=== PATIENT | female | born 1990 | race Caucasian/White ===

== ENCOUNTER → 2016-10-23 | Outpatient (CLI) | payer BC ==
--- NOTE | 2016-10-24 09:07 | US ---
EXAMINATION TYPE: US OB anatomy transabd DATE OF EXAM: 10/23/2016 3:31 PM COMPARISON: on PACS HISTORY: 26-year-old female large for dates, survey. TECHNIQUE: Transabdominal scanning. FINDINGS: EXAM MEASUREMENTS: GESTATIONAL AGE / DATING Physician Established: (19 weeks/2 days) EDC: 03/17/2017 Dates by LMP: does not correlate Dates by First Scan: (19 weeks/2 days) EDC: 03/17/2017 Dates by Current Scan for: (19 weeks/3 days) EDC: 03/16/2017 SURVEY IUP: Single PLACENTA: Posterior PREVIA: No previa BONILLA: 11.7 cm Normal CERVICAL LENGTH (transabdominal: norm > 3.0cm): 3.6 cm BIOMETRY PRESENTATION: Breech BPD: 4.4 cm 19 weeks / 2 days HC: 16.5 cm 19 weeks / 2 days AC: 13.1 cm 18 weeks / 5 days FL: 3.4 cm 20 weeks / 5 days ESTIMATED WEIGHT IN GRAMS: 299 grams ESTIMATED WEIGHT IN LBS/OZS: 0 lbs. 11 oz. WEIGHT PERCENTAGE BASED ON ESTABLISHED DATE: 61.6 % HC/AC: 1.26 (1.08 - 1.26) FL/AC: 25.8 HEART RATE: 151 bpm RHYTHM: Normal ANATOMY SEEN (within normal limits): Lateral Vent (< 1 cm) Cisterna Magna (< 1.1 cm) Nuchal Fold (< 0.6 cm) Cerebellum (varies with age) Choroid Plexus (bilateral) Midline Falx Cavus Septi Pellucidi Situs Nose / Lips Diaphragm Kidneys (bilateral) Bladder Cord Insert Arms (bilateral) Legs (bilateral) ANATOMY SEEN (does not appear within normal limits): Stomach - appears somewhat distended. Bowel - Sap Pp Consultant comments on an echogenic appearance to the bowel. This is not as well appreciate d on the provided images. ANATOMY NOT SEEN or SUBOPTIMALLY SEEN: Three Vessel Cord Outflow tracts: LVOT/RVOT Longitudinal Spine Transverse Spine Four Chamber Heart MATERNAL WALL MEASUREMENT: 6.3 cm from skin to anterior uterine wall (if exam limited due to body arguello bitus). TECHNOLOGIST NOTES: stomach appears large throughout exam, bowel in pelvis appears echogenic. Patient is scheduled for call back exam to better evaulate outflow tracts and 3 vessel cord not seen due to position. IMPRESSION: 1. Single live intrauterine with established gestational age of 19 weeks 2 days by dating s can. Current ultrasound biometry is concordant (19 weeks 3 days) placing the child at the 62nd percen tile for weight. 2. Given somewhat distended appearance to the stomach and the laborer fryer farm's comment regarding echogen ic appearance to the bowel, consider referring the patient for a more detailed survey at a high risk center in order to assess potential markers of aneuploidy. 3. A number of structures on the survey were not well seen (3 vessel cord, outflow tracts, spin e, four-chamber heart). While the patient has been scheduled for a rescan, it may be more prudent to reassess these structures at the high risk center. 4. BONILLA measured at the lower end of normal and HC/AC at the upper limits of normal.
== END | disposition home or self-care (01) ==
LOC: RADUSWWP 14:27
PROVIDERS: ATTEND Obstetrics & Gynecology
DX: O36.62X0 Maternal care for excessive fetal growth, second trimester, not applicable or unspecified (principal); Z3A.19 19 weeks gestation of pregnancy
CPT/HCPCS: 76811

== ENCOUNTER 2016-11-17 16:26 | Outpatient (CLI) | payer BC ==
[2016-11-17 17:01] LABS: Appearance,Urine Cloudy (Clear); Bilirubin,Urine Negative (Negative); Glucose,Urine (UA) Negative (Negative); Ketones,Urine Trace (Negative); Leukocyte Esterase,Urine Small (Negative); Mucus,Urine Rare /hpf; Nitrite,Urine Negative (Negative); PH, Urine 5.5 (5.0-8.0); Particle Count 14078; Protein,Urine 1+ (Negative); RBC,Urine >182 /hpf (0-5); Specific Gravity,Urine 1.019 (1.001-1.035); Squamous Epithelial Cell,Urine 2 /hpf (0-4); UA Billing (MACRO vs. MICRO) MICRO; Urobilinogen,Urine <2.0 mg/dL (<2.0)
== END 2016-11-17 17:45 | disposition home or self-care (01) ==
LOC: FBPOP 16:26
PROVIDERS: ATTEND Obstetrics & Gynecology
DX: Z53.9 Procedure and treatment not carried out, unspecified reason (principal)
CPT/HCPCS: 81001; 87086; 99213

== ENCOUNTER 2016-11-25 16:59 | Outpatient (CLI) | payer BC ==
[2016-11-25 17:21] VITALS: TEMP 97.6
[2016-11-25 17:28] LABS: Appearance,Urine Clear (Clear); Bacteria,Urine Rare /hpf; Bilirubin,Urine Negative (Negative); Glucose,Urine (UA) Negative (Negative); Ketones,Urine Negative (Negative); Leukocyte Esterase,Urine Negative (Negative); Mucus,Urine Occasional /hpf; Nitrite,Urine Negative (Negative); PH, Urine 5.5 (5.0-8.0); Particle Count 5507; Protein,Urine 1+ (Negative); RBC,Urine >182 /hpf (0-5); Specific Gravity,Urine 1.023 (1.001-1.035); Squamous Epithelial Cell,Urine 1 /hpf (0-4); UA Billing (MACRO vs. MICRO) MICRO; WBC,Urine 2 /hpf (0-5)
[2016-11-25] MEDS ORDERED: ONDANSETRON 4 MG/2 ML VIAL IM STA (17:51)
[2016-11-25] MEDS ORDERED: MORPHINE SULFATE 2 MG/ML SYRINGE IVP ONE (17:51)
[2016-11-25] MEDS ORDERED: LACTATED RINGERS 1,000 ML IV SCH (18:00)
[2016-11-25 20:32] VITALS: BP 131/59; PULSE 86; RESP 16
--- NOTE | 2016-11-28 21:55 | P.MSEPDOC ---
Presenting Problems - Arrival Data Date of Arrival on Unit: 11/25/16 Time of Arrival on Unit: 16:58 Mode of Transport: Wheelchair - Complaint OB-Reason for Admission/Chief Complaint: Pain Comment: left sided pain. Medical History - Information : 2 Para: 0 Term: 0 : 0 Abortions: Spontaneous or Elective: 1 Number of Living Children: 0 - Gestational Age Expected Date of Delivery: 03/17/17 Gestational Age by KIRK (wks/days): 24 Weeks and 3 Days - History Comment: previous history of kidney stones when a teenager Review of Systems - Review of Systems Constitutional: No problems Breast: No problems ENT: No problems Cardiovascular: No problems Respiratory: No problems Gastrointestinal: No problems Genitourinary: No problems Musculoskeletal: No problems Neurological: No problems Skin: No problems Vital Signs - Temperature Temperature: 97.6 F Temperature Source: Oral - Pulse Right Brachial Pulse Rate: 86 Pulse Assessment Method: Automatic Cuff - Respirations Respiratory Rate: 16 - Blood Pressure Right Arm Blood Pressure: 131/59 Blood Pressure Mean: 83 Blood Pressure Source: Automatic Cuff Medical Screen Scoring (Pre) - Total Score Total Score (Pre): 2 - Level of Risk Level of Risk: Low (0-5) Physician Notification (Pre) - Physician Notified Physician Notified Date: 11/25/16 Physician Notified Time: 17:48 Physician/Practitioner Notifed:: Dr Wheeler Spoke With: Dr Liam Jackson Order Received: Yes Medical Screen Scoring (Post) - Total Score Total Score (Post): 0 - Post Treatment Level of Risk Post Treatment Level of Risk: Low (0-5) Physician Notification (Post) - Physician Notified Physician Notified Date: 11/25/16 Physician Notified Time: 20:10 Physician/Practitioner Notified:: Liam Jackson Order Received: Yes (discharge home) Disposition - Disposition OB Disposition: Physician follow up in office, Discharge to home, Written follow up instructions reviewed Discharge Date: 11/25/16 Discharge Time: 20:20 I agree with the RN Medical Screening Exam: Yes Risk & Benefit of care provided described in d/c instruction: Yes
== END 2016-11-25 20:30 | disposition home or self-care (01) ==
LOC: FBPOP 16:59
PROVIDERS: ATTEND Obstetrics & Gynecology
DX: O99.89 Other specified diseases and conditions complicating pregnancy, childbirth and the puerperium (principal); R10.12 Left upper quadrant pain; R10.32 Left lower quadrant pain; Z3A.34 34 weeks gestation of pregnancy; Z87.442 Personal history of urinary calculi
CPT/HCPCS: 99214; 96360; 96361; 96375; 81001; J2270; 96365

== ENCOUNTER → 2016-12-07 | Outpatient (CLI) | payer BC ==
[2016-12-07 13:05] LABS: CH 28.9; CHCM 33.4; HCT 37.9 % (34.0-46.0); HGB 12.5 gm/dL (11.4-16.0); MCH 28.6 pg (25.0-35.0); MCHC 32.9 g/dL (31.0-37.0); MCV 86.9 fL (80.0-100.0); Mean Platelet Volume 7.5; RBC 4.36 m/uL (3.80-5.40); RDW 12.8 % (11.5-15.5); WBC 11.2 k/uL (3.8-10.6)
== END | disposition home or self-care (01) ==
LOC: LABWHC1 11:42
PROVIDERS: ATTEND Obstetrics & Gynecology
DX: Z34.82 Encounter for supervision of other normal pregnancy, second trimester (principal)
CPT/HCPCS: 36415; 82950; 85027; 86850

== ENCOUNTER → 2016-12-11 | Outpatient (CLI) | payer BC ==
[2016-12-11 12:37] LABS: Glucose 3 Hour, Gest 97 mg/dL
== END | disposition home or self-care (01) ==
LOC: LABWHC1 08:25
PROVIDERS: ATTEND Obstetrics & Gynecology
DX: O24.419 Gestational diabetes mellitus in pregnancy, unspecified control (principal); Z3A.00 Weeks of gestation of pregnancy not specified
CPT/HCPCS: 36415; 82951; 82952

== ENCOUNTER → 2017-02-12 | Outpatient (CLI) | payer BC ==
--- NOTE | 2017-02-12 10:23 | US ---
EXAMINATION TYPE: US OB anatomy transabd DATE OF EXAM: 02/12/2017 10:05 AM COMPARISON: Previous study dated 10/23/2016. HISTORY: Large for dates Third Trimester O36.3x0 LGA, pt has no complaints at this time TECHNIQUE: Transabdominal (TA) EXAM MEASUREMENTS: GESTATIONAL AGE / DATING Physician Established: (35 weeks/2 days) EDC: 03/17/2017 Dates by LMP: Unknown Dates by First Scan: (35 weeks/2 days) EDC: 03/17/2017 Dates by Current Scan for: (35 weeks/2 days) EDC: 03/17/2017 SURVEY IUP: Single PLACENTA: Posterior PREVIA: No previa BONILLA: 13.3 cm Normal CERVICAL LENGTH (transabdominal: norm > 3.0cm): 2.5 cm BIOMETRY PRESENTATION: Vertex BPD: 8.9 cm 36 weeks / 1 days HC: 31.7 cm 35 weeks / 5 days AC: 31.4 cm 35 weeks / 2 days FL: 6.8 cm 35 weeks / 0 days ESTIMATED WEIGHT IN GRAMS: 2654 grams ESTIMATED WEIGHT IN LBS/OZS: 5 lbs. 14 oz. WEIGHT PERCENTAGE BASED ON ESTABLISHED DATE: 49.6 % HC/AC: 1.01 Normal FL/AC: 22 Normal HEART RATE: 143 bpm RHYTHM: Normal ANATOMY SEEN (within normal limits): * Lateral Vent (< 1 cm) 0.4 cm Midline Falx Cavus Septi Pellucidi Stomach Situs Diaphragm Kidneys (bilateral) Bladder Cord Insert Three Vessel Cord Longitudinal Spine Transverse Spine ANATOMY NOT SEEN: * Cisterna Magna (< 1.1 cm) cm * Nuchal Fold (< 0.6 cm) cm * Cerebellum (varies with age) cm Choroid Plexus (bilateral) Four Chamber Heart Outflow tracts: LVOT/RVOT Nose / Lips Arms (bilateral) Legs (bilateral) Single, viable IUP/ Growth parameters wnl/ Cervix TA 2.5 cm, results called to Sarah Lundberg off ice and said TV not needed for cervical length IMPRESSION: NAVARRO FETUS PRESENT IN A VERTEX LIE WITH A GESTATIONAL AGE OF 35 WEEKS 2 DAYS +/- 3 WEEKS. ESTIMA SALINA DATE OF CONFINEMENT BASED ON THIS EXAMINATION IS 03/17/2017. PLEASE NOTE THE LIMITATIONS AND THE MORPHOLOGIC EXAMINATION.
== END | disposition home or self-care (01) ==
LOC: RADUSWWP 09:41
PROVIDERS: ATTEND Obstetrics & Gynecology
DX: O36.63X0 Maternal care for excessive fetal growth, third trimester, not applicable or unspecified (principal); Z3A.35 35 weeks gestation of pregnancy
CPT/HCPCS: 76811

== ENCOUNTER 2017-03-09 17:33 | Inpatient (IN) | payer BC ==
[2017-03-09] MEDS ORDERED: TERBUTALINE 1 MG/ML VIAL SQ PRN (18:11)
[2017-03-09] MEDS ORDERED: METHYLERGONOVINE 0.2 MG/ML 1 ML AMP IM PRN (18:11)
[2017-03-09] MEDS ORDERED: CARBOPROST TROMETHAMINE 250 MCG/ML 1 ML AMP IM PRN (18:11)
[2017-03-09] MEDS ORDERED: OXYTOCIN 10 UNIT/ML 1 ML VIAL IM PRN (18:11)
[2017-03-09] MEDS ORDERED: LIDOCAINE 1% (PF) 10 MG/ML (30 ML SDV) SQ PRN (18:11)
[2017-03-09] MEDS ORDERED: OXYTOCIN 20 UNITS/1000 ML NS 1,000 ML IV SCH (18:15)
[2017-03-09 19:02] LABS: Basophils % (A) 0 %; CH 28.9; CHCM 33.5; Eosinophils # (A) 0.1 k/uL (0-0.7); Eosinophils % (A) 1 %; HCT 38.1 % (34.0-46.0); HDW 2.66; HGB 12.6 gm/dL (11.4-16.0); Luc # (Auto) 0.25; Luc % (Auto) 2; Lymphocytes # (A) 2.1 k/uL (1.0-4.8); Lymphocytes % (A) 17 %; MCH 28.7 pg (25.0-35.0); MCV 86.8 fL (80.0-100.0); Mean Platelet Volume 7.5; Monocytes # (A) 0.5 k/uL (0-1.0); Monocytes % (A) 5 %; Neutrophils # (A) 9.1 k/uL (1.3-7.7); Neutrophils % (A) 75 %; RBC 4.39 m/uL (3.80-5.40); RDW 14.1 % (11.5-15.5); WBC 12.2 k/uL (3.8-10.6); WBC (Perox) 13.32
[2017-03-09] MEDS: LACTATED RINGERS 1,000 ML IV SCH (19:10)
[2017-03-09 19:37] VITALS: BMI 42.9
[2017-03-09] MEDS: BUTORPHANOL 1 MG/ML 1 ML VIAL IV PRN (23:39)
[2017-03-10] MEDS: BUTORPHANOL 1 MG/ML 1 ML VIAL IV PRN (02:07)
[2017-03-10] MEDS: LACTATED RINGERS 1,000 ML IV SCH ×5 (02:08→23:20)
[2017-03-10] MEDS ORDERED: SODIUM CHLORIDE 0.9% 100 ML BAG ONE (03:36)
[2017-03-10] MEDS ORDERED: fentaNYL (PF) 50 MCG/ML 5 ML AMP ONE (03:36)
[2017-03-10] MEDS ORDERED: BUPIVACAINE (PF) 0.25% 30 ML VIAL ONE (03:36)
[2017-03-10] MEDS ORDERED: BUPIVACAINE (PF) 0.25% 25 ML, fentaNYL (PF) 200 MCG in SODIUM CHLORIDE 0.9% 71 ML EPIDURAL ONE (04:01)
[2017-03-10] MEDS ORDERED: CLINDAMYCIN 900 MG in DEXTROSE 5% IN WATER 50 ML IVPB SCH ×4 (05:00→08:00)
--- NOTE | 2017-03-10 06:14 | P.HPOB ---
History of Present Illness H&P Date: 03/10/17 Chief Complaint: Spontaneous rupture of membranes on 03/09/2017 at approximately 4:45 PM This is a 26-year-old female 2 para 0 at 38-6/7 weeks with an estimated date of confinement of 03/17/2017, who presented with spontaneous rupture of membranes at approximately 4:45 PM on 03/09/2017. She denied feeling any regular contractions. care has been with Dr. Meredith and has been uncomplicated per patient. labs: Obstetrical ultrasound-normal anatomy Group B streptococcus-negative GC/Chlamydia-negative Random glucose-96 Hepatitis B surface antigen-negative Hemoglobin-13.5 Toxoplasma-negative Syphilis antibody-negative Rubella-nonimmune Blood type-B- Antibody screen-negative One hour Glucola-131, three-hour Glucola within normal limits RhoGAM was given at approximately 28 weeks Obstetrical history: . 1 miscarriage. Review of Systems Constitutional: Denies chills, Denies fever Eyes: denies blurred vision, denies pain Ears, nose, mouth and throat: Denies headache, Denies sore throat Cardiovascular: Denies chest pain, Denies shortness of breath Respiratory: Denies cough Gastrointestinal: Denies abdominal pain, Denies diarrhea, Denies nausea, Denies vomiting Genitourinary: Reports pelvic pain, Reports Musculoskeletal: Denies myalgias Integumentary: Denies pruritus, Denies rash Neurological: Denies numbness, Denies weakness Psychiatric: Denies anxiety, Denies depression Past Medical History Past Medical History: Asthma History of Any Multi-Drug Resistant Organisms: None Reported Past Surgical History: No Surgical Hx Reported Past Anesthesia/Blood Transfusion Reactions: No Reported Reaction Past Psychological History: No Psychological Hx Reported Smoking Status: Never smoker Past Alcohol Use History: None Reported Past Drug Use History: None Reported - Past Family History Mother Family Medical History: Hypertension Additional Family Medical History / Comment(s): Multiple Sclerosis Medications and Allergies Home Medications Medication Instructions Recorded Confirmed Type Pnv,Calcium 72/Iron/Folic Acid 1 tab PO DAILY MDD 1 03/09/17 03/09/17 History [ Plus Tablet] Allergies Allergy/AdvReac Type Severity Reaction Status Date / Time amoxicillin Allergy Unknown Verified 03/09/17 17:52 Exam Osteopathic Statement: *. No significant issues noted on an osteopathic structural exam other than those noted in the History and Physical/Consult. - Vital Signs Vital signs: Vital Signs Temp Pulse Resp BP Pulse Ox 03/09/17 19:34 96.4 F L 91 16 140/68 03/09/17 17:52 96.4 F L 91 16 140/68 98 Intake and Output 03/09/17 03/09/17 03/10/17 14:59 22:59 06:59 Intake Total 1999 Balance 1999 Intake: Intake, IV Titration 2000 Amount Lactated Ringers 1,000 ml 2000 @ 125 mls/hr IV .Q8H [facility] Rx#:[id number] Other: # Voids 3 1 Weight 113.398 kg Patient Weight 03/10/17 06:59 Weight 113.398 kg HEENT: Within normal limits Heart: Regular rate and rhythm Lungs: Clear to auscultation bilaterally Abdomen: Cervix: 1 cm/60%/-3 station, positive amnisure with clear fluid noted heart tones: Reactive Contractions: Irregular Extremities: Negative Homans Results Result Diagrams: 03/09/17 18:40 Abnormal Lab Results - Last 24 Hours (Table) 03/09/17 Range/Units 18:40 WBC 12.2 H (3.8-10.6) k/uL Neutrophils # 9.1 H (1.3-7.7) k/uL Assessment and Plan (1) 38 weeks gestation of Status: Acute (2) Spontaneous rupture of membranes Status: Acute Plan: Admission. Oxytocin augmentation of labor. Epidural anesthesia when making change. Possible antibiotics if concern for prolonged rupture membranes.
[2017-03-10] MEDS ORDERED: CITRIC ACID-SODIUM CITRATE 15 ML CUP PO ONE (08:52)
[2017-03-10] MEDS ORDERED: ceFAZolin 1,000 MG VIAL ONE (09:08)
[2017-03-10] MEDS ORDERED: KETOROLAC 30 MG/ML 1 ML VIAL ONE (09:08)
[2017-03-10] MEDS ORDERED: OXYTOCIN 10 UNIT/ML 1 ML VIAL ONE (09:08)
--- NOTE | 2017-03-10 10:03 | P.OP ---
Date of Procedure: 03/10/17 Preoperative Diagnosis: 1. Intrauterine at 39-0/7 weeks. 2. Nonreassuring heart tones Postoperative Diagnosis: Same Procedure(s) Performed: Primary low transverse section Implants: Anesthesia: epidural Surgeon: Kelsey Wheeler Fiber Design Engineer #1: Marco Antonio Ortiz Estimated Blood Loss (ml): 600 Pathology: other (Placenta) Condition: stable Disposition: floor Indications for Procedure: This is a 26-year-old female 2 para 0 who initially presented at 38-6/7 weeks with spontaneous rupture of membranes with clear fluid. She was only noted to be 1 cm at that time and was started on oxytocin augmentation of labor. She progressed to approximately 4-4-1/2 cm and did receive epidural anesthesia. She began having repetitive late decelerations and therefore oxytocin was turned off. Once the oxytocin was turned back on she began to have repetitive lates again and therefore the decision was made to proceed with section. I have discussed the risks, benefits, and alternative therapies for the above- mentioned procedure and for both sedation/anesthesia as well as necessary blood products administration, if indicated, as they pertain to this patient. The patient has indicated her understanding and acceptance of the risks and procedures discussed. Operative Findings: A viable female infant is noted in the vertex presentation with nuchal cord 1 and scores of 8 at 1 minute and 9 at 5 minutes and infant weight of 7 lbs. 5 oz. There was noted to be some caput formation and the baby was low in the pelvis. Normal uterus tubes and ovaries were noted. Description of Procedure: The patient is taken to the operating room where she is placed in the dorsal supine position with leftward tilt after epidural anesthesia is bolused. She is prepped and draped in the normal sterile fashion. Skin was tested and found to be adequately anesthetized. A Pfannenstiel skin incision was made with a scalpel. A second knife was used to carry the incision down to the underlying layer of fascia. The fascia was nicked in the midline with a scalpel and then extended laterally bilaterally with Weiss scissors. The anterior lip of the fascia was grasped with 2 Krissy clamps and then dissected off the underlying rectus muscle in the midline with Weiss scissors. The inferior aspect of the fascial incision was grasped with 2 Krissy clamps and dissected off the underlying rectus muscle and the midline with Weiss scissors. Next the peritoneum layer was tented up with 2 hemostats and then entered sharply with the scalpel. The incision is extended superiorly and inferiorly with Metzenbaum scissors. Next a DeLee retractor is placed. The vesicouterine peritoneum is entered sharply with Metzenbaum scissors and extended laterally bilaterally with Metzenbaum scissors and then the bladder flap is pushed inferiorly. The lower uterine segment is incised in transverse fashion with the scalpel and then bluntly entered with a hemostat. Clear fluid is noted. The incision was then extended laterally bilaterally with 2 fingers. Next the 's head is delivered through the incision. Nose and mouth are bulb suctioned. The remainder of the is easily delivered and placed on mother 's abdomen. Cord is clamped and cut. is taken to warmer by nursing staff. Cord blood is obtained secondary to Rh- status. Uterine fundus is gently massaged and placenta is delivered manually. Uterus is exteriorized and cleared of all clots and debris. Uterine incision is closed with 0 Vicryl suture in a running locked fashion. A second layer of 0 Vicryl suture is used in a running fashion for hemostasis. Once adequate hemostasis as assured, the vesicouterine peritoneum is reapproximated with 2-0 Vicryl suture in a running fashion. Posterior cul-de-sac is suctioned of all clots and debris. Uterus is returned to the abdomen. Incision is noted to be hemostatic. Peritoneal layer is closed with 0 Vicryl suture in a running fashion. Muscle layer is reapproximated with 0 Vicryl suture in interrupted fashion. Fascia layer is then closed with 0 PDS suture with 2 sutures meeting in the midline and the knots buried in either side and in the midline. The subcutaneous tissue was then closed with 2-0 Vicryl suture. Skin layer was then closed with joni. All sponge and needle counts are correct. The patient is taken to recovery room in stable condition.
[2017-03-10] MEDS ORDERED: LANOLIN CREAM 5 GM TUBE TOPICAL PRN (10:33)
[2017-03-10] MEDS ORDERED: NALOXONE 0.4 MG/ML 1 ML VIAL IV PRN (10:33)
[2017-03-10] MEDS ORDERED: OXYTOCIN 20 UNITS/1000 ML NS 1,000 ML IV SCH (10:33)
[2017-03-10] MEDS ORDERED: diphenhydrAMINE 50 MG CAP PO PRN (10:33)
[2017-03-10] MEDS ORDERED: ZOLPIDEM 5 MG TAB PO PRN (10:33)
[2017-03-10] MEDS ORDERED: IBUPROFEN 600 MG TAB PO PRN (10:33)
[2017-03-10] MEDS ORDERED: ONDANSETRON 4 MG/2 ML VIAL IVP PRN (10:33)
[2017-03-10] MEDS ORDERED: ACETAMINOPHEN TAB 325 MG TAB PO PRN (10:33)
[2017-03-10] MEDS ORDERED: MEASLES-MUMPS-RUBELLA VACC/PF 12,500 UNIT/0.5 ML VIAL SQ ONE (10:33)
[2017-03-10] MEDS ORDERED: METOCLOPRAMIDE 5 MG/ML 2 ML VIAL IVP PRN (10:33)
[2017-03-10] MEDS ORDERED: diphenhydrAMINE 50 MG/ML 1 ML VIAL IVP PRN ×2 (10:33)
[2017-03-10] MEDS ORDERED: diphenhydrAMINE 25 MG CAP PO PRN (10:33)
[2017-03-10] MEDS ORDERED: Acetaminophen-Codeine 300-30mg TAB PO PRN (10:33)
[2017-03-10] MEDS: HYDROmorphone PCA 5 MG/25 ML SYRINGE IV PRN ×3 (11:05→19:13)
[2017-03-10] MEDS: SENNOSIDES-DOCUSATE SODIUM 1 EACH TAB PO SCH (20:16)
[2017-03-10] MEDS: KETOROLAC 30 MG/ML 1 ML VIAL IVP PRN (20:25)
[2017-03-11] MEDS: KETOROLAC 30 MG/ML 1 ML VIAL IVP PRN ×2 (03:39→09:21)
[2017-03-11] MEDS: HYDROmorphone PCA 5 MG/25 ML SYRINGE IV PRN (05:50)
[2017-03-11 07:38] LABS: Basophils % (A) 0 %; CH 28.6; CHCM 33.3; Eosinophils # (A) 0.1 k/uL (0-0.7); Eosinophils % (A) 1 %; HCT 32.8 % (34.0-46.0); HDW 2.62; HGB 10.7 gm/dL (11.4-16.0); Luc # (Auto) 0.17; Luc % (Auto) 2; Lymphocytes # (A) 2.1 k/uL (1.0-4.8); Lymphocytes % (A) 21 %; MCH 28.2 pg (25.0-35.0); MCHC 32.7 g/dL (31.0-37.0); MCV 86.2 fL (80.0-100.0); Monocytes # (A) 0.5 k/uL (0-1.0); Monocytes % (A) 5 %; Neutrophils # (A) 7.3 k/uL (1.3-7.7); Neutrophils % (A) 72 %; RDW 14.2 % (11.5-15.5); WBC 10.3 k/uL (3.8-10.6); WBC (Perox) 11.03
--- NOTE | 2017-03-11 08:13 | P.PNOBGPC ---
Subjective - Subjective Principal diagnosis: Status post section postoperative day #1 Interval history: Patient is doing well. She is passing flatus and no bowel movement yet. Bleeding is slowing. She is breast-feeding without difficulty. Patient reports: Reports appetite normal, Reports voiding normally, Reports pain well controlled, Reports ambulating normally : doing well, nursing well Objective - Vital Signs Latest vital signs: Vital Signs Temp Pulse Resp BP Pulse Ox 03/11/17 03:54 98.2 F 96 18 124/81 95 03/10/17 23:55 98.3 F 85 18 120/57 98 03/10/17 20:00 98.2 F 97 18 127/66 03/10/17 16:00 98.1 F 87 16 113/72 03/10/17 12:08 85 16 134/62 03/10/17 11:38 62 16 131/62 03/10/17 11:08 75 16 121/58 97 03/10/17 10:53 69 16 121/58 03/10/17 10:38 80 16 116/55 03/10/17 10:33 98 03/10/17 10:19 76 16 121/64 98 03/10/17 10:08 97.6 F 96 16 115/64 Intake and Output 03/10/17 03/11/17 03/11/17 22:59 06:59 14:59 Intake Total 1000 1000 Output Total 200 Balance 1000 800 Intake: IV 1000 Lactated Ringers 1,000 ml 1000 @ 125 mls/hr IV .Q8H [facility] Rx#:[id number] Intake, IV Titration 1000 Amount Oxytocin 20 Units/1000 ml 1000 Ns 1,000 ml @ Per Protocol IV .Q0M [facility] Rx#: [id number] Output: Urine 200 Other: Voiding Method Indwelling Catheter - Exam Extremities: Present: normal, edema (Trace). Absent: tenderness Abdomen: Present: normal appearance, soft (Positive bowel sounds 4). Absent: distention, tenderness Incision: Present: normal, dry, intact. Absent: erythematous Uterus: Present: normal, firm. Absent: tenderness - Labs Labs: Abnormal Lab Results - Last 24 Hours (Table) 03/11/17 Range/Units 06:36 Hgb 10.7 L (11.4-16.0) gm/dL Hct 32.8 L (34.0-46.0) % Assessment and Plan (1) 38 weeks gestation of Current Visit: Yes Status: Acute Code(s): Z3A.38 - 38 WEEKS GESTATION OF SNOMED Code(s): 26195123 (2) Spontaneous rupture of membranes Current Visit: Yes Status: Acute Code(s): DEW1308 - SNOMED Code(s): 451805697 (3) delivery delivered Narrative/Plan: Impression is status post delivery postoperative day #1. Plan is to continue with postoperative care. Will discontinue PHYSICAL THERAPY SUPERVISOR pump today and switch to oral pain medications. Encouraged ambulation. Current Visit: Yes Status: Acute Code(s): O82 - ENCOUNTER FOR DELIVERY WITHOUT INDICATION SNOMED Code(s): 194708881
[2017-03-11] MEDS: SENNOSIDES-DOCUSATE SODIUM 1 EACH TAB PO SCH ×2 (10:13→20:36)
[2017-03-11 12:23] VITALS: RESP 16
[2017-03-11] MEDS: Acetaminophen-Codeine 300-30mg TAB PO PRN ×2 (12:28→20:36)
[2017-03-11] MEDS: LACTATED RINGERS 1,000 ML IV SCH (21:12)
[2017-03-11] MEDS ORDERED: Rhogam IMMUNE GLOBULIN 1,500 UNIT/1 ML IM ONE (21:50)
[2017-03-11] MEDS ORDERED: DIPH,PERTUS(ACELL)TETVAC-LF 0.5 ML VIAL IM ONE (21:54)
[2017-03-12] MEDS: Acetaminophen-Codeine 300-30mg TAB PO PRN (08:25)
[2017-03-12] MEDS: SENNOSIDES-DOCUSATE SODIUM 1 EACH TAB PO SCH (08:26)
[2017-03-12 08:40] VITALS: BP 136/71; PULSE 96; TEMP 97.7
--- NOTE | 2017-03-12 09:34 | P.DS ---
Providers Date of admission: 03/09/17 17:58 Expected date of discharge: 03/12/17 Attending physician: Jaz Meredith Primary care physician: Stated None - Discharge Diagnosis(es) (1) delivery delivered Current Visit: Yes Status: Acute Hospital Course: Patient presented with spontaneous rupture membranes and in labor. She underwent a primary low transverse for failure to progress and nonreassuring heart tones. Her postoperative course was uncomplicated. She is denying nausea, vomiting, chest pain, shortness of breath or calf pain. Her incision is clean, dry, intact. She'll be discharged home postoperative day #2 in stable condition to follow-up with me in one week. Plan - Discharge Summary New Discharge Prescriptions: New Acetaminophen-Codeine 300-30mg [Tylenol w/codeine #3] 2 each PO Q4HR PRN #30 tab PRN Reason: Moderate To Severe Pain Ibuprofen [Motrin] 600 mg PO Q6HR PRN #30 tab PRN Reason: Mild Pain Or Fever >= 100.5 No Action Pnv,Calcium 72/Iron/Folic Acid [ Plus Tablet] 1 tab PO DAILY MDD 1 Discharge Medication List Pnv,Calcium 72/Iron/Folic Acid [ Plus Tablet] 1 tab PO DAILY MDD 1 03/09 [History] Acetaminophen-Codeine 300-30mg [Tylenol w/codeine #3] 2 each PO Q4HR PRN #30 tab 03/12/17 [Rx] Ibuprofen [Motrin] 600 mg PO Q6HR PRN #30 tab 03/12/17 [Rx] Follow up Appointment(s)/Referral(s): Jaz Meredith DO [Doctor of Osteopathic Medicine] - 1 Week Discharge Disposition: HOME SELF-CARE
== END 2017-03-12 14:35 | disposition home or self-care (01) | DRG 766 ==
LOC: FBPOP 17:33 → 4FBP 17:58
PROVIDERS: ADMIT Obstetrics & Gynecology; ATTEND Obstetrics & Gynecology
PROC: 00HU33Z Insertion of Infusion Device into Spinal Canal, Percutaneous Approach (ICD-10-PCS; 2017-03-09)
PROC: 3E0R3CZ (ICD-10-PCS; 2017-03-09)
PROC: 3E0134Z Introduction of Serum, Toxoid and Vaccine into Subcutaneous Tissue, Percutaneous Approach (ICD-10-PCS; 2017-03-10)
PROC: 10D00Z1 Extraction of Products of Conception, Low, Open Approach (ICD-10-PCS; principal; 2017-03-10 08:45)
PROC: 3E0234Z Introduction of Serum, Toxoid and Vaccine into Muscle, Percutaneous Approach (ICD-10-PCS; 2017-03-11)
DX: O69.81X0 Labor and delivery complicated by cord around neck, without compression, not applicable or unspecified (principal); J45.909 Unspecified asthma, uncomplicated; Z37.0 Single live birth; O62.2 Other uterine inertia; O76 Abnormality in fetal heart rate and rhythm complicating labor and delivery; O99.52 Diseases of the respiratory system complicating childbirth; Z23 Encounter for immunization; Z3A.38 38 weeks gestation of pregnancy; Z79.899 Other long term (current) drug therapy
CPT/HCPCS: 59025; 84112; 85025; 88307; 90471; 90707; 90715; 99213

== ENCOUNTER → 2018-05-09 | Outpatient (CLI) | payer OTHER ==
[2018-05-09 10:19] LABS: Basophils % (A) 0 %; Eosinophils % (A) 0 %; HCT 40.4 % (34.0-46.0); HGB 13.5 gm/dL (11.4-16.0); Lymphocytes % (A) 10 %; MCH 28.2 pg (25.0-35.0); MCHC 33.4 g/dL (31.0-37.0); MCV 84.5 fL (80.0-100.0); Mean Platelet Volume 6.5; Monocytes # (A) 0.9 k/uL (0-1.0); Monocytes % (A) 9 %; Neutrophils # (A) 7.4 k/uL (1.3-7.7); Neutrophils % (A) 78 %; Platelet Count 226 k/uL (150-450); RBC 4.78 m/uL (3.80-5.40); RDW 12.4 % (11.5-15.5); WBC 9.5 k/uL (3.8-10.6)
[2018-05-09 10:37] LABS: ALT 30 U/L (9-52); AST 22 U/L (14-36); Albumin 4.2 g/dL (3.5-5.0); Alkaline Phosphatase 88 U/L (38-126); Anion Gap 12 mmol/L; Blood Urea Nitrogen 12 mg/dL (7-17); Calcium 8.9 mg/dL (8.4-10.2); Carbon Dioxide 27 mmol/L (22-30); Chloride 100 mmol/L (98-107); Cholesterol 145 mg/dL (<200); Glucose 100 mg/dL (74-99); HDL Cholesterol 40 mg/dL (40-60); LDL Cholesterol,Calculated 90 mg/dL (0-99); Sodium 139 mmol/L (137-145); Total Bilirubin 0.7 mg/dL (0.2-1.3); Total Protein 7.1 g/dL (6.3-8.2); Triglycerides 75 mg/dL (<150)
== END | disposition home or self-care (01) ==
LOC: LABWHC1 09:26
PROVIDERS: ATTEND Family Medicine
DX: Z00.00 Encounter for general adult medical examination without abnormal findings (principal)
CPT/HCPCS: 36415; 80053; 80061; 84443; 85025

== ENCOUNTER → 2018-05-09 | Outpatient (CLI) | payer OTHER ==
--- NOTE | 2018-05-09 14:11 | XR ---
EXAMINATION TYPE: XR KUB DATE OF EXAM: 05/09/2018 10:11 AM CLINICAL HISTORY: Left-sided abdominal pain TECHNIQUE: Single supine KUB image of the abdomen is obtained. COMPARISON: None. FINDINGS: There are bilateral renal calculi. On the right there are likely midpole renal calculi cheng uring 6 mm, 7 mm, and 2 mm and the left there are likely upper pole and midpole renal calculi measur ing 4 mm and 9 mm. Scattered gas is seen in nondilated small bowel loops. Gas and fecal material is s een in nondilated colon. The osseous structures are intact. IMPRESSION: Bilateral nephrolithiasis. Renal ultrasound could assess for obstructive uropathy.
== END | disposition home or self-care (01) ==
LOC: RADXRMAIN 09:47
PROVIDERS: ATTEND Family Medicine
DX: N20.0 Calculus of kidney (principal)
CPT/HCPCS: 74018

== ENCOUNTER → 2018-05-16 | Outpatient (CLI) | payer OTHER ==
[2018-05-17 01:38] LABS: Gliadin AB IgA, Unit 5.2 U/mL
[2018-05-17 01:58] LABS: Clam IgE <0.10 kU/L; Codfish IgE <0.10 kU/L; Egg White IgE <0.10 kU/L; Peanut IgE <0.10 kU/L; Scallop IgE <0.10 kU/L; Shrimp IgE <0.10 kU/L; Soybean IgE <0.10 kU/L; Walnut IgE (Food) <0.10 kU/L
== END | disposition home or self-care (01) ==
LOC: LABWHC1 15:15
PROVIDERS: ATTEND Family Medicine
DX: K59.09 Other constipation (principal); R19.7 Diarrhea, unspecified; Z91.018 Allergy to other foods
CPT/HCPCS: 36415; 82785; 83516; 86003

== ENCOUNTER → 2018-05-30 | Outpatient (CLI) | payer OTHER ==
--- NOTE | 2018-05-31 07:01 | US ---
EXAMINATION TYPE: US kidneys/renal and bladder DATE OF EXAM: 05/30/2018 COMPARISON: KUB May 09, 2018 CLINICAL HISTORY: N20.0 Kidney stones. Large body habitus uterus large bladder also ordered , please give volume for full bladder and post void EXAM MEASUREMENTS: Right Kidney: 10.9 x 3.7 x 6.3 cm Left Kidney: 10.8 x 4.4 x 4.7 cm Post Void Residual Volume: 0.94 mL bladder volume : 60.33 ml Right Kidney: no hydronephrosis, hyperechoic nonshadowing foci Left Kidney: no hydronephrosis, hyperechoic nonshadowing foci Bladder: wnl Bilateral Jets seen: no Normal Post Void Residual: yes There is no evidence for hydronephrosis at this point in time. Nephrolithiasis is redemonstrated. No masses are identified. The urinary bladder is not greatly distended. Bilateral ureteral jets are n ot seen. IMPRESSION: No hydronephrosis is evident bilaterally. Hyperechoic foci correspond to renal calculi seen better on plain films.
== END | disposition home or self-care (01) ==
LOC: RADUSWWP 15:21
PROVIDERS: ATTEND Family Medicine
DX: N20.0 Calculus of kidney (principal)
CPT/HCPCS: 76770

== ENCOUNTER 2018-06-20 08:10 | Day surgery (SDC) | payer OTHER ==
[2018-06-18 10:24] VITALS: BMI 39.4
[~2018-06-20 08:10] MED LIST: LACTATED RINGERS 1,000 ML IV SCH
[2018-06-20 08:35] VITALS: RESP 16; TEMP 98.3
[2018-06-20] MEDS ORDERED: MIDAZOLAM 2 MG/2 ML VIAL ONE (09:15)
[2018-06-20] MEDS ORDERED: LIDOCAINE 1% INJ 10MG/ML (20 ML MDV) ONE (09:15)
[2018-06-20] MEDS ORDERED: fentaNYL (PF) 50 MCG/ML 2 ML AMP ONE (09:15)
[2018-06-20] MEDS ORDERED: PROPOFOL 10 MG/ML 20 ML VIAL IV ONE (09:15)
--- NOTE | 2018-06-20 10:04 | P.PCN ---
Date of Procedure: 06/20/18 Procedure(s) Performed: Procedure: 1. Esophagogastroduodenoscopy and biopsy. 2. Colonoscopy and biopsy. Preoperative diagnosis: Abdominal bloating and change in bowel habits. Postoperative diagnosis: 1. Small sliding hiatal hernia with no obvious esophagitis or complicated reflux disease. 2. Mild gastritis and duodenitis. 3. Normal colon and terminal ileum. 4. Multiple biopsies obtained from the duodenum, antrum, esophagus, terminal ileum and random colon. Preparation: HalfLytely prep. Sedation: Was provided by anesthesia. Brief clinical history: The patient is a 27-year-old female who was evaluated in the office regarding chronic symptoms of abdominal pain, bloating and irregular bowel movements. She reported nausea but no vomiting. No bleeding or unintentional weight loss. This evaluation is to assess for inflammatory bowel disease, celiac disease or other pathology. She has a cousin with Crohn' s. Procedure: With the patient on her left lateral decubitus position and after informed consent and adequate sedation, I passed the Olympus-GIF 160 video upper endoscope through the cricopharyngeus down the esophagus. There was a small sliding hiatal hernia but no obvious esophagitis or complicated reflux disease. The endoscope was then passed into the stomach which was insufflated with air and inspected in detail including the retroflex view in the cardia. There was some mottling and erythema in the antrum but no ulcers or erosions. Pyloric channel did not show any ulcers. Duodenal bulb showed some erythema and a faint erosion or 2 but no ulcers or bleeding. Post bulbar area and descending duodenum within normal limits. I obtained biopsies from the duodenum , antrum and esophagus then the endoscope was withdrawn and I proceeded with the colonoscopy. Perianal area did not show any fissures or fistulas. There were no masses felt on digital rectal examination. The Olympus CFQ 160L video colonoscope was then inserted in the rectum in the usual fashion and advanced to the cecum. I intubated the ileocecal valve and examined the terminal ileum. Terminal ileum and colon appeared healthy with no edema, erythema, friability, ulceration, exudation or spontaneous bleeding. No polyps or tumors were seen or any obvious diverticular disease or other pathology. I obtained the multiple biopsies from the terminal ileum and randomly from the colon then I retroflexed the endoscope in the rectum before the endoscope was withdrawn. The patient tolerated the procedure well. Plan: The patient was reassured. Will await biopsy results. She is scheduled to follow-up in the office next month. We would keep you updated on her progress.
[2018-06-20 10:16] VITALS: BP 98/62; PULSE 76
== END 2018-06-20 11:01 | disposition home or self-care (01) ==
LOC: ORWHC2ENDO 08:10
DX: K29.50 Unspecified chronic gastritis without bleeding (principal); K21.0 Gastro-esophageal reflux disease with esophagitis; K29.80 Duodenitis without bleeding; K44.9 Diaphragmatic hernia without obstruction or gangrene; R19.4 Change in bowel habit; J45.909 Unspecified asthma, uncomplicated; Z87.442 Personal history of urinary calculi; Z79.899 Other long term (current) drug therapy; Z88.0 Allergy status to penicillin
CPT/HCPCS: 43239; 45380; 81025; 88305

== ENCOUNTER 2019-04-18 07:17 | Emergency (ER) | payer OTHER ==
[2019-04-18] MEDS ORDERED: MORPHINE SULFATE 4 MG/ML SYRINGE IV STA (07:36)
[2019-04-18] MEDS ORDERED: SODIUM CHLORIDE 0.9% 1,000 ML IV STA ×2 (07:36)
[2019-04-18] MEDS ORDERED: diphenhydrAMINE 50 MG/ML 1 ML VIAL IVP STA (07:40)
[2019-04-18] MEDS ORDERED: METOCLOPRAMIDE 5 MG/ML 2 ML VIAL IVP STA (07:40)
--- NOTE | 2019-04-18 07:58 | ED ---
Abdominal Pain HPI - General Chief Complaint: Abdominal Pain Stated Complaint: Flank pain Time Seen by Provider: 04/18/19 07:22 Source: patient, RN notes reviewed, old records reviewed Mode of arrival: ambulatory Limitations: no limitations - History of Present Illness Initial Comments: 28-year-old female recently possibly 5 weeks. She presents emergency department today with sudden onset of right-sided abdominal and flank pain. Patient reports symptoms started 2 hours ago. She has a extensive history of kidney stones and like she is passing a kidney stone at this time. Patient relates that she's had no fevers or chills Patient has had some episodes of dry heaving. Patient states this is her third previous [employer] SERVICES ANALYST is Dr. Teddy forde. Patient relates that she has had no vaginal bleeding or discharge. - Related Data Home Medications Medication Instructions Recorded Confirmed Pnv,Calcium 72/Iron/Folic Acid 1 tab PO DAILY 03/09/17 04/18/19 [ Plus Tablet] DULoxetine HCL [Cymbalta] 60 mg PO HS 04/18/19 04/18/19 Previous Rx's Medication Instructions Recorded Acetaminophen with Codeine 1 tab PO Q6H PRN 3 Days #12 tab 04/18/19 [Tylenol w/codeine #3] Metoclopramide HCl [Reglan] 10 mg PO TID #20 tablet 04/18/19 Tamsulosin HCl [Flomax] 0.4 mg PO DAILY #10 capsule 04/18/19 Allergies Allergy/AdvReac Type Severity Reaction Status Date / Time amoxicillin Allergy Unknown Verified 04/18/19 08:15 Childhood gluten AdvReac Diarrhea Verified 04/18/19 08:15 Review of Systems ROS Statement: Those systems with pertinent positive or pertinent negative responses have been documented in the HPI. ROS Other: All systems not noted in ROS Statement are negative. Past Medical History Past Medical History: Asthma Additional Past Medical History / Comment(s): migraines, bronchitis, constipation alternating with diarrhea, hx kidney stones, hx kidney and bladder infections History of Any Multi-Drug Resistant Organisms: None Reported Past Surgical History: Section Past Anesthesia/Blood Transfusion Reactions: Motion Sickness Past Psychological History: Anxiety, Depression Smoking Status: Never smoker Past Alcohol Use History: None Reported Past Drug Use History: None Reported - Past Family History Mother Family Medical History: No Reported History Additional Family Medical History / Comment(s): Multiple Sclerosis General Exam - General Exam Comments Initial Comments: Patient is a 28-year-old female para Patient appears in moderate discomfort. Limitations: no limitations General appearance: alert, in no apparent distress Head exam: Present: atraumatic, normocephalic, normal inspection Eye exam: Present: normal appearance, PERRL, EOMI. Absent: scleral icterus, conjunctival injection, periorbital swelling ENT exam: Present: normal exam, mucous membranes moist Neck exam: Present: normal inspection. Absent: tenderness, meningismus, lymphadenopathy Respiratory exam: Present: normal lung sounds bilaterally. Absent: respiratory distress, wheezes, rales, rhonchi, stridor Cardiovascular Exam: Present: regular rate, normal rhythm, normal heart sounds. Absent: systolic murmur, diastolic murmur, rubs, gallop, clicks GI/Abdominal exam: Present: soft, normal bowel sounds. Absent: distended, tende rness, guarding, rebound, rigid Extremities exam: Present: normal inspection, full ROM, normal capillary refill. Absent: tenderness, pedal edema, joint swelling, calf tenderness Back exam: Present: normal inspection Neurological exam: Present: alert, oriented X3, CN II-XII intact Psychiatric exam: Present: normal affect, normal mood Skin exam: Present: warm, dry, intact, normal color. Absent: rash Course Vital Signs 04/18/19 07:19 Temperature 97.9 F Pulse Rate 85 Respiratory 18 Rate Blood Pressure 135/90 O2 Sat by Pulse 98 Oximetry - Reevaluation(s) Reevaluation #1: 04/18/19 07:58 I discussed with symmetrical Patient receiving IV morphine with a recently pre gnant. Patient appears in significant discomfort. Patient agrees to receive 1 dose of morphine. Medical Decision Making - Medical Decision Making Patient is a 28-year-old female with a history of kidney stones. She presents with sudden onset of right flank pain. She is currently early . The same Patient has no vaginal bleeding or discharge. Clinical presentation of kidney stone with an onset of pain. Urinalysis positive for blood. No significant infection. Lab work was unremarkable. Ultrasound shows with suspected to be intrauterine but too early to detect heart tones. Patient's blood type is B-. She denies any vaginal bleeding or discharge. Declined pelvic exam at this time. Patient will not receive RhoGAM. Ultrasound kidney does show evidence of right-sided hydronephrosis with a 1.9 cm stone in the renal pelvis. Patient may have further stone causing hydronephrosis. At this time Patient is pain is manageable a dose of morphine. I discussed the Patient needs follow-up with urology and [employer] SERVICES ANALYST. Discussed short course of Tylenol codeine for pain as well as Flomax and Reglan. Patient was informed of risk of these medications in . - Lab Data Result diagrams: 04/18/19 07:42 04/18/19 07:42 Lab Results 04/18/19 04/18/19 04/18/19 Range/Units 07:42 07:42 07:42 WBC 9.5 (3.8-10.6) k/uL RBC 4.80 (3.80-5.40) m/uL Hgb 13.2 (11.4-16.0) gm/dL Hct 40.5 (34.0-46.0) % MCV 84.3 (80.0-100.0) fL MCH 27.5 (25.0-35.0) pg MCHC 32.6 (31.0-37.0) g/dL RDW 12.8 (11.5-15.5) % Plt Count 267 (150-450) k/uL Neutrophils % 65 % Lymphocytes % 26 % Monocytes % 4 % Eosinophils % 3 % Basophils % 0 % Neutrophils # 6.2 (1.3-7.7) k/uL Lymphocytes # 2.5 (1.0-4.8) k/uL Monocytes # 0.4 (0-1.0) k/uL Eosinophils # 0.3 (0-0.7) k/uL Basophils # 0.0 (0-0.2) k/uL Sodium 138 (137-145) mmol/L Potassium 4.3 (3.5-5.1) mmol/L Chloride 108 H (98-107) mmol/L Carbon Dioxide 19 L (22-30) mmol/L Anion Gap 11 mmol/L BUN 11 (7-17) mg/dL Creatinine 0.53 (0.52-1.04) mg/dL Est GFR (CKD-EPI)AfAm >90 (>60 ml/min/1.73 sqM) Est GFR (CKD-EPI)NonAf >90 (>60 ml/min/1.73 sqM) Glucose 116 H (74-99) mg/dL Calcium 8.8 (8.4-10.2) mg/dL Total Bilirubin 0.5 (0.2-1.3) mg/dL AST 22 (14-36) U/L ALT 24 (9-52) U/L Alkaline Phosphatase 53 (38-126) U/L Total Protein 6.9 (6.3-8.2) g/dL Albumin 4.1 (3.5-5.0) g/dL Amylase 53 (30-110) U/L Lipase 57 (23-300) U/L HCG, Quant 1691.0 mIU/mL Urine Color Yellow Urine Appearance Cloudy H (Clear) Urine pH 6.0 (5.0-8.0) Ur Specific [place] 1.029 (1.001-1.035) Urine Protein 1+ H (Negative) Urine Glucose (UA) Negative (Negative) Urine Ketones Negative (Negative) Urine Blood Moderate H (Negative) Urine Nitrite Negative (Negative) Urine Bilirubin Negative (Negative) Urine Urobilinogen <2.0 (<2.0) mg/dL Ur Leukocyte Esterase Trace H (Negative) Urine RBC >182 H (0-5) /hpf Urine WBC 11 H (0-5) /hpf Ur Squamous Epith Cells 6 H (0-4) /hpf Urine Bacteria Rare H (None) /hpf Urine Mucus Rare H (None) /hpf Blood Type Blood Type Recheck 04/18/19 Range/Units 07:42 WBC (3.8-10.6) k/uL RBC (3.80-5.40) m/uL Hgb (11.4-16.0) gm/dL Hct (34.0-46.0) % MCV (80.0-100.0) fL MCH (25.0-35.0) pg MCHC (31.0-37.0) g/dL RDW (11.5-15.5) % Plt Count (150-450) k/uL Neutrophils % % Lymphocytes % % Monocytes % % Eosinophils % % Basophils % % Neutrophils # (1.3-7.7) k/uL Lymphocytes # (1.0-4.8) k/uL Monocytes # (0-1.0) k/uL Eosinophils # (0-0.7) k/uL Basophils # (0-0.2) k/uL Sodium (137-145) mmol/L Potassium (3.5-5.1) mmol/L Chloride (98-107) mmol/L Carbon Dioxide (22-30) mmol/L Anion Gap mmol/L BUN (7-17) mg/dL Creatinine (0.52-1.04) mg/dL Est GFR (CKD-EPI)AfAm (>60 ml/min/1.73 sqM) Est GFR (CKD-EPI)NonAf (>60 ml/min/1.73 sqM) Glucose (74-99) mg/dL Calcium (8.4-10.2) mg/dL Total Bilirubin (0.2-1.3) mg/dL AST (14-36) U/L ALT (9-52) U/L Alkaline Phosphatase (38-126) U/L Total Protein (6.3-8.2) g/dL Albumin (3.5-5.0) g/dL Amylase (30-110) U/L Lipase (23-300) U/L HCG, Quant mIU/mL Urine Color Urine Appearance (Clear) Urine pH (5.0-8.0) Ur Specific [place] (1.001-1.035) Urine Protein (Negative) Urine Glucose (UA) (Negative) Urine Ketones (Negative) Urine Blood (Negative) Urine Nitrite (Negative) Urine Bilirubin (Negative) Urine Urobilinogen (<2.0) mg/dL Ur Leukocyte Esterase (Negative) Urine RBC (0-5) /hpf Urine WBC (0-5) /hpf Ur Squamous Epith Cells (0-4) /hpf Urine Bacteria (None) /hpf Urine Mucus (None) /hpf Blood Type B Negative Blood Type Recheck No - Radiology Data Radiology results: report reviewed 4.8 cm intrauterine fluid collection likely her presenting early intrauterine with residual reaction with however no yolk sac pole seen. There for ectopic and sweatiness torsion cannot be ruled out. Short- term follow-up assuming she G level pelvic ultrasound 5-7 days is recommended. Moderate right hydronephrosis with multiple renal colliculi largest and pelvis measuring 1.9 cm. Additional nonobstructing bilateral renal colliculi To 1.2 cm on the left. Disposition Clinical Impression: Early stage of , Right kidney stone Disposition: HOME SELF-CARE Condition: Good Instructions (If sedation given, give patient instructions): Ureteral Stones (ED) Additional Instructions: Patient has a follow-up with your [employer] SERVICES ANALYST. Repeat her hCG levels in 2 days. Rest, remain hydrated. Use the medications as prescribed. Prescriptions: Tamsulosin HCl [Flomax] 0.4 mg PO DAILY #10 capsule Metoclopramide HCl [Reglan] 10 mg PO TID #20 tablet Acetaminophen with Codeine [Tylenol w/codeine #3] 1 tab PO Q6H PRN 3 Days #12 tab PRN Reason: Pain Is patient prescribed a controlled substance at d/c from ED?: No Referrals: Blaze Escobar MD [Primary Care Provider] - 1-2 days Time of Disposition: 10:39
[2019-04-18 07:59] LABS: Basophils % (A) 0 %; Eosinophils # (A) 0.3 k/uL (0-0.7); Eosinophils % (A) 3 %; HCT 40.5 % (34.0-46.0); HGB 13.2 gm/dL (11.4-16.0); Lymphocytes # (A) 2.5 k/uL (1.0-4.8); Lymphocytes % (A) 26 %; MCH 27.5 pg (25.0-35.0); MCHC 32.6 g/dL (31.0-37.0); MCV 84.3 fL (80.0-100.0); Mean Platelet Volume 6.3; Monocytes # (A) 0.4 k/uL (0-1.0); Monocytes % (A) 4 %; Neutrophils # (A) 6.2 k/uL (1.3-7.7); Neutrophils % (A) 65 %; Platelet Count 267 k/uL (150-450); RDW 12.8 % (11.5-15.5); WBC 9.5 k/uL (3.8-10.6)
[2019-04-18 08:03] LABS: Appearance,Urine Cloudy (Clear); Bacteria,Urine Rare /hpf; Bilirubin,Urine Negative (Negative); Blood,Urine Moderate (Negative); Color,Urine Yellow; Glucose,Urine (UA) Negative (Negative); Ketones,Urine Negative (Negative); Leukocyte Esterase,Urine Trace (Negative); Mucus,Urine Rare /hpf; Nitrite,Urine Negative (Negative); Protein,Urine 1+ (Negative); RBC,Urine >182 /hpf (0-5); Specific Gravity,Urine 1.029 (1.001-1.035); Squamous Epithelial Cell,Urine 6 /hpf (0-4); Urobilinogen,Urine <2.0 mg/dL (<2.0); WBC,Urine 11 /hpf (0-5)
[2019-04-18 08:13] LABS: ALT 24 U/L (9-52); AST 22 U/L (14-36); African American GFR (CKD) >90 (>60 ml/min/1.73 sqM); Albumin 4.1 g/dL (3.5-5.0); Alkaline Phosphatase 53 U/L (38-126); Amylase 53 U/L (30-110); Anion Gap 11 mmol/L; Blood Urea Nitrogen 11 mg/dL (7-17); Calcium 8.8 mg/dL (8.4-10.2); Carbon Dioxide 19 mmol/L (22-30); Chloride 108 mmol/L (98-107); Glucose 116 mg/dL (74-99); Sodium 138 mmol/L (137-145); Total Bilirubin 0.5 mg/dL (0.2-1.3); Total Protein 6.9 g/dL (6.3-8.2)
[2019-04-18 08:20] LABS: Potassium 4.3 mmol/L (3.5-5.1)
--- NOTE | 2019-04-18 09:41 | US ---
EXAMINATION TYPE: Transabdominal DATE OF EXAM: 04/18/2019 9:24 AM COMPARISON: NONE CLINICAL HISTORY: Pain. RLQ pain, no bleeding, EXAM PERFORMED: OBTA/OBTA EXAM MEASUREMENTS: GESTATIONAL AGE / DATING Physician Established: not established Dates by LMP: (5 weeks/0 days) EDC: 12/19/2019 Dates by First Scan: No previous this is first scan Dates by Current Scan for: too early to date MATERNAL ANATOMY Uterus: 7.2 x 5.5 x 4.8cm Right Ovary: 4.0 x 2.9 x 3.0cm Left Ovary: 2.0 x 1.7 x 1.7cm Post CDS / Adnexa: mild ff on the left Presence of free fluid: mild on the left Presence of corpus luteal cyst: yes, right ovary = 2.7cm Presence of subchorionic bleed: no GESTATION / SURVEY MSD: 0.48cm - measuring out of range, less then 5 weeks Date of LMP: 03/14/2019 Beta HcG (if available): pending IMPRESSION: 0.48 cm intrauterine fluid collection, likely representing early intrauterine with decidual reaction however no yolk sac, pole, or cardiac activity are yet seen given the small size of t he probable gestational sac and therefore ectopic and spontaneous cannot be ruled out. Short-term follow-up serial serum beta hCG and pelvic ultrasound in 5-7 days are recommended.
--- NOTE | 2019-04-18 09:43 | US ---
EXAMINATION TYPE: US renals and bladder DATE OF EXAM: 04/18/2019 COMPARISON: NONE CLINICAL HISTORY: Pain. rt flank pain, h.o renal stones EXAM MEASUREMENTS: Right Kidney: 12.1 x 6.1 x 6.4 cm Left Kidney: 11.2 x 4.2 x 5.9 cm Right Kidney: Moderate hydronephrosis seen with multiple stones, largest mid pole = 1.9cm. Multiple s maller nonobstructing renal calculi are seen. Left Kidney: multiple stones seen, largest midpole = 1.2cm Bladder: wnl Bilateral Jets seen: yes No suspicious masses are identified. The urinary bladder is anechoic. Bilateral ureteral jets are s een. IMPRESSION: 1. Moderate right hydronephrosis and multiple renal calculi with the largest in the renal pelvis cheng uring 1.9 cm. 2. Additional nonobstructing bilateral renal calculi measuring up to 1.2 cm on the left.
[2019-04-18 10:53] VITALS: BP 131/69; PULSE 71; RESP 19; TEMP 97.8
== END 2019-04-18 10:53 | disposition home or self-care (01) ==
LOC: EC 07:17
DX: O99.89 Other specified diseases and conditions complicating pregnancy, childbirth and the puerperium (principal); N13.2 Hydronephrosis with renal and ureteral calculous obstruction; O99.341 Other mental disorders complicating pregnancy, first trimester; F32.9 Major depressive disorder, single episode, unspecified; Z3A.01 Less than 8 weeks gestation of pregnancy; Z79.899 Other long term (current) drug therapy; Z88.0 Allergy status to penicillin; Z91.018 Allergy to other foods
CPT/HCPCS: 36415; 86900; 86901; 80053; 82150; 83690; 85025; 81001; 84702; 87086; 76801; 76817; 76770; 99284; 96374; 96375 ×2; 96361 ×3; J2270; J1200; J2765

== ENCOUNTER → 2019-04-20 | Outpatient (CLI) | payer OTHER | END | disposition home or self-care (01) | LOC: LABMAIN 09:05 | PROVIDERS: ATTEND Physician Assistant Medical | DX: O20.0 Threatened abortion (principal); Z3A.00 Weeks of gestation of pregnancy not specified | CPT/HCPCS: 36415; 84702 ==

== ENCOUNTER 2019-05-20 05:43 | Observation (INO) | payer OTHER ==
[2019-05-20] MEDS ORDERED: diphenhydrAMINE 50 MG/ML 1 ML VIAL IVP STA (06:04)
[2019-05-20] MEDS ORDERED: METOCLOPRAMIDE 5 MG/ML 2 ML VIAL IVP STA (06:04)
[2019-05-20] MEDS ORDERED: MORPHINE SULFATE 4 MG/ML SYRINGE IV STA (06:04)
[2019-05-20] MEDS ORDERED: SODIUM CHLORIDE 0.9% 2,000 ML IV STA (06:04)
--- NOTE | 2019-05-20 06:13 | ED ---
Abdominal Pain HPI - General Chief Complaint: Abdominal Pain Stated Complaint: Abd Pain Time Seen by Provider: 05/20/19 06:00 Source: patient, family, RN notes reviewed Mode of arrival: wheelchair Limitations: no limitations - History of Present Illness Initial Comments: 28-year-old female presents emergency Department chief complaint right flank pain. Patient states that she developed this discomfort around 5 PM last night. She does admit to some dry heaving and pain and radiates from her right flank to right lower abdomen. Patient states she has a history kidney stones and feels exactly the same. Patient's had prior section other abdominal surgeries. Patient is currently A1 and seen Dr. Meredith. Patient denies any vaginal bleeding or vaginal discharge she does notice some urinary frequency with no dysuria no fever or chills denies any chest pain or shortness of breath. She states nothing really makes pain feel Better or worse. - Related Data Home Medications Medication Instructions Recorded Confirmed Pnv,Calcium 72/Iron/Folic Acid 1 tab PO HS 03/09/17 05/20/19 [ Plus Tablet] DULoxetine HCL [Cymbalta] 60 mg PO HS 04/18/19 05/20/19 Allergies Allergy/AdvReac Type Severity Reaction Status Date / Time amoxicillin Allergy Unknown Verified 05/20/19 06:51 Childhood gluten AdvReac Diarrhea Verified 05/20/19 06:51 Review of Systems ROS Statement: Those systems with pertinent positive or pertinent negative responses have been documented in the HPI. ROS Other: All systems not noted in ROS Statement are negative. Past Medical History Past Medical History: Asthma Additional Past Medical History / Comment(s): migraines, bronchitis, constipation alternating with diarrhea, hx kidney stones, hx kidney and bladder infections History of Any Multi-Drug Resistant Organisms: None Reported Past Surgical History: Section Past Anesthesia/Blood Transfusion Reactions: Motion Sickness Past Psychological History: Anxiety, Depression Smoking Status: Never smoker Past Alcohol Use History: None Reported Past Drug Use History: None Reported - Past Family History Mother Family Medical History: No Reported History Additional Family Medical History / Comment(s): Multiple Sclerosis General Exam Limitations: no limitations General appearance: alert, in no apparent distress Head exam: Present: atraumatic, normocephalic, normal inspection Eye exam: Present: normal appearance, PERRL, EOMI. Absent: scleral icterus, conjunctival injection, periorbital swelling ENT exam: Present: normal exam, mucous membranes moist Neck exam: Present: normal inspection, full ROM. Absent: tenderness, meningismus, lymphadenopathy Respiratory exam: Present: normal lung sounds bilaterally. Absent: respiratory distress, wheezes, rales, rhonchi, stridor Cardiovascular Exam: Present: regular rate, normal rhythm, normal heart sounds. Absent: systolic murmur, diastolic murmur, rubs, gallop, clicks GI/Abdominal exam: Present: soft, tenderness (Mild right-sided right flank), normal bowel sounds. Absent: distended, guarding, rebound, rigid Back exam: Present: CVA tenderness (R). Absent: CVA tenderness (L) Neurological exam: Present: alert Skin exam: Present: warm, dry, intact, normal color. Absent: rash Course Vital Signs 05/20/19 05:45 Temperature 97.6 F Pulse Rate 97 Respiratory 24 Rate Blood Pressure 125/62 O2 Sat by Pulse 99 Oximetry - Reevaluation(s) Reevaluation #1: 05/20/19 07:14 Patient requested pain meds more than oral Tylenol she states that she understands the risk of taking anything minutes regarding . Patient states that she will accept this risk. Medical Decision Making - Medical Decision Making 28-year-old female presented for flank pain. Patient's pain is intractable patient was given pain medication. We did discuss the case with urology who advises to admit the patient keep patient nothing by mouth and they'll discuss options for treatment. Patient is requesting second dose of IV pain. - Lab Data Result diagrams: 05/20/19 06:30 05/20/19 06:30 Lab Results 05/20/19 05/20/19 05/20/19 Range/Units 06:30 06:30 07:05 WBC 10.3 (3.8-10.6) k/uL RBC 4.47 (3.80-5.40) m/uL Hgb 12.9 (11.4-16.0) gm/dL Hct 37.6 (34.0-46.0) % MCV 84.0 (80.0-100.0) fL MCH 28.8 (25.0-35.0) pg MCHC 34.3 (31.0-37.0) g/dL RDW 13.6 (11.5-15.5) % Plt Count 243 (150-450) k/uL Neutrophils % 74 % Lymphocytes % 18 % Monocytes % 5 % Eosinophils % 2 % Basophils % 0 % Neutrophils # 7.7 (1.3-7.7) k/uL Lymphocytes # 1.8 (1.0-4.8) k/uL Monocytes # 0.5 (0-1.0) k/uL Eosinophils # 0.2 (0-0.7) k/uL Basophils # 0.0 (0-0.2) k/uL Sodium 137 (137-145) mmol/L Potassium 4.2 (3.5-5.1) mmol/L Chloride 105 (98-107) mmol/L Carbon Dioxide 21 L (22-30) mmol/L Anion Gap 11 mmol/L BUN 12 (7-17) mg/dL Creatinine 0.68 (0.52-1.04) mg/dL Est GFR (CKD-EPI)AfAm >90 (>60 ml/min/1.73 sqM) Est GFR (CKD-EPI)NonAf >90 (>60 ml/min/1.73 sqM) Glucose 97 (74-99) mg/dL Calcium 8.9 (8.4-10.2) mg/dL Total Bilirubin 0.4 (0.2-1.3) mg/dL AST 16 (14-36) U/L ALT 23 (9-52) U/L Alkaline Phosphatase 50 (38-126) U/L Total Protein 6.5 (6.3-8.2) g/dL Albumin 3.8 (3.5-5.0) g/dL Lipase 44 (23-300) U/L Urine Color Yellow Urine Appearance Clear (Clear) Urine pH 7.0 (5.0-8.0) Ur Specific [place] 1.021 (1.001-1.035) Urine Protein Trace H (Negative) Urine Glucose (UA) Negative (Negative) Urine Ketones Negative (Negative) Urine Blood Moderate H (Negative) Urine Nitrite Negative (Negative) Urine Bilirubin Negative (Negative) Urine Urobilinogen <2.0 (<2.0) mg/dL Ur Leukocyte Esterase Small H (Negative) Urine RBC 151 H (0-5) /hpf Urine WBC 9 H (0-5) /hpf Ur Squamous Epith Cells 4 (0-4) /hpf Urine Bacteria Rare H (None) /hpf Urine Mucus Few H (None) /hpf Disposition Clinical Impression: Intractable abdominal pain, Kidney stone Disposition: ADMITTED IP TO THIS HOSP Condition: Stable Is patient prescribed a controlled substance at d/c from ED?: No Referrals: Blaze Escobar MD [Primary Care Provider] - 1-2 days Time of Disposition: 09:31
[2019-05-20 06:42] LABS: Basophils % (A) 0 %; Eosinophils # (A) 0.2 k/uL (0-0.7); Eosinophils % (A) 2 %; HCT 37.6 % (34.0-46.0); HGB 12.9 gm/dL (11.4-16.0); Lymphocytes # (A) 1.8 k/uL (1.0-4.8); Lymphocytes % (A) 18 %; MCH 28.8 pg (25.0-35.0); MCHC 34.3 g/dL (31.0-37.0); Mean Platelet Volume 6.8; Monocytes # (A) 0.5 k/uL (0-1.0); Monocytes % (A) 5 %; Neutrophils # (A) 7.7 k/uL (1.3-7.7); Neutrophils % (A) 74 %; Platelet Count 243 k/uL (150-450); RBC 4.47 m/uL (3.80-5.40); RDW 13.6 % (11.5-15.5); WBC 10.3 k/uL (3.8-10.6)
[2019-05-20 06:52] LABS: ALT 23 U/L (9-52); AST 16 U/L (14-36); African American GFR (CKD) >90 (>60 ml/min/1.73 sqM); Albumin 3.8 g/dL (3.5-5.0); Alkaline Phosphatase 50 U/L (38-126); Anion Gap 11 mmol/L; Blood Urea Nitrogen 12 mg/dL (7-17); Calcium 8.9 mg/dL (8.4-10.2); Carbon Dioxide 21 mmol/L (22-30); Chloride 105 mmol/L (98-107); Glucose 97 mg/dL (74-99); Potassium 4.2 mmol/L (3.5-5.1); Sodium 137 mmol/L (137-145); Total Bilirubin 0.4 mg/dL (0.2-1.3); Total Protein 6.5 g/dL (6.3-8.2)
[2019-05-20 07:27] LABS: Appearance,Urine Clear (Clear); Bacteria,Urine Rare /hpf; Bilirubin,Urine Negative (Negative); Blood,Urine Moderate (Negative); Color,Urine Yellow; Glucose,Urine (UA) Negative (Negative); Ketones,Urine Negative (Negative); Leukocyte Esterase,Urine Small (Negative); Mucus,Urine Few /hpf; Nitrite,Urine Negative (Negative); Protein,Urine Trace (Negative); RBC,Urine 151 /hpf (0-5); Specific Gravity,Urine 1.021 (1.001-1.035); Squamous Epithelial Cell,Urine 4 /hpf (0-4); Urobilinogen,Urine <2.0 mg/dL (<2.0)
--- NOTE | 2019-05-20 08:12 | US ---
EXAMINATION TYPE: US renals and bladder DATE OF EXAM: 05/20/2019 COMPARISON: 04/18/2019 CLINICAL HISTORY: Pain. early with right flank pain and gross hematuria, h/o renal stone EXAM MEASUREMENTS: Right Kidney: 12.9 x 7.5 x 6.6cm Left Kidney: 10.7 x 5.1 x 5.6cm Right Kidney: Increased now severe hydronephrosis seen. Previously seen nonobstructing calculi are le ss well visualized on today's exam. Left Kidney: multiple stones seen, largest 2 are 1.3cm and 1.4cm Bladder: voided prior to exam There is no evidence for left-sided hydronephrosis at this point in time. No No masses are identifie d. The urinary bladder is nondistended. IMPRESSION: Increasing now severe right hydronephrosis and redemonstration of multiple nonobstructing left renal calculi. Additional nonobstructing right renal calculi are suspected but not clearly measured.
[2019-05-20] MEDS ORDERED: NALOXONE 0.4 MG/ML 1 ML VIAL IV PRN (09:32)
[2019-05-20] MEDS ORDERED: MORPHINE SULFATE 4 MG/ML SYRINGE IVP STA (09:33)
[2019-05-20] MEDS ORDERED: ACETAMINOPHEN TAB 325 MG TAB PO PRN (12:01)
[2019-05-20 12:10] VITALS: BMI 35.2
[2019-05-20] MEDS: MORPHINE SULFATE 2 MG/ML SYRINGE IV PRN ×6 (12:19→23:50)
[2019-05-20] MEDS: SODIUM CHLORIDE 0.9% 1,000 ML IV SCH ×2 (12:40→18:42)
--- NOTE | 2019-05-20 12:42 | P.GSHP ---
History of Present Illness H&P Date: 05/20/19 Chief Complaint: right renal calculi Ms. Kingston is 28 yo female that is admitted to the hospital with right sided flank pain. She is 9 weeks , she presented to the ED 4 weeks ago with right flank pain. Today she underwent a RBUS which showed sever right sided hydronephrosis. She denies any hematuria, dysuria, fever/chills. has been complaining of nausea w/o vomiting. She has hx of recurrent stones, that she has passed spontaneously. Denies any previous urological surgeries or any hx of recurrent UTI. At this time she still complains of pain which has improved since admission. - Constitutional Constitutional: Reports poor appetite, Denies chills, Denies fever - EENT Ears, nose, mouth and throat: Denies dysphagia, Denies headache - Cardiovascular Cardiovascular: Denies chest pain, Denies shortness of breath - Genitourinary (Female) Genitourinary: Reports flank pain, Reports kidney stones, Denies hematuria - Neurological Neurological: Denies confusion, Denies weakness Past Medical History Past Medical History: Asthma Additional Past Medical History / Comment(s): migraines, bronchitis, cons tipation alternating with diarrhea, hx kidney stones, hx kidney and bladder infections History of Any Multi-Drug Resistant Organisms: None Reported Past Surgical History: Section Past Anesthesia/Blood Transfusion Reactions: Motion Sickness Past Psychological History: Anxiety, Depression Smoking Status: Never smoker Past Alcohol Use History: None Reported Past Drug Use History: None Reported - Past Family History Mother Family Medical History: No Reported History Additional Family Medical History / Comment(s): Multiple Sclerosis Medications and Allergies Home Medications Medication Instructions Recorded Confirmed Type Pnv,Calcium 72/Iron/Folic Acid 1 tab PO HS 03/09/17 05/20/19 History [ Plus Tablet] DULoxetine HCL [Cymbalta] 60 mg PO HS 04/18/19 05/20/19 History Allergies Allergy/AdvReac Type Severity Reaction Status Date / Time amoxicillin Allergy Unknown Verified 05/20/19 06:51 Childhood gluten AdvReac Diarrhea Verified 05/20/19 06:51 Surgical - Exam Vital Signs Temp Pulse Resp BP Pulse Ox 97.6 F 97 24 125/62 99 05/20/19 05:45 05/20/19 05:45 05/20/19 05:45 05/20/19 05:45 05/20/19 05:45 - General well developed, well nourished, moderate pain - Eyes normal ocular movement absent: erythema - ENT normal nares, no hearing loss - Respiratory normal expansion, normal respiratory effort - Abdomen Abdomen: soft, tender (right flank ) - Neurologic normal coordination, normal sensation - Musculoskeletal normal gait, normal posture - Psychiatric oriented to time, oriented to person, oriented to place, speech is normal Results - Labs 05/20/19 06:30 05/20/19 06:30 Abnormal Lab Results - Last 24 Hours (Table) 05/20/19 05/20/19 Range/Units 06:30 07:05 Carbon Dioxide 21 L (22-30) mmol/L Urine Protein Trace H (Negative) Urine Blood Moderate H (Negative) Ur Leukocyte Esterase Small H (Negative) Urine RBC 151 H (0-5) /hpf Urine WBC 9 H (0-5) /hpf Urine Bacteria Rare H (None) /hpf Urine Mucus Few H (None) /hpf Diabetes panel 05/20/19 Range/Units 06:30 Sodium 137 (137-145) mmol/L Potassium 4.2 (3.5-5.1) mmol/L Chloride 105 (98-107) mmol/L Carbon Dioxide 21 L (22-30) mmol/L BUN 12 (7-17) mg/dL Creatinine 0.68 (0.52-1.04) mg/dL Glucose 97 (74-99) mg/dL Calcium 8.9 (8.4-10.2) mg/dL AST 16 (14-36) U/L ALT 23 (9-52) U/L Alkaline Phosphatase 50 (38-126) U/L Total Protein 6.5 (6.3-8.2) g/dL Albumin 3.8 (3.5-5.0) g/dL Calcium panel 05/20/19 Range/Units 06:30 Calcium 8.9 (8.4-10.2) mg/dL Albumin 3.8 (3.5-5.0) g/dL Pituitary panel 05/20/19 Range/Units 06:30 Sodium 137 (137-145) mmol/L Potassium 4.2 (3.5-5.1) mmol/L Chloride 105 (98-107) mmol/L Carbon Dioxide 21 L (22-30) mmol/L BUN 12 (7-17) mg/dL Creatinine 0.68 (0.52-1.04) mg/dL Glucose 97 (74-99) mg/dL Calcium 8.9 (8.4-10.2) mg/dL Adrenal panel 05/20/19 Range/Units 06:30 Sodium 137 (137-145) mmol/L Potassium 4.2 (3.5-5.1) mmol/L Chloride 105 (98-107) mmol/L Carbon Dioxide 21 L (22-30) mmol/L BUN 12 (7-17) mg/dL Creatinine 0.68 (0.52-1.04) mg/dL Glucose 97 (74-99) mg/dL Calcium 8.9 (8.4-10.2) mg/dL Total Bilirubin 0.4 (0.2-1.3) mg/dL AST 16 (14-36) U/L ALT 23 (9-52) U/L Alkaline Phosphatase 50 (38-126) U/L Total Protein 6.5 (6.3-8.2) g/dL Albumin 3.8 (3.5-5.0) g/dL - Imaging US - kidney/bladder: report reviewed (severe hydro on the right), image reviewed Assessment and Plan Assessment: 28 yo female with right sided flank pain, RBUS demonstrated right sided hydronephrosis. Hx of recurrent renal calculi. We discussed the finding of RBUS with her. This is her second presentation with right flank pain. We discussed with her given her intractable pain and recurrent ED presentation we need to c onsider surgical intervention. We discussed with her given her she is at increased risk to her and her fetus. We discussed potential miscarriage and deformities. We also discussed the risk of anesthesia. We discussed with her the risk is decreased if we perform any type of intervention in the second trimester rather than first trimester. At this time she would like to hold off on any surgical intervention and would like to continue medical expulsive therapy. Plan: -Will keep overnight -Urine culture -Pain control -NPO past MN -Will reassess in am
[2019-05-20] MEDS ORDERED: DULoxetine HCL 60 MG CAPSULE.DR PO SCH (21:00)
[2019-05-20] MEDS ORDERED: PRENATAL VIT-IRON-FOLIC ACID 1 EACH CAP PO SCH (21:00)
[2019-05-21] MEDS: SODIUM CHLORIDE 0.9% 1,000 ML IV SCH ×2 (00:59→07:00)
[2019-05-21] MEDS ORDERED: MORPHINE SULFATE 2 MG/ML SYRINGE ONE (04:03)
[2019-05-21] MEDS: MORPHINE SULFATE 2 MG/ML SYRINGE IV PRN (07:19)
[2019-05-21] MEDS: HYDROcodone/APAP 5-325MG 1 EACH TAB PO PRN ×2 (08:12→12:53)
[2019-05-21 09:56] VITALS: RESP 20
--- NOTE | 2019-05-21 10:09 | P.PN ---
Subjective Progress Note Date: 05/21/19 Principal diagnosis: right sided hydronephrosis No acute overnight event, pain is better controlled this am. Denies any N/V, tolerating diet. Has not seen the stone pass. Denies any hematuria or dysuria Objective - Vital Signs Vital signs: Vital Signs Temp 98.0 F 05/21/19 08:16 Pulse 71 05/21/19 08:16 Resp 20 05/21/19 08:16 BP 113/71 05/21/19 08:16 Pulse Ox 97 05/21/19 08:16 Intake & Output 05/20/19 05/21/19 05/21/19 18:59 06:59 18:59 Output Total 350 950 400 Balance -350 -950 -400 Weight 93.1 kg Output: Urine 350 950 400 Other: Voiding Method Toilet Toilet Toilet # Voids 1 1 1 - Constitutional General appearance: Present: cooperative, no acute distress - EENT Eyes: Present: normal appearance. Absent: ptosis - Neck Neck: Present: normal ROM. Absent: rigidity - Gastrointestinal General gastrointestinal: Absent: distended, rigid - Musculoskeletal Musculoskeletal: Present: gait normal. Absent: generalized weakness - Labs CBC & Chem 7: 05/20/19 06:30 05/20/19 06:30 Labs: Microbiology - Last 24 Hours (Table) 05/20/19 07:05 Urine Culture - Preliminary Urine,Voided Assessment and Plan Assessment: 28 yo female with right sided flank pain, RBUS demonstrated right sided hydronephrosis. Hx of recurrent renal calculi. We discussed the finding of RBUS with her. This is her second presentation with right flank pain. We discussed with her given her intractable pain and recurrent ED presentation we need to consider surgical intervention. We discussed with her given her she is at increased risk to her and her fetus. We discussed potential miscarriage and deformities. We also discussed the risk of anesthesia. We discussed with her the risk is decreased if we perform any type of intervention in the second trimester rather than first trimester. At this time she would like to hold off on any surgical intervention and would like to continue medical expulsive therapy. Pain better controlled this am (1) Hydronephrosis Current Visit: Yes Status: Acute Code(s): N13.30 - UNSPECIFIED HYDRONEPHROSIS SNOMED Code(s): 13708055 Plan: --Will switch to po pain meds -Regular diet -Discharge home today -F/U in clinic in 2 weeks
--- NOTE | 2019-05-21 10:17 | P.DS ---
Providers Date of admission: 05/20/19 09:52 Expected date of discharge: 05/21/19 Attending physician: Herminio Grimes MD Consults: Herminio Grimes MD Primary care physician: Blaze Escobar - Discharge Diagnosis(es) (1) Hydronephrosis Current Visit: Yes Status: Acute Hospital Course: 28 yo female 9 week admitted for right sided hydronephrosis. Patient was requiring IV pain medication on admission. Pain was better controlled on 05/21, patient was discharged home she will f/u in 2 weeks to discuss definitive stone managments Patient Condition at Discharge: Stable Plan - Discharge Summary Discharge Rx Participant: Yes New Discharge Prescriptions: New Hydrocodone/Acetaminophen [[place] 5-325] 1 each PO Q4HR PRN #20 tab PRN Reason: Pain No Action Pnv,Calcium 72/Iron/Folic Acid [ Plus Tablet] 1 tab PO HS DULoxetine HCL [Cymbalta] 60 mg PO HS Discharge Medication List Pnv,Calcium 72/Iron/Folic Acid [ Plus Tablet] 1 tab PO HS 03/09/17 [History] DULoxetine HCL [Cymbalta] 60 mg PO HS 04/18/19 [History] Hydrocodone/Acetaminophen [[place] 5-325] 1 each PO Q4HR PRN #20 tab 05/21/19 [Rx] Follow up Appointment(s)/Referral(s): Blaze Escobar MD [Primary Care Provider] - 05/22/19 9:00 am Herminio Grimes MD [STAFF PHYSICIAN] - 2 Weeks Discharge Disposition: HOME SELF-CARE
[2019-05-21 13:00] VITALS: BP 117/76; PULSE 84; TEMP 97.8
== END 2019-05-21 14:33 | disposition home or self-care (01) ==
LOC: EC 05:43 → UNDOADMIN 09:52 → 6PED 09:52 → INTOOBSV 09:52 → 6PED 10:54 → UNDODISIN 05-21 14:33
PROVIDERS: ADMIT Urology; ATTEND Urology
DX: O26.831 Pregnancy related renal disease, first trimester (principal); N13.2 Hydronephrosis with renal and ureteral calculous obstruction; O99.511 Diseases of the respiratory system complicating pregnancy, first trimester; J45.909 Unspecified asthma, uncomplicated; O99.341 Other mental disorders complicating pregnancy, first trimester; F32.9 Major depressive disorder, single episode, unspecified; F41.9 Anxiety disorder, unspecified; O26.891 Other specified pregnancy related conditions, first trimester; G43.909 Migraine, unspecified, not intractable, without status migrainosus; Z3A.09 9 weeks gestation of pregnancy; Z79.899 Other long term (current) drug therapy; Z88.0 Allergy status to penicillin; Z91.02 Food additives allergy status; Z87.19 Personal history of other diseases of the digestive system; Z87.09 Personal history of other diseases of the respiratory system; Z87.440 Personal history of urinary (tract) infections; Z87.442 Personal history of urinary calculi; Z82.0 Family history of epilepsy and other diseases of the nervous system
CPT/HCPCS: 96376 ×3; 96361; 96374; 96375; 99285; 36415; 80053; 83690; 85025; 81001; 87086; 76770; G0378 ×2; J2270 ×3; J1200; J2765; S0197

== ENCOUNTER 2019-06-19 03:31 | Emergency (ER) | payer OTHER ==
[2019-06-19 03:39] VITALS: TEMP 97.7
--- NOTE | 2019-06-19 03:46 | ED ---
Lower Extremity Injury HPI - General Chief Complaint: Extremity Injury, Lower Stated Complaint: Rt Foot injury Time Seen by Provider: 06/19/19 03:39 Source: patient, family Mode of arrival: wheelchair Limitations: no limitations - History of Present Illness Initial Comments: 28-year-old female patient presented to the emergency department today for evalu ation of right ankle and foot pain. Patient states around 9 PM she tripped over a cat twisting the ankle. Patient states the area has become swollen. States it is very painful. States she did take a Tylenol with Codeine which did help minimally with the pain. States icing to make it worse. She denies any numbness or tingling to the foot. She does report shooting pains down the foot and up the leg however reports no knee pain. Denies hitting her head or losing consciousness. Denies any other injuries. Patient is , denies any abdominal pain, vaginal bleeding, or vaginal discharge. Patient denies any headache, neck pain, back pain, chest pain, shortness of breath, dizziness, weakness, abdominal pain, nausea, vomiting, or difficulties with bowel movements or urination. - Related Data Home Medications Medication Instructions Recorded Confirmed Pnv,Calcium 72/Iron/Folic Acid 1 tab PO HS 03/09/17 05/20/19 [ Plus Tablet] DULoxetine HCL [Cymbalta] 60 mg PO HS 04/18/19 05/20/19 Previous Rx's Medication Instructions Recorded Hydrocodone/Acetaminophen [[place] 1 each PO Q4HR PRN #20 tab 05/21/19 5-325] Allergies Allergy/AdvReac Type Severity Reaction Status Date / Time amoxicillin Allergy Unknown Verified 06/19/19 03:39 Childhood gluten AdvReac Diarrhea Verified 06/19/19 03:39 Review of Systems ROS Statement: Those systems with pertinent positive or pertinent negative responses have been documented in the HPI. ROS Other: All systems not noted in ROS Statement are negative. Past Medical History Past Medical History: Asthma Additional Past Medical History / Comment(s): migraines, bronchitis, constipation alternating with diarrhea, hx kidney stones, hx kidney and bladder infections History of Any Multi-Drug Resistant Organisms: None Reported Past Surgical History: Section Past Anesthesia/Blood Transfusion Reactions: Motion Sickness Past Psychological History: Anxiety, Depression Smoking Status: Never smoker Past Alcohol Use History: None Reported Past Drug Use History: None Reported - Past Family History Mother Family Medical History: No Reported History Additional Family Medical History / Comment(s): Multiple Sclerosis General Exam Limitations: no limitations General appearance: alert, in no apparent distress, other (This is a well- developed, well-nourished adult female patient in no acute distress. Vital signs upon presentation are temperature 97.7F, pulse 96, respirations 20, blood pressure 133/79, pulse ox 100% on room air.) Eye exam: Present: normal appearance, PERRL, EOMI. Absent: scleral icterus, conjunctival injection, periorbital swelling ENT exam: Present: normal exam, normal oropharynx, mucous membranes moist Respiratory exam: Present: normal lung sounds bilaterally. Absent: respiratory distress, wheezes, rales, rhonchi, stridor Cardiovascular Exam: Present: regular rate, normal rhythm, normal heart sounds. Absent: systolic murmur, diastolic murmur, rubs, gallop, clicks Extremities exam: Present: full ROM, normal capillary refill, other (There is soft tissue swelling surrounding the right lateral malleolus. Tenderness over the dorsal aspect of the foot. Skin is pink, warm, dry. Cap refills less than 3 seconds. Pedal pulses 2+ and equal bilaterally. There is no proximal tib-fib tenderness.). Absent: normal inspection, tenderness, pedal edema, joint swelling, calf tenderness Neurological exam: Present: alert, oriented X3, CN II-XII intact Psychiatric exam: Present: normal affect, normal mood Skin exam: Present: warm, dry, intact, normal color. Absent: rash Course Vital Signs 06/19/19 03:35 Temperature 97.7 F Pulse Rate 96 Respiratory 20 Rate Blood Pressure 133/79 O2 Sat by Pulse 100 Oximetry Medical Decision Making - Medical Decision Making 28-year-old female patient presented to the emergency department today for evaluation of right foot and ankle pain. Patient tripped over a cat and twisted the ankle. Patient is reporting pain over the right foot and right lateral ankle. Physical examination did reveal soft tissue swelling surrounding the right lateral malleolus. Neurovascular status intact. Pulses intact. X-rays reviewed and did reveal widening of the ankle joint consistent with possible ligamentous tear. There is a nondisplaced right fifth metatarsal fracture. Patient is placed in a posterior OCL splint. Neurovascular status intact after splint application. She is instructed to remain nonweightbearing to the leg. Patient will be discharged home to follow-up with fire prevention specialist for further evaluation as soon as possible. Return parameters were discussed in detail. They verbalize understanding and agree with this plan. - Radiology Data Radiology results: report reviewed, image reviewed 3 views of the right ankle are obtained. Report reviewed in its entirety. Impression by Dr. Dick shows lateral soft tissue swelling. Fifth metatarsal nondisplaced fracture. Slight widening of the lateral ankle joint space could relate to ligamentous tear. 3 views of the right foot are obtained. Report was reviewed in its entirety. Impression by Dr. Dick shows acute fifth metatarsal fracture. Disposition Clinical Impression: Right ankle sprain, Nondisplaced fracture of fifth right metatarsal bone Disposition: HOME SELF-CARE Condition: Good Instructions (If sedation given, give patient instructions): Ankle Sprain (ED), Foot Fracture in Adults (ED) Additional Instructions: Remain non-weightbearing to the right foot. Keep splint in place until follow up with orthopedics. Follow up with fire prevention specialist for recheck as soon as possible. Rest, ice, and elevate the foot and ankle as much as possible. Return to the emergency department for any new, worsening, or concerning symptoms. Is patient prescribed a controlled substance at d/c from ED?: No Referrals: Blaze Escobar MD [Primary Care Provider] - 1-2 days Deo Arellano MD [Medical Doctor] - 1-2 days Wander Oakley MD [STAFF PHYSICIAN] - 1-2 days Time of Disposition: 04:10
--- NOTE | 2019-06-19 04:03 | XR ---
Right ankle 3 views. History pain. Comparison none. FINDINGS: There is nondisplaced transverse fracture across the base of the fifth metatarsal. There is slight wi dening of the lateral joint space of the ankle.. There is lateral soft tissue swelling. IMPRESSION: Lateral soft tissue swelling. Fifth metatarsal nondisplaced fracture. Slight widening of the lateral ankle joint space could relate to ligamentous tear.
--- NOTE | 2019-06-19 04:04 | XR ---
EXAMINATION TYPE: XR foot complete RT DATE OF EXAM: 06/19/2019 COMPARISON: NONE HISTORY: Foot pain TECHNIQUE: 3 views FINDINGS: There is acute nondisplaced transverse fracture across the base of the fifth metatarsal. Th e joint spaces are normal. IMPRESSION: Acute fifth metatarsal fracture.
[2019-06-19 04:44] VITALS: BP 129/72; PULSE 72; RESP 18
== END 2019-06-19 04:35 | disposition home or self-care (01) ==
LOC: EC 03:31
DX: O9A.212 Injury, poisoning and certain other consequences of external causes complicating pregnancy, second trimester (principal); S92.354A Nondisplaced fracture of fifth metatarsal bone, right foot, initial encounter for closed fracture; S93.401A Sprain of unspecified ligament of right ankle, initial encounter; O99.342 Other mental disorders complicating pregnancy, second trimester; F32.9 Major depressive disorder, single episode, unspecified; F41.9 Anxiety disorder, unspecified; Z88.0 Allergy status to penicillin; Z91.018 Allergy to other foods; Z79.899 Other long term (current) drug therapy; Z3A.14 14 weeks gestation of pregnancy; Z98.890 Other specified postprocedural states; W18.49XA Other slipping, tripping and stumbling without falling, initial encounter; Y92.009 Unspecified place in unspecified non-institutional (private) residence as the place of occurrence of the external cause
CPT/HCPCS: 29515; 99283

== ENCOUNTER 2019-08-01 17:23 | Inpatient (IN) | payer OTHER ==
[2019-08-01] MEDS ORDERED: MORPHINE SULFATE 2 MG/ML SYRINGE IVP ONE ×2 (18:05→19:46)
[2019-08-01] MEDS ORDERED: SODIUM CHLORIDE 0.9% 1,000 ML IV STA (18:05)
[2019-08-01] MEDS ORDERED: METOCLOPRAMIDE 5 MG/ML 2 ML VIAL IVP STA (18:05)
--- NOTE | 2019-08-01 18:32 | ED ---
Abdominal Pain HPI - General Chief Complaint: Abdominal Pain Stated Complaint: ABDOMINAL PAIN, POSS KIDNEY STONE, 20 WEEKS PREG Time Seen by Provider: 08/01/19 17:49 Source: patient Mode of arrival: ambulatory Limitations: no limitations - History of Present Illness Initial Comments: Patient is a 28-year-old female presenting to the emergency department with with complaints of an acute onset of right flank pain that started early this morning. Patient states she has a history of kidney stones and this feels similar nature. Patient is currently 20 weeks . Patient is . 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 Meredith. has been uncomplicated thus far. Patient denies any lower abdominal pain or vaginal bleeding. Patient states she is also been nauseous and vomiting since the onset of the pain. She describes the pain as sharp in nature and consistent with radiation into the right side of abdomen. Patient denies fever, chills, burning with urination. Patient has no other complaints at this time. Upon arrival to the ER, vital signs are stable, afebrile. - Related Data Home Medications Medication Instructions Recorded Confirmed Pnv,Calcium 72/Iron/Folic Acid 1 tab PO HS 03/09/17 08/01/19 [ Plus Tablet] DULoxetine HCL [Cymbalta] 60 mg PO HS 04/18/19 08/01/19 Acetaminophen-Codeine 300-30mg 1 tab PO Q4-6H PRN 08/01/19 08/01/19 [Tylenol w/codeine #3] Loratadine [Claritin] 10 mg PO HS 08/01/19 08/01/19 Allergies Allergy/AdvReac Type Severity Reaction Status Date / Time amoxicillin Allergy Unknown Verified 08/01/19 20:28 Childhood gluten AdvReac Diarrhea Verified 08/01/19 20:28 Review of Systems ROS Statement: Those systems with pertinent positive or pertinent negative responses have been documented in the HPI. ROS Other: All systems not noted in ROS Statement are negative. Past Medical History Past Medical History: Asthma Additional Past Medical History / Comment(s): migraines, bronchitis, constipation alternating with diarrhea, hx kidney stones, hx kidney and bladder infections History of Any Multi-Drug Resistant Organisms: None Reported Past Surgical History: Section Past Anesthesia/Blood Transfusion Reactions: Motion Sickness Past Psychological History: Anxiety, Depression Smoking Status: Never smoker Past Alcohol Use History: None Reported Past Drug Use History: None Reported - Past Family History Mother Family Medical History: No Reported History Additional Family Medical History / Comment(s): Multiple Sclerosis General Exam - General Exam Comments Initial Comments: GENERAL: Patient is pacing around the room holding right side, in mild distress secondary to pain.. HEAD: Atraumatic, normocephalic. EYES: Pupils equal round and reactive to light, extraocular movements intact, sclera anicteric, conjunctiva are normal. ENT: Moist mucous membranes. NECK: Normal range of motion, supple without lymphadenopathy or JVD. LUNGS: Breath sounds clear to auscultation bilaterally and equal. No wheezes rales or rhonchi. HEART: Regular rate and rhythm without murmurs, rubs or gallops. ABDOMEN: Tender to palpation of the right flank as well as right side abdomen. No lower abdominal tenderness. Soft, normoactive bowel sounds. No guarding, no rebound. No masses appreciated. : Deferred EXTREMITIES: Normal range of motion, no pitting or edema. No clubbing or cyanosis. NEUROLOGICAL: Cranial nerves II through XII grossly intact. Normal speech, normal gait. PSYCH: Normal mood, normal affect. SKIN: Warm, Dry, normal turgor, no rashes or lesions noted. Limitations: no limitations Course Vital Signs 08/01/19 08/01/19 17:38 20:25 Temperature 97.4 F L Pulse Rate 87 77 Respiratory 22 18 Rate Blood Pressure 129/82 144/77 O2 Sat by Pulse 99 97 Oximetry Medical Decision Making - Medical Decision Making Patient is a 28-year-old female presenting with acute onset right flank pain started this morning. Patient has history of kidney stones. Patient is currently 20 weeks . [employer] PROGRAMMER ANALYST is Dr. Meredith, has been uncomplicated thus far. Patient's vital signs are stable. Patient denies lower abdominal pain or vaginal bleeding. Labs reveal slightly leukocytosis at 12.3, likely reactive. CMP is normal. UA shows 1+ ketones. Renal ultrasound shows moderate to severe right hydronephrosis, multiple nonobstructing left renal calculi, 0.7 cm calculus in the right lower pole of the kidney. Right ureteral jet is not visualized. Obstructive uropathy on the right is possible. Patient was given antinausea and pain medication as well as fluids with only minimal improvement in pain. Case discussed with Dr. Turner. Patient will be admitted under Dr. Wheeler and will consult urology, Dr. Edge. Patient is agreement with this plan of care. - Lab Data Result diagrams: 08/01/19 18:30 08/01/19 18:30 Lab Results 08/01/19 08/01/19 08/01/19 Range/Units 18:30 18:30 18:30 WBC 12.3 H (3.8-10.6) k/uL RBC 4.62 (3.80-5.40) m/uL Hgb 13.2 (11.4-16.0) gm/dL Hct 39.5 (34.0-46.0) % MCV 85.5 (80.0-100.0) fL MCH 28.6 (25.0-35.0) pg MCHC 33.4 (31.0-37.0) g/dL RDW 12.7 (11.5-15.5) % Plt Count 268 (150-450) k/uL Neutrophils % 83 % Lymphocytes % 11 % Monocytes % 4 % Eosinophils % 1 % Basophils % 0 % Neutrophils # 10.2 H (1.3-7.7) k/uL Lymphocytes # 1.4 (1.0-4.8) k/uL Monocytes # 0.5 (0-1.0) k/uL Eosinophils # 0.1 (0-0.7) k/uL Basophils # 0.0 (0-0.2) k/uL Sodium 137 (137-145) mmol/L Potassium 4.1 (3.5-5.1) mmol/L Chloride 106 (98-107) mmol/L Carbon Dioxide 20 L (22-30) mmol/L Anion Gap 11 mmol/L BUN 8 (7-17) mg/dL Creatinine 0.63 (0.52-1.04) mg/dL Est GFR (CKD-EPI)AfAm >90 (>60 ml/min/1.73 sqM) Est GFR (CKD-EPI)NonAf >90 (>60 ml/min/1.73 sqM) Glucose 94 (74-99) mg/dL Calcium 9.3 (8.4-10.2) mg/dL Total Bilirubin 0.4 (0.2-1.3) mg/dL AST 25 (14-36) U/L ALT 26 (9-52) U/L Alkaline Phosphatase 61 (38-126) U/L Total Protein 7.0 (6.3-8.2) g/dL Albumin 4.0 (3.5-5.0) g/dL Urine Color Yellow Urine Appearance Clear (Clear) Urine pH 8.5 H (5.0-8.0) Ur Specific [place] 1.019 (1.001-1.035) Urine Protein Trace H (Negative) Urine Glucose (UA) Negative (Negative) Urine Ketones 1+ H (Negative) Urine Blood Negative (Negative) Urine Nitrite Negative (Negative) Urine Bilirubin Negative (Negative) Urine Urobilinogen <2.0 (<2.0) mg/dL Ur Leukocyte Esterase Negative (Negative) Disposition Clinical Impression: Hydronephrosis, Intractable abdominal pain, 20 weeks gestation of Disposition: ADMITTED IP TO THIS [facility] Condition: Stable Is patient prescribed a controlled substance at d/c from ED?: No Referrals: Blaze Escobar MD [Primary Care Provider] - 1-2 days Decision Date: 08/01/19 Decision Time: 20:32
[2019-08-01 18:42] LABS: Basophils % (A) 0 %; Eosinophils # (A) 0.1 k/uL (0-0.7); Eosinophils % (A) 1 %; HCT 39.5 % (34.0-46.0); HGB 13.2 gm/dL (11.4-16.0); Lymphocytes # (A) 1.4 k/uL (1.0-4.8); Lymphocytes % (A) 11 %; MCH 28.6 pg (25.0-35.0); MCHC 33.4 g/dL (31.0-37.0); MCV 85.5 fL (80.0-100.0); Mean Platelet Volume 6.3; Monocytes # (A) 0.5 k/uL (0-1.0); Monocytes % (A) 4 %; Neutrophils # (A) 10.2 k/uL (1.3-7.7); Neutrophils % (A) 83 %; Platelet Count 268 k/uL (150-450); RBC 4.62 m/uL (3.80-5.40); RDW 12.7 % (11.5-15.5); WBC 12.3 k/uL (3.8-10.6)
[2019-08-01 18:43] LABS: Appearance,Urine Clear (Clear); Bilirubin,Urine Negative (Negative); Blood,Urine Negative (Negative); Color,Urine Yellow; Glucose,Urine (UA) Negative (Negative); Ketones,Urine 1+ (Negative); Leukocyte Esterase,Urine Negative (Negative); Nitrite,Urine Negative (Negative); PH, Urine 8.5 (5.0-8.0); Protein,Urine Trace (Negative); Specific Gravity,Urine 1.019 (1.001-1.035); Urobilinogen,Urine <2.0 mg/dL (<2.0)
[2019-08-01 18:48] LABS: ALT 26 U/L (9-52); AST 25 U/L (14-36); African American GFR (CKD) >90 (>60 ml/min/1.73 sqM); Alkaline Phosphatase 61 U/L (38-126); Anion Gap 11 mmol/L; Blood Urea Nitrogen 8 mg/dL (7-17); Calcium 9.3 mg/dL (8.4-10.2); Carbon Dioxide 20 mmol/L (22-30); Chloride 106 mmol/L (98-107); Glucose 94 mg/dL (74-99); Potassium 4.1 mmol/L (3.5-5.1); Sodium 137 mmol/L (137-145); Total Bilirubin 0.4 mg/dL (0.2-1.3)
--- NOTE | 2019-08-01 19:41 | US ---
EXAMINATION TYPE: US renals and bladder DATE OF EXAM: 08/01/2019 COMPARISON: US 04/18/2019 CLINICAL HISTORY: right flank pain, hx of stones, . 20 weeks EXAM MEASUREMENTS: Patient was surveyed in prone position due to severe right flank pain. Right Kidney: 11.1 x 7.5 x 6.8 cm Left Kidney: 12.5 x 6.6 x 5.3 cm Post Void Residual Volume: not assessed as UA was recently provided to EC staff. Right Kidney: moderate to severe hydronephrosis; possible shadowing stone in lower pole = 0.7 x 0.7 x 0.3cm Left Kidney: couple of shadowing stones seen with upper pole calcification = 0.7 x 0.8 x 0.4cm and mi d lower shadowing calcification = 0.7 x 0.6 x 0.2cm. Bladder: minimally distended Bilateral Jets seen: only left ureteral jet was seen IMPRESSION: Similar exam in comparison to the prior of 04/18/2019. Moderate to severe right hydronephrosis similar in appearance to the prior of 12/18/2018. There are multiple nonobstructing left renal calculi seen a nd possible 0.7 cm calculus in the right lower pole of the kidney. Left ureteral jet is noted. Right is nonvisualized. Obstructive uropathy on the right is possible.
[2019-08-01] MEDS ORDERED: NALOXONE 0.4 MG/ML 1 ML VIAL IV PRN (20:23)
[2019-08-01] MEDS ORDERED: ACETAMINOPHEN TAB 325 MG TAB PO PRN (20:23)
[2019-08-01 20:25] VITALS: RESP 18
[2019-08-01] MEDS ORDERED: SODIUM CHLORIDE 0.9% 1,000 ML IV SCH (20:30)
[2019-08-01] MEDS: METOCLOPRAMIDE 5 MG/ML 2 ML VIAL IVP SCH (21:09)
[2019-08-01] MEDS: MORPHINE SULFATE 4 MG/ML SYRINGE IV PRN (22:03)
[2019-08-01] MEDS ORDERED: ONDANSETRON 4 MG/2 ML VIAL IVP PRN (22:19)
[2019-08-01] MEDS: traMADol 50 MG TAB PO PRN (22:40)
[2019-08-01] MEDS: LACTATED RINGERS 1,000 ML IV SCH (22:42)
[2019-08-01 23:29] VITALS: BP 133/75; PULSE 82; TEMP 97.6; BMI 32.2
[2019-08-02] MEDS: MORPHINE SULFATE 4 MG/ML SYRINGE IV PRN ×3 (02:09→16:42)
[2019-08-02] MEDS: METOCLOPRAMIDE 5 MG/ML 2 ML VIAL IVP SCH (02:35)
--- NOTE | 2019-08-02 03:37 | P.HPOB ---
History of Present Illness H&P Date: 08/02/19 Chief Complaint: Right flank pain This is a 28-year-old female 3 para 1 with an estimated date of confinement of 12/19/2019, estimated gestational age of 20-3/7 weeks, who presented to the emergency room last night complaining of severe right flank pain along with nausea and vomiting due to pain. She does have a history of kidney stones during this and this is her third admission for kidney stones. She states she did not pass a stone the last time. She was taking Tylenol with codeine at home for pain control but this did not help and that's why she came to the emergency room. Her has otherwise been uncomplicated. Her care is with Dr. Meredith. Obstetrical history: . History of 1 delivery due to failed induction. She also has a history of 1 miscarriage. Review of Systems Constitutional: Denies chills, Denies fever Eyes: denies blurred vision, denies pain Ears, nose, mouth and throat: Denies headache, Denies sore throat Cardiovascular: Denies chest pain, Denies shortness of breath Respiratory: Denies cough Gastrointestinal: Reports abdominal pain (Right lower quadrant), Reports nausea, Reports vomiting Genitourinary: Reports pelvic pain (Right lower quadrant), Reports Musculoskeletal: Reports low back pain (Right flank) Integumentary: Denies pruritus, Denies rash Neurological: Denies numbness, Denies weakness Psychiatric: Reports depression Past Medical History Past Medical History: Asthma Additional Past Medical History / Comment(s): migraines, bronchitis, constipation alternating with diarrhea, hx kidney stones, hx kidney and bladder infections History of Any Multi-Drug Resistant Organisms: None Reported Past Surgical History: Section Past Anesthesia/Blood Transfusion Reactions: Motion Sickness Past Psychological History: Anxiety, Depression Smoking Status: Never smoker Past Alcohol Use History: None Reported Past Drug Use History: None Reported - Past Family History Mother Family Medical History: No Reported History, Hypertension Additional Family Medical History / Comment(s): Multiple Sclerosis Medications and Allergies Home Medications Medication Instructions Recorded Confirmed Type Pnv,Calcium 72/Iron/Folic Acid 1 tab PO HS 03/09/17 08/01/19 History [ Plus Tablet] DULoxetine HCL [Cymbalta] 60 mg PO HS 04/18/19 08/01/19 History Acetaminophen-Codeine 300-30mg 1 tab PO Q4-6H PRN 08/01/19 08/01/19 History [Tylenol w/codeine #3] Loratadine [Claritin] 10 mg PO HS 08/01/19 08/01/19 History Allergies Allergy/AdvReac Type Severity Reaction Status Date / Time amoxicillin Allergy Unknown Verified 08/01/19 20:28 Childhood gluten AdvReac Diarrhea Verified 08/01/19 20:28 Exam Osteopathic Statement: *. No significant issues noted on an osteopathic structural exam other than those noted in the History and Physical/Consult. Vital Signs Temp Pulse Pulse Resp BP BP Pulse Ox 08/01/19 21:50 97.6 F 82 18 133/75 98 08/01/19 20:25 77 18 144/77 97 08/01/19 17:38 97.4 F L 87 22 129/82 99 Intake and Output 08/01/19 08/01/19 08/02/19 14:59 22:59 06:59 Other: # Voids 2 Weight 85.275 kg Gen.: Well-developed well-nourished female in mild acute distress HEENT: Within normal limits Heart: Regular rate and rhythm Lungs: Clear to auscultation bilaterally Abdomen: , nontender positive heart tones by Doppler Back: Right flank tenderness extending into the right hip area Extremities: Negative Homans Results Result Diagrams: 08/01/19 18:30 08/01/19 18:30 Abnormal Lab Results - Last 24 Hours (Table) 08/01/19 08/01/19 08/01/19 Range/Units 18:30 18:30 18:30 WBC 12.3 H (3.8-10.6) k/uL Neutrophils # 10.2 H (1.3-7.7) k/uL Carbon Dioxide 20 L (22-30) mmol/L Urine pH 8.5 H (5.0-8.0) Urine Protein Trace H (Negative) Urine Ketones 1+ H (Negative) Assessment and Plan (1) 20 weeks gestation of Current Visit: Yes Status: Acute Code(s): Z3A.20 - 20 WEEKS GESTATION OF SNOMED Code(s): 33895932 (2) Hydronephrosis Current Visit: Yes Status: Acute Code(s): N13.30 - UNSPECIFIED HYDRONEPHROSIS SNOMED Code(s): 07330668 (3) Kidney stone Current Visit: No Status: Acute Code(s): N20.0 - CALCULUS OF KIDNEY SNOMED Code(s): 98402747 Plan: Admission for pain control. Consultation with urology. We'll strain all urine.
[2019-08-02] MEDS: traMADol 50 MG TAB PO PRN ×3 (05:13→19:45)
[2019-08-02] MEDS: LACTATED RINGERS 1,000 ML IV SCH ×3 (06:05→19:45)
--- NOTE | 2019-08-02 09:59 | P.GSCN ---
History of Present Illness Consult date: 08/02/19 Reason for Consult: Right hydronephrosis History of present illness: The patient is a 28-year-old female admitted through the emergency room last night due to severe right flank pain, nausea and vomiting. Her pain began earlier in the day and was located in the right low back with radiation to the right lower quadrant. She has a history of kidney stones and has had intermittent right flank pain since March of this year. Her pain was similar to previous episodes of colic and because of that a renal ultrasound was obtained in the emergency room. This showed evidence of moderate to severe right hydronephrosis. There appeared to be calculi present in both kidneys. An ultrasound on 05/20 also showed severe right hydronephrosis. The patient was evaluated by at that time. He discussed further observation versus surgical treatment. The patient is and in view of the potential risks further observation was recommended. She has not been seen back by him since then. She said that she remained comfortable until yesterday. She says that she has noted some blood off and on for the last few days. She is also noted increased urinary urgency for the last month but this could be related to the fact that she drinks 3 or 4 24 ounce bottles of water daily. She has had urinary tract infections in the past but not in the last 2 years. She denies any dysuria, fever or chills. Review of Systems - Constitutional Denies chills, Denies fever - Cardiovascular Denies shortness of breath - Gastrointestinal Reports as per HPI - Genitourinary Genitourinary: Reports as per HPI Past Medical History Past Medical History: Asthma Additional Past Medical History / Comment(s): migraines, bronchitis, constipation alternating with diarrhea, hx kidney stones, hx kidney and bladder infections History of Any Multi-Drug Resistant Organisms: None Reported Past Surgical History: Section Past Anesthesia/Blood Transfusion Reactions: Motion Sickness Past Psychological History: Anxiety, Depression Smoking Status: Never smoker Past Alcohol Use History: None Reported Past Drug Use History: None Reported - Past Family History Mother Family Medical History: No Reported History, Hypertension Additional Family Medical History / Comment(s): Multiple Sclerosis Medications and Allergies Home Medications Medication Instructions Recorded Confirmed Type Pnv,Calcium 72/Iron/Folic Acid 1 tab PO HS 03/09/17 08/01/19 History [ Plus Tablet] DULoxetine HCL [Cymbalta] 60 mg PO HS 04/18/19 08/01/19 History Acetaminophen-Codeine 300-30mg 1 tab PO Q4-6H PRN 08/01/19 08/01/19 History [Tylenol w/codeine #3] Loratadine [Claritin] 10 mg PO HS 08/01/19 08/01/19 History Allergies Allergy/AdvReac Type Severity Reaction Status Date / Time amoxicillin Allergy Unknown Verified 08/01/19 20:28 Childhood gluten AdvReac Diarrhea Verified 08/01/19 20:28 Surgical - Exam Vital Signs Temp Pulse Resp BP Pulse Ox 97.4 F L 87 22 129/82 99 08/01/19 17:38 08/01/19 17:38 08/01/19 17:38 08/01/19 17:38 08/01/19 17:38 - General well developed, well nourished, no distress, obese - ENT no hearing loss - Neck no masses, no lymphadectomy - Respiratory normal respiratory effort - Abdomen Abdomen: soft, non tender, no organomegaly Results - Labs 08/01/19 18:30 08/01/19 18:30 Abnormal Lab Results - Last 24 Hours (Table) 08/01/19 08/01/19 08/01/19 Range/Units 18:30 18:30 18:30 WBC 12.3 H (3.8-10.6) k/uL Neutrophils # 10.2 H (1.3-7.7) k/uL Carbon Dioxide 20 L (22-30) mmol/L Urine pH 8.5 H (5.0-8.0) Urine Protein Trace H (Negative) Urine Ketones 1+ H (Negative) Diabetes panel 08/01/19 Range/Units 18:30 Sodium 137 (137-145) mmol/L Potassium 4.1 (3.5-5.1) mmol/L Chloride 106 (98-107) mmol/L Carbon Dioxide 20 L (22-30) mmol/L BUN 8 (7-17) mg/dL Creatinine 0.63 (0.52-1.04) mg/dL Glucose 94 (74-99) mg/dL Calcium 9.3 (8.4-10.2) mg/dL AST 25 (14-36) U/L ALT 26 (9-52) U/L Alkaline Phosphatase 61 (38-126) U/L Total Protein 7.0 (6.3-8.2) g/dL Albumin 4.0 (3.5-5.0) g/dL Calcium panel 08/01/19 Range/Units 18:30 Calcium 9.3 (8.4-10.2) mg/dL Albumin 4.0 (3.5-5.0) g/dL Pituitary panel 08/01/19 Range/Units 18:30 Sodium 137 (137-145) mmol/L Potassium 4.1 (3.5-5.1) mmol/L Chloride 106 (98-107) mmol/L Carbon Dioxide 20 L (22-30) mmol/L BUN 8 (7-17) mg/dL Creatinine 0.63 (0.52-1.04) mg/dL Glucose 94 (74-99) mg/dL Calcium 9.3 (8.4-10.2) mg/dL Adrenal panel 08/01/19 Range/Units 18:30 Sodium 137 (137-145) mmol/L Potassium 4.1 (3.5-5.1) mmol/L Chloride 106 (98-107) mmol/L Carbon Dioxide 20 L (22-30) mmol/L BUN 8 (7-17) mg/dL Creatinine 0.63 (0.52-1.04) mg/dL Glucose 94 (74-99) mg/dL Calcium 9.3 (8.4-10.2) mg/dL Total Bilirubin 0.4 (0.2-1.3) mg/dL AST 25 (14-36) U/L ALT 26 (9-52) U/L Alkaline Phosphatase 61 (38-126) U/L Total Protein 7.0 (6.3-8.2) g/dL Albumin 4.0 (3.5-5.0) g/dL Assessment and Plan (1) Hydronephrosis Narrative/Plan: The patient's right hydronephrosis is most likely related to an obstructive ureteral calculus. A renal ultrasound in 05/2018 showed no evidence of hydronephrosis. The location of the presumed ureteral calculus could not be determined on the basis of the ultrasound but hopefully the fact that the patient has increased urinary urgency remains that this stone is migrating closer to the bladder. Unfortunately the patient's large fluid intake and her gravid uterus could also increase urinary urgency. I discussed further observation versus possible surgical treatment and both the patient and I feel that conservative treatment would be best at least for the next day or 2. I will reevaluate the patient tomorrow. Current Visit: Yes Status: Acute Code(s): N13.30 - UNSPECIFIED HYDRONEPHROSIS SNOMED Code(s): 17565298
[2019-08-03] MEDS: MORPHINE SULFATE 4 MG/ML SYRINGE IV PRN (02:13)
[2019-08-03] MEDS: LACTATED RINGERS 1,000 ML IV SCH (02:15)
--- NOTE | 2019-08-03 07:29 | P.DS ---
Providers Date of admission: 08/01/19 20:17 Expected date of discharge: 08/03/19 Attending physician: Kelsey Wheeler Consults: 08/01/19 20:23 Consult Physician Stat Consulting Provider: Jg Edge Consult Reason/Comments: Intractable right flank pain secondary to right renal stone Do you want consulting provider notified?: Yes Primary care physician: Blaze Escobar - Discharge Diagnosis(es) (1) 20 weeks gestation of Current Visit: Yes Status: Acute (2) Hydronephrosis Current Visit: Yes Status: Acute (3) Kidney stone Current Visit: No Status: Acute Hospital Course: This is a 28-year-old female at approximately 20-1/2 weeks who presented with flank pain and intractable nausea and vomiting due to pain. She was given IV fluids and pain control with morphine and tramadol. Her pain has significantly improved in the last time she used in a morphine was set to a.m. this morning. She is starting to urinate more and her pain has shifted from her right lower back to the right groin area. She would like to potentially go home later today if things continue to go well. She has an appointment scheduled with Dr. Meredith on Sunday. Will await recommendations from Dr. Edge prior to discharge. Patient advised we'll give 18 tablets of Tylenol No. 3 which did help her pain in the past. She will sign start taking opioid form. She is aware of risks and benefits of taking narcotics. Patient Condition at Discharge: Stable Plan - Discharge Summary New Discharge Prescriptions: Continue Pnv,Calcium 72/Iron/Folic Acid [ Plus Tablet] 1 tab PO HS DULoxetine HCL [Cymbalta] 60 mg PO HS Loratadine [Claritin] 10 mg PO HS Acetaminophen-Codeine 300-30mg [Tylenol w/codeine #3] 1 tab PO Q4-6H PRN #18 tab PRN Reason: Pain Discharge Medication List Pnv,Calcium 72/Iron/Folic Acid [ Plus Tablet] 1 tab PO HS 03/09/17 [History] DULoxetine HCL [Cymbalta] 60 mg PO HS 04/18/19 [History] Loratadine [Claritin] 10 mg PO HS 08/01/19 [History] Acetaminophen-Codeine 300-30mg [Tylenol w/codeine #3] 1 tab PO Q4-6H PRN #18 tab 11/10/19 [Rx] Follow up Appointment(s)/Referral(s): Blaze Escobar MD [Primary Care Provider] - 1-2 days Jaz Meredith DO [Doctor of Osteopathic Medicine] - 1 Week Activity/Diet/Wound Care/Special Instructions: Activity as tolerated. Diet as tolerated. Return to the hospital if pain becomes severe or unable to hold anything down. Discharge Disposition: HOME SELF-CARE
--- NOTE | 2019-08-03 09:03 | P.PN ---
Progress Note - Text Progress Note Date: 08/03/19 The patient is afebrile and says that she feels much better than she did the previous day. She has had some mild right flank pain but this is has been tolerable with oral analgesics. The patient is tolerating a diet. She can be discharged today but should follow-up with Dr Grimes. Due to her history of stones she will eventually need a metabolic evaluation. I told her to continue to strain her urine.
== END 2019-08-03 09:52 | disposition home or self-care (01) | DRG 832 ==
LOC: EC 17:23 → 4FBP 20:17
PROVIDERS: ADMIT Obstetrics & Gynecology; ATTEND Obstetrics & Gynecology
DX: O26.832 Pregnancy related renal disease, second trimester (principal); N13.2 Hydronephrosis with renal and ureteral calculous obstruction; O99.342 Other mental disorders complicating pregnancy, second trimester; F32.9 Major depressive disorder, single episode, unspecified; F41.9 Anxiety disorder, unspecified; O99.512 Diseases of the respiratory system complicating pregnancy, second trimester; J45.909 Unspecified asthma, uncomplicated; G43.909 Migraine, unspecified, not intractable, without status migrainosus; Z3A.20 20 weeks gestation of pregnancy; Z79.899 Other long term (current) drug therapy; Z87.442 Personal history of urinary calculi; Z87.440 Personal history of urinary (tract) infections; Z98.891 History of uterine scar from previous surgery; Z87.19 Personal history of other diseases of the digestive system; Z88.0 Allergy status to penicillin; Z91.018 Allergy to other foods; Z82.0 Family history of epilepsy and other diseases of the nervous system
CPT/HCPCS: 36415; 76770; 80053; 81003; 85025; 96361; 96374; 96375; 96376; 99285

== ENCOUNTER 2019-10-10 19:55 | Observation (INO) | payer OTHER ==
[2019-10-10] MEDS: HYDROcodone/APAP 7.5-325MG 1 EACH TAB PO PRN ×2 (19:55→23:58)
[2019-10-10] MEDS ORDERED: ONDANSETRON 4 MG/2 ML VIAL IVP PRN (20:23)
[2019-10-10] MEDS: LACTATED RINGERS 1,000 ML IV SCH ×3 (21:04→23:16)
[2019-10-10] MEDS: BUTORPHANOL 1 MG/ML 1 ML VIAL IV PRN ×2 (21:07→23:13)
--- NOTE | 2019-10-10 21:23 | P.HPOB ---
History of Present Illness H&P Date: 10/10/19 Chief Complaint: Intrauterine Precis 30 weeks: Suspect kidney stone Patient is a 29-year-old at 30 weeks gestation who ryes complaining of right flank and back pain radiating around to the front. She relates that earlier this she was noted to have suspected kidney stone and had hydronephrosis. Following IV hydration and pain management pain subsided she was discharged home but did not ever discover 80s stone but passed. This morning she began having similar pain and after 12 hours is sitting trying to just tolerate the pain she came to labor and delivery. On presentation she is rocking back and forth insignificant flank pain. Urine will be sent. Labs are drawn and ultrasound of the kidneys has been ordered. heart tones reveal a category 1 tracing is reactive with a baseline in the 130s to 140s. She has no contractions. Symptoms are consistent with kidney stone and will plan to admit her for pain management and observation. Should there be significant hydronephrosis may need to consult urology although is unclear at this time ot her than hydration what they would opt to do. On physical exam vital signs are stable and afebrile. Heart regular, lungs clear, extremities without pain. She does have flank tenderness. No other gr oss findings. Assessment intrauterine at 30 weeks. Plan IV hydration with IV pain management. We'll do a CMP and an ultrasound of the kidneys. Past Medical History Past Medical History: Asthma Additional Past Medical History / Comment(s): migraines, bronchitis, constipation alternating with diarrhea, hx kidney stones, hx kidney and bladder infections History of Any Multi-Drug Resistant Organisms: None Reported Past Surgical History: Section Past Anesthesia/Blood Transfusion Reactions: Motion Sickness Smoking Status: Never smoker - Past Family History Mother Family Medical History: No Reported History, Hypertension Additional Family Medical History / Comment(s): Multiple Sclerosis Medications and Allergies Home Medications Medication Instructions Recorded Confirmed Type Pnv,Calcium 72/Iron/Folic Acid 1 tab PO HS 03/09/17 10/10/19 History [ Plus Tablet] Loratadine [Claritin] 10 mg PO HS 08/01/19 10/10/19 History Allergies Allergy/AdvReac Type Severity Reaction Status Date / Time amoxicillin Allergy Unknown Verified 10/10/19 20:22 Childhood gluten AdvReac Diarrhea Verified 10/10/19 20:22 Exam Osteopathic Statement: *. No significant issues noted on an osteopathic st ructural exam other than those noted in the History and Physical/Consult. Intake and Output 10/10/19 10/10/19 10/10/19 06:59 14:59 22:59 Other: Weight 97.522 kg - OBG Physical Exam Breast: both: normal (no masses) Abdomen: bowel sounds normal, no diffuse tenderness, no bruit present, no gu arding noted, no hepatomegaly, no splenomegaly, no mass Vulva: both: normal Vagina: normal moisture, no discharge Cervix: no lesion, no discharge Uterus: normal size, normal contour Adnexa: both: normal Anus/Rectum: normal perianal skin, no rectal mass, no hemorrhoids, heme negative
--- NOTE | 2019-10-10 22:15 | US ---
EXAMINATION TYPE: US kidneys/renal and bladder DATE OF EXAM: 10/10/2019 COMPARISON: US 2019 08/01/2019 CLINICAL HISTORY: kidney stones. Right flank pain, history of kidney stones, patient is 30 weeks preg nant. EXAM MEASUREMENTS: Right Kidney: 13.7 x 6.6 x 5.9 cm Left Kidney: 13.5 x 6.8 x 6.2 cm Right Kidney: enlarged, hydronephrosis, 0.6cm echogenic focus lateral mid pole Left Kidney: 1.2cm echogenic shadowing focus mid pole and 1.1cm echogenic shadowing focus inferior po le Bladder: not fully distended Bilateral Jets seen: no There is no evidence for hydronephrosis at this point in time. No nephrolithiasis is seen. No evelio s are identified. The urinary bladder is anechoic. Bilateral ureteral jets are seen. IMPRESSION: Nonobstructing left renal calculi. Moderate right-sided hydronephrosis. Hydronephrosis unchanged compared to old exam. No renal atrophy.
[2019-10-10 22:17] LABS: ALT 12 U/L (4-34); AST 16 U/L (14-36); African American GFR (CKD) >90 (>60 ml/min/1.73 sqM); Albumin 3.1 g/dL (3.5-5.0); Alkaline Phosphatase 61 U/L (38-126); Anion Gap 5 mmol/L; Blood Urea Nitrogen 15 mg/dL (7-17); Calcium 8.7 mg/dL (8.4-10.2); Carbon Dioxide 23 mmol/L (22-30); Chloride 107 mmol/L (98-107); Glucose 82 mg/dL (74-99); Non-African American GFR(CKD) >90 (>60 ml/min/1.73 sqM); Potassium 4.1 mmol/L (3.5-5.1); Sodium 135 mmol/L (137-145); Total Bilirubin 0.3 mg/dL (0.2-1.3); Total Protein 5.6 g/dL (6.3-8.2)
[2019-10-10 23:04] LABS: Appearance,Urine Clear (Clear); Bilirubin,Urine Negative (Negative); Blood,Urine Negative (Negative); Color,Urine Yellow; Glucose,Urine (UA) Negative (Negative); Ketones,Urine Negative (Negative); Leukocyte Esterase,Urine Negative (Negative); Nitrite,Urine Negative (Negative); Protein,Urine Negative (Negative); Specific Gravity,Urine 1.022 (1.001-1.035); Urobilinogen,Urine <2.0 mg/dL (<2.0)
[2019-10-10] MEDS ORDERED: BUTORPHANOL 1 MG/ML 1 ML VIAL IV PRN (23:50)
[2019-10-11] MEDS: LACTATED RINGERS 1,000 ML IV SCH (04:38)
[2019-10-11] MEDS: HYDROcodone/APAP 7.5-325MG 1 EACH TAB PO PRN ×2 (06:52→12:35)
--- NOTE | 2019-10-11 14:51 | P.DS ---
Providers Date of admission: 10/10/19 21:24 Expected date of discharge: 10/11/19 Attending physician: Jaz Meredith Consults: 10/10/19 23:47 Consult Physician Routine Consulting Provider: Glen Sims Consult Reason/Comments: bilateral kidney stones Do you want consulting provider notified?: Yes Placement Type Exists?: Yes Primary care physician: Stated None Hospital Course: Patient is seen and evaluated. She is feeling better and urology has done there evaluation. We will prescribe 20 [place] for her to go home with suture she has something to take next few days for severe pain. Her pain is better and she feels like the stone may have gone down some. She is still able to void and she is tolerating a diet now. We'll plan discharged home and she will follow up w mnoa Meredith on Sunday. She is aware to return with any significant difficulties with voiding any severe pain or other signs or symptoms of problems or urinary retention. All the questions were answered for her prior to discharge. Vital signs stable afebrile. Heart regular, lungs clear, extremities without pain. Abdomen soft and gravid uterus is noted. A category 1 tracing has been noted. Assessment intrauterine at 31 weeks. Plan discharged home follow up outpatient Patient Condition at Discharge: Stable Plan - Discharge Summary New Discharge Prescriptions: No Action Pnv,Calcium 72/Iron/Folic Acid [ Plus Tablet] 1 tab PO HS Loratadine [Claritin] 10 mg PO HS Discharge Medication List Pnv,Calcium 72/Iron/Folic Acid [ Plus Tablet] 1 tab PO HS 03/09/17 [History] Loratadine [Claritin] 10 mg PO HS 08/01/19 [History] Discharge Disposition: HOME SELF-CARE
[2019-10-11 16:19] VITALS: BP 118/65; PULSE 77; RESP 16; TEMP 98.1
== END 2019-10-11 17:59 | disposition home or self-care (01) ==
LOC: FBPOP 19:55 → 4FBP 21:24
PROVIDERS: ADMIT Obstetrics & Gynecology; ATTEND Obstetrics & Gynecology
DX: O26.833 Pregnancy related renal disease, third trimester (principal); N20.0 Calculus of kidney; J45.909 Unspecified asthma, uncomplicated; O26.893 Other specified pregnancy related conditions, third trimester; Z3A.30 30 weeks gestation of pregnancy; O99.513 Diseases of the respiratory system complicating pregnancy, third trimester; Z87.442 Personal history of urinary calculi; K59.00 Constipation, unspecified; J40 Bronchitis, not specified as acute or chronic; G43.909 Migraine, unspecified, not intractable, without status migrainosus; Z82.0 Family history of epilepsy and other diseases of the nervous system; Z82.49 Family history of ischemic heart disease and other diseases of the circulatory system; Z79.899 Other long term (current) drug therapy
CPT/HCPCS: 59025; 96376 ×2; 99213; 96374; 96375; 80053; 81003; 76770; G0378 ×2; J0595 ×2; J2405; 96367

== ENCOUNTER 2019-11-03 13:04 | Outpatient (CLI) | payer OTHER ==
[2019-11-03 13:49] LABS: Appearance,Urine Cloudy (Clear); Bacteria,Urine Rare /hpf; Bilirubin,Urine Negative (Negative); Blood,Urine Small (Negative); Color,Urine Yellow; Glucose,Urine (UA) Negative (Negative); Ketones,Urine Negative (Negative); Leukocyte Esterase,Urine Moderate (Negative); Mucus,Urine Rare /hpf; Nitrite,Urine Negative (Negative); Protein,Urine Trace (Negative); RBC,Urine 26 /hpf (0-5); Specific Gravity,Urine 1.023 (1.001-1.035); Squamous Epithelial Cell,Urine 9 /hpf (0-4); Urobilinogen,Urine <2.0 mg/dL (<2.0); WBC,Urine 9 /hpf (0-5)
[2019-11-03 14:07] VITALS: BP 124/70; PULSE 100; RESP 18; TEMP 97.5
--- NOTE | 2019-12-05 21:57 | P.MSEPDOC ---
Presenting Problems - Arrival Data Date of Arrival on Unit: 11/03/19 Time of Arrival on Unit: 13:05 Mode of Transport: Ambulatory - Complaint OB-Reason for Admission/Chief Complaint: Pain Comment: back pain, pelvic pain, decreased movement Medical History - Information : 3 Para: 1 Term: 1 : 0 Abortions: Spontaneous or Elective: 1 Number of Living Children: 1 - Gestational Age Gestational Age by KIRK (wks/days): 33 Weeks and 3 Days - History Complications: Prior Review of Systems - Review of Systems Constitutional: No problems Breast: No problems ENT: No problems Cardiovascular: No problems Respiratory: No problems Gastrointestinal: No problems Genitourinary: No problems Musculoskeletal: No problems Neurological: No problems Skin: No problems Vital Signs - Temperature Temperature: 97.5 F Temperature Source: Oral - Pulse Right Sitting Brachial Pulse Rate: 100 Pulse Assessment Method: Automatic Cuff - Respirations Respiratory Rate: 18 Oxygen Delivery Method: Room Air O2 Sat by Pulse Oximetry: 100 - Blood Pressure Right Arm Sitting Blood Pressure: 124/70 Blood Pressure Mean: 88 Blood Pressure Source: Automatic Cuff Medical Screen Scoring (Pre) - Cervical Exam Dilation: 0 cm = 0 - Uterine Contractions Frequency: > 5 minutes apart = 1 Duration: > 40 seconds = 2 Intensity: N/A - Maternal Vital Signs Maternal Temperature: N/A Maternal Blood Pressure: N/A Signs of Preeclampsia: N/A Maternal Respirations: N/A - Maternal Trauma Maternal Trauma: N/A - Assessment - Baby A Baseline FHR: 125 Heart Rate - NICHD Category: Category I (Normal) = 0 NST: Reactive Position: N/A Station: N/A - Total Score - Baby A Total Score - Baby A: 3 - Total Score - Baby B Total Score - Baby B: 3 - Total Score - Baby C Total Score - Baby C: 3 - Level of Risk - Baby A Level of Risk - Baby A: Low (0-5) - Level of Risk - Baby B Level of Risk - Baby B: Low (0-5) - Level of Risk - Baby C Level of Risk - Baby C: Low (0-5) - Pain Assessment Pain Location and Character: Back, Abdomen Pain Scale Used: Numeric (1 - 10) Pain Intensity: 6 Pain Management Goal: 3 Pain Description: Aching Pain Radiation Location: none Pain Frequency: Intermittent Pain Duration: 15 Pain Duration Units: Minutes Pain Behavior: Vocalization Effects of Pain: none Pain Aggravating Factors: Activity, ADL's Physician Notification (Pre) - Physician Notified Physician Notified Date: 11/03/19 Physician Notified Time: 14:00 New Order Received: Yes - Notification Comment Comment: cx closed. NST reactive. Occasional contraction. dc home. send Urine for culture. Follow up in the office 11/14 as scheduled. Disposition - Disposition OB Disposition: Discharge to home Discharge Date: 11/03/19 Discharge Time: 14:02 I agree with the RN Medical Screening Exam: Yes Risk & Benefit of care provided described in d/c instruction: Yes Diagnosis: DECREASED MOVEMENTS, THIRD TRIMESTER, FETUS 1
== END 2019-11-03 14:00 | disposition home or self-care (01) ==
LOC: FBPOP 13:04
PROVIDERS: ATTEND Obstetrics & Gynecology
DX: O36.8131 Decreased fetal movements, third trimester, fetus 1 (principal); Z3A.33 33 weeks gestation of pregnancy
CPT/HCPCS: 59025; 81001; 87086; 99213

== ENCOUNTER 2019-12-12 10:00 | Inpatient (IN) | payer OTHER ==
[2019-12-11 10:18] VITALS: BMI 41.1
[2019-12-12] MEDS ORDERED: CITRIC ACID-SODIUM CITRATE 15 ML CUP PO ONE (10:14)
[2019-12-12 10:50] LABS: Basophils % (A) 0 %; Eosinophils # (A) 0.1 k/uL (0-0.7); Eosinophils % (A) 1 %; HCT 37.9 % (34.0-46.0); HGB 12.5 gm/dL (11.4-16.0); Lymphocytes # (A) 2.5 k/uL (1.0-4.8); Lymphocytes % (A) 22 %; MCH 28.7 pg (25.0-35.0); MCHC 32.9 g/dL (31.0-37.0); MCV 87.4 fL (80.0-100.0); Monocytes # (A) 0.5 k/uL (0-1.0); Monocytes % (A) 5 %; Neutrophils # (A) 7.9 k/uL (1.3-7.7); Neutrophils % (A) 70 %; Platelet Count 217 k/uL (150-450); RBC 4.34 m/uL (3.80-5.40); RDW 13.9 % (11.5-15.5); WBC 11.4 k/uL (3.8-10.6)
[2019-12-12] MEDS ORDERED: LACTATED RINGERS 1,000 ML IV SCH (11:15)
--- NOTE | 2019-12-12 12:11 | P.HPOB ---
History of Present Illness H&P Date: 12/12/19 Chief Complaint: repeat 29-year-old presents at 39 weeks for repeat low transverse . Review of Systems All systems: negative Constitutional: Denies chills, Denies fever Eyes: denies blurred vision, denies pain Ears, nose, mouth and throat: Denies headache, Denies sore throat Cardiovascular: Denies chest pain, Denies shortness of breath Respiratory: Denies cough Gastrointestinal: Denies abdominal pain, Denies diarrhea, Denies nausea, Denies vomiting Genitourinary: Denies dysuria, Denies hematuria Musculoskeletal: Denies myalgias Integumentary: Denies pruritus, Denies rash Neurological: Denies numbness, Denies weakness Psychiatric: Denies anxiety, Denies depression Endocrine: Denies fatigue, Denies weight change Past Medical History Past Medical History: Asthma Additional Past Medical History / Comment(s): Hx bronchitis, IBS, kidney stones - passed 3 in past few months, hx kidney and bladder infections. Fx bone Rt foot 4 months ago, in walking cast. Edema ankles, feet, fingers. History of Any Multi-Drug Resistant Organisms: None Reported Past Surgical History: Section Past Anesthesia/Blood Transfusion Reactions: Motion Sickness Past Psychological History: Anxiety, Depression Smoking Status: Never smoker Past Alcohol Use History: None Reported Additional Past Alcohol Use History / Comment(s): no alcohol during Past Drug Use History: None Reported - Past Family History Mother Family Medical History: Hypertension Additional Family Medical History / Comment(s): Multiple Sclerosis Medications and Allergies Home Medications Medication Instructions Recorded Confirmed Type Pnv,Calcium 72/Iron/Folic Acid 1 tab PO HS 03/09/17 12/12/19 History [ Plus Tablet] Loratadine [Claritin] 10 mg PO HS 08/01/19 12/12/19 History Albuterol Inhaler [Ventolin Hfa 1 - 2 puff INHALATION RT-Q6H PRN 12/11/19 12/11/19 History Inhaler] Allergies Allergy/AdvReac Type Severity Reaction Status Date / Time amoxicillin Allergy Unknown Verified 12/12/19 10:13 Childhood gluten AdvReac Diarrhea Verified 12/12/19 10:13 Exam Osteopathic Statement: *. No significant issues noted on an osteopathic structural exam other than those noted in the History and Physical/Consult. Vital Signs Temp Pulse Resp BP 03/20/20 10:58 96.0 F L 84 16 138/63 Intake and Output 12/11/19 12/12/19 12/12/19 22:59 06:59 14:59 Other: Weight 108.862 kg Heart: Regular rate and rhythm Lungs: Clear to auscultation bilaterally Abdomen: Soft, nontender Extremities: Negative Homans sign Results Result Diagrams: 12/12/19 10:30 Abnormal Lab Results - Last 24 Hours (Table) 12/12/19 Range/Units 10:30 WBC 11.4 H (3.8-10.6) k/uL Neutrophils # 7.9 H (1.3-7.7) k/uL Assessment and Plan (1) Previous section Current Visit: Yes Status: Acute Code(s): Z98.891 - HISTORY OF UTERINE SCAR FROM PREVIOUS SURGERY SNOMED Code(s): 774077073 Plan: 1. Prep for repeat low transverse
[2019-12-12] MEDS ORDERED: KETOROLAC 30 MG/ML 1 ML VIAL ONE (12:15)
[2019-12-12] MEDS ORDERED: diphenhydrAMINE 50 MG/ML 1 ML VIAL ONE (12:15)
[2019-12-12] MEDS ORDERED: ONDANSETRON 4 MG/2 ML VIAL ONE (12:15)
[2019-12-12] MEDS ORDERED: ePHEDrine SULFATE/0.9% NACL/PF 50 MG/5 ML SYRINGE IV ONE (12:15)
[2019-12-12] MEDS ORDERED: NALBUPHINE 10 MG/ML (1 ML AMP) ONE (12:15)
[2019-12-12] MEDS ORDERED: MORPHINE SULFATE (PF) 0.3 MG/0.3 ML SYR ONE (12:15)
[2019-12-12] MEDS ORDERED: NALOXONE 0.4 MG/ML 1 ML VIAL IV PRN (12:52)
[2019-12-12] MEDS ORDERED: LANOLIN CREAM 5 GM TUBE TOPICAL PRN (12:52)
[2019-12-12] MEDS ORDERED: diphenhydrAMINE 50 MG/ML 1 ML VIAL IVP PRN ×2 (12:52)
[2019-12-12] MEDS ORDERED: diphenhydrAMINE 50 MG CAP PO PRN (12:52)
[2019-12-12] MEDS ORDERED: diphenhydrAMINE 25 MG CAP PO PRN (12:52)
[2019-12-12] MEDS ORDERED: Rhogam IMMUNE GLOBULIN 1,500 UNIT/1 ML IM ONE (12:52)
[2019-12-12] MEDS ORDERED: ONDANSETRON 4 MG/2 ML VIAL IVP PRN (12:52)
[2019-12-12] MEDS ORDERED: METOCLOPRAMIDE 5 MG/ML 2 ML VIAL IVP PRN (12:52)
[2019-12-12] MEDS ORDERED: ZOLPIDEM 5 MG TAB PO PRN (12:52)
[2019-12-12] MEDS ORDERED: ACETAMINOPHEN TAB 325 MG TAB PO PRN (12:52)
[2019-12-12] MEDS ORDERED: SIMETHICONE 80 MG CHEWABLE PO PRN (12:52)
--- NOTE | 2019-12-12 12:52 | P.OP ---
Date of Procedure: 12/12/19 Preoperative Diagnosis: 1. at 39 weeks 2. previous Postoperative Diagnosis: 1. at 39 weeks 2. previous Procedure(s) Performed: Repeat low transverse Anesthesia: spinal Surgeon: Jaz Meredith Refueler #1: Brandon Mathew Estimated Blood Loss (ml): 508 IV fluids (ml): 700 Urine output (ml): 500 Pathology: none sent Condition: stable Disposition: floor Operative Findings: Viable female infant, Apgars 8, 9, weight 7 lbs. 14 oz. Description of Procedure: Patient was taken to the operating room where spinal anesthesia was found be adequate. She was prepped and draped in normal sterile fashion in dorsal supine position with a leftward tilt. Pfannenstiel skin incision was made the scalpel and carried through to the underlying layer of fascia with the scalpel. Fascia was incised in midline and carried bilaterally with the Weiss scissors. The superior aspect of the fascial incision was grasped with [place] clamps elevated and the underlying rectus muscles dissected off with the Weiss's. Attention was then turned to inferior aspect of same incision which in a similar fashion was grasped tented up and the underlying rectus muscles dissected off with the Weiss's. The rectus muscles were the midline and the peritoneum was identified tented up and entered sharply with the scalpel. The incision was extended superiorly and inferiorly with good visualization of the bladder. The bladder blade was inserted and the vesicouterine peritoneum was incised the [place]zen[place]ums then carried bilaterally and bladder flap created digitally. A low transverse incision was then made on the uterus with the scalpel. This was carried bilaterally and digital manner. Infant's head delivered atraumatically, nose and mouth bulb suctioned, cord clamped and cut, handed off to waiting nurses. Apgars 8,9, weight 7 lbs. 14 oz. Placenta delivered manually, intact with three-vessel cord. The uterus is exteriorized and cleared of all clots and debris. The uterine incision was closed with 0 Vicryl in a running locked fashion. Second layer of the same sutures used in imbricating fashion to obtain excellent hemostasis. Both ovaries and tubes appeared normal. The uterus was placed back into the abdomen. The peritoneum was reapproximated using 2-0 Vicryl in a running fashion. The muscles were reapproximated using 2- 0 Vicryl in interrupted fashion. The fascia was reapproximated using 0 Vicryl in a running fashion. The subcutaneous tissues closed with 3-0 Vicryl running fashion. The skin was closed joni. Patient tolerated the procedure well, sponge and instrument counts were correct times 2 and she was taken to the recovery room in stable condition.
[2019-12-12] MEDS ORDERED: OXYTOCIN 20 UNITS/1000 ML NS 1,000 ML IV SCH (13:00)
[2019-12-12] MEDS: LACTATED RINGERS 1,000 ML IV SCH ×2 (17:33→20:29)
[2019-12-12] MEDS: KETOROLAC 30 MG/ML 1 ML VIAL IVP PRN (20:38)
[2019-12-12] MEDS: SENNOSIDES-DOCUSATE SODIUM 1 EACH TAB PO SCH (20:38)
[2019-12-13] MEDS: KETOROLAC 30 MG/ML 1 ML VIAL IVP PRN (03:16)
[2019-12-13 03:25] VITALS: RESP 18
--- NOTE | 2019-12-13 07:16 | P.PN ---
Progress Note - Text Progress Note Date: 12/13/19 Patient doing well. Pain treated. Ambulating without weakness or paresthesia. Denies headache or pruritis. POD#1 s/p with spinal duramorph - doing well
[2019-12-13 07:22] LABS: Basophils % (A) 0 %; Eosinophils # (A) 0.2 k/uL (0-0.7); Eosinophils % (A) 2 %; HCT 32.9 % (34.0-46.0); HGB 10.6 gm/dL (11.4-16.0); Lymphocytes # (A) 2.6 k/uL (1.0-4.8); Lymphocytes % (A) 23 %; MCH 28.4 pg (25.0-35.0); MCHC 32.2 g/dL (31.0-37.0); MCV 88.2 fL (80.0-100.0); Monocytes # (A) 0.6 k/uL (0-1.0); Monocytes % (A) 5 %; Neutrophils # (A) 7.7 k/uL (1.3-7.7); Neutrophils % (A) 68 %; Platelet Count 197 k/uL (150-450); RBC 3.73 m/uL (3.80-5.40); RDW 14.1 % (11.5-15.5); WBC 11.3 k/uL (3.8-10.6)
[2019-12-13] MEDS: LACTATED RINGERS 1,000 ML IV SCH (07:27)
[2019-12-13] MEDS: SENNOSIDES-DOCUSATE SODIUM 1 EACH TAB PO SCH ×2 (08:03→19:33)
--- NOTE | 2019-12-13 08:52 | P.PNOBGPC ---
Subjective - Subjective Principal diagnosis: Postop day 1 Interval history: Patient is doing very well postop day 1. She is involuting, voiding tolerating a diet. She voices no complaints. All questions are answered for her at this time. Patient reports: Reports appetite normal, Reports voiding normally, Reports pain well controlled, Reports ambulating normally : doing well Objective - Vital Signs Latest vital signs: Vital Signs Temp Pulse Resp BP Pulse Ox 12/13/19 03:23 98.1 F 90 18 122/74 98 12/13/19 00:00 97.8 F 64 16 118/60 99 12/12/19 20:00 97.6 F 60 16 119/61 99 12/12/19 14:55 97.3 F L 78 16 130/66 100 12/12/19 14:25 60 14 125/68 100 12/12/19 13:55 65 16 121/62 100 12/12/19 13:40 57 L 16 113/56 98 12/12/19 13:25 58 L 14 115/57 98 12/12/19 13:10 64 16 120/58 97 12/12/19 12:55 97.2 F L 76 16 137/62 97 12/12/19 10:58 96.0 F L 84 16 138/63 Intake and Output 12/12/19 12/13/19 12/13/19 22:59 06:59 14:59 Intake Total 600 Output Total 550 300 Balance -550 300 Intake: IV 600 Output: Urine 550 300 Uretheral (Allen) 250 Other: # Voids 1 - Exam Lungs: bilateral: normal Chest: Normal S1, Normal S2 Extremities: Present: normal Abdomen: Present: normal appearance, soft. Absent: distention, tenderness Incision: Present: normal, dry, intact Uterus: Present: normal, firm - Labs Labs: Abnormal Lab Results - Last 24 Hours (Table) 12/12/19 12/13/19 Range/Units 10:30 06:53 WBC 11.4 H 11.3 H (3.8-10.6) k/uL RBC 3.73 L (3.80-5.40) m/uL Hgb 10.6 L (11.4-16.0) gm/dL Hct 32.9 L (34.0-46.0) % Neutrophils # 7.9 H (1.3-7.7) k/uL
[2019-12-13] MEDS: HYDROcodone/APAP 7.5-325MG 1 EACH TAB PO PRN ×2 (12:40→19:38)
[2019-12-13] MEDS: IBUPROFEN 600 MG TAB PO PRN ×2 (16:42→23:40)
[2019-12-14] MEDS: HYDROcodone/APAP 7.5-325MG 1 EACH TAB PO PRN (07:28)
[2019-12-14 07:33] VITALS: BP 113/72; PULSE 78; TEMP 98.1
--- NOTE | 2019-12-14 08:38 | P.DS ---
Providers Date of admission: 12/12/19 10:00 Expected date of discharge: 12/14/19 Attending physician: Jaz Meredith Primary care physician: Stated None Hospital Course: Patient is doing very well postop day 2. She is involuting, voiding and tolerating her diet. She voices no complaints. Vital signs are stable and afebrile. Her regular, lungs clear, extremities without pain. Abdomen is soft uterus is firm and lochia is reported light. Her incision is otherwise clean dry and intact. We'll plan to remove joni today predominantly because of the coronavirus outbreak and need for her to not be out about as much as possible. We'll plan Steri-Strips with Mastisol to maintain incisional integrity. Prescriptions for Motrin and [place] were forward to her pharmacy and a prescription for a breast pump was also provided. Discharge instructions are through a reviewed and all questions were answered for her. She is stable for discharge this time. Patient Condition at Discharge: Good Plan - Discharge Summary Discharge Rx Participant: No New Discharge Prescriptions: New Ibuprofen [Motrin] 600 mg PO Q6HR PRN #30 tab PRN Reason: Pain HYDROcodone/APAP 5-325MG [[place] 5-325] 1 tab PO Q4HR PRN #30 tab PRN Reason: Pain No Action Pnv,Calcium 72/Iron/Folic Acid [ Plus Tablet] 1 tab PO HS Loratadine [Claritin] 10 mg PO HS Albuterol Inhaler [Ventolin Hfa Inhaler] 1 - 2 puff INHALATION RT-Q6H PRN PRN Reason: ASTHMA Sx Discharge Medication List Pnv,Calcium 72/Iron/Folic Acid [ Plus Tablet] 1 tab PO HS 03/09/17 [History] Loratadine [Claritin] 10 mg PO HS 08/01/19 [History] Albuterol Inhaler [Ventolin Hfa Inhaler] 1 - 2 puff INHALATION RT-Q6H PRN 12/11/19 [History] HYDROcodone/APAP 5-325MG [[place] 5-325] 1 tab PO Q4HR PRN #30 tab 12/14/19 [Rx] Ibuprofen [Motrin] 600 mg PO Q6HR PRN #30 tab 12/14/19 [Rx] Follow up Appointment(s)/Referral(s): Masoud,Jaz, DO [Doctor of Osteopathic Medicine] - 1 Week Activity/Diet/Wound Care/Special Instructions: No heavy lifting, limit stairs and driving, and pelvic rest. If any high temperatures, heavy bleeding, or severe pain call my office Discharge Disposition: HOME SELF-CARE
[2019-12-14] MEDS: SENNOSIDES-DOCUSATE SODIUM 1 EACH TAB PO SCH (09:40)
[2019-12-14] MEDS: IBUPROFEN 600 MG TAB PO PRN (10:50)
== END 2019-12-14 12:15 | disposition home or self-care (01) | DRG 788 ==
LOC: 4FBP 10:00
PROVIDERS: ADMIT Obstetrics & Gynecology; ATTEND Obstetrics & Gynecology
PROC: 10D00Z1 Extraction of Products of Conception, Low, Open Approach (ICD-10-PCS; principal; 2019-12-12 12:00)
DX: O34.211 Maternal care for low transverse scar from previous cesarean delivery (principal); O99.52 Diseases of the respiratory system complicating childbirth; J45.909 Unspecified asthma, uncomplicated; O99.62 Diseases of the digestive system complicating childbirth; K58.9 Irritable bowel syndrome, unspecified; Z87.442 Personal history of urinary calculi; Z37.0 Single live birth; Z3A.39 39 weeks gestation of pregnancy; Z87.440 Personal history of urinary (tract) infections; Z82.0 Family history of epilepsy and other diseases of the nervous system; Z82.49 Family history of ischemic heart disease and other diseases of the circulatory system; Z86.59 Personal history of other mental and behavioral disorders; Z88.0 Allergy status to penicillin; Z91.018 Allergy to other foods
CPT/HCPCS: 85025; 86850; 86870; 86880; 86900; 86901

== ENCOUNTER 2021-12-10 01:02 | Observation (INO) | payer BC, OTHER ==
[2021-12-10] MEDS ORDERED: ONDANSETRON 4 MG/2 ML VIAL IVP PRN (01:18)
--- NOTE | 2021-12-10 01:28 | P.HPOB ---
History of Present Illness H&P Date: 12/10/21 Chief Complaint: Right flank pain, history kidney stones This patient is a pleasant 31-year-old 4 para 2 female estimated date of confinement 03/25/2022 estimated gestational age 25-0/7 weeks who presents to labor and delivery with complaints of right flank pain. 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 She has a history of kidney stones and has had to be admitted for this before and she states this is her typical pain. Patient was trying to tolerate the pain however became much worse this evening she now presents for further evaluation and treatment. She does indicate that she never had to have any lithotripsy or other surgery for her kidney stones. She is also had them with other pregnancies. She denies any vaginal bleeding or contractions. No nausea vomiting at this time. Review of Systems Constitutional: Reports as per HPI Genitourinary: Reports Menstruation: Reports amenorrhea Past Medical History Past Medical History: Asthma Additional Past Medical History / Comment(s): Hx bronchitis, IBS, kidney stones - passed 3 in past few months, hx kidney and bladder infections. Fx bone Rt foot 4 months ago, in walking cast. Edema ankles, feet, fingers. History of Any Multi-Drug Resistant Organisms: None Reported Past Surgical History: Section Past Anesthesia/Blood Transfusion Reactions: Motion Sickness Past Psychological History: Anxiety, Depression Past Alcohol Use History: None Reported Additional Past Alcohol Use History / Comment(s): no alcohol during Past Drug Use History: None Reported - Past Family History Mother Family Medical History: Hypertension Additional Family Medical History / Comment(s): Multiple Sclerosis Medications and Allergies Home Medications Medication Instructions Recorded Confirmed Type Pnv,Calcium 72/Iron/Folic Acid 1 tab PO HS 03/09/17 12/12/19 History [ Plus Tablet] Loratadine [Claritin] 10 mg PO HS 08/01/19 12/12/19 History Allergies Allergy/AdvReac Type Severity Reaction Status Date / Time amoxicillin Allergy Unknown Verified 12/12/19 10:13 Childhood gluten AdvReac Diarrhea Verified 12/12/19 10:13 Exam Intake and Output 12/09/21 12/09/21 12/10/21 14:59 22:59 06:59 Other: Weight 94.801 kg Results blood work shows she is B negative, rubella nonimmune, RPR is nonreactive, hepatitis B is negative. Assessment and Plan Assessment: This is a pleasant 31-year-old 4 para 2 female at 25 weeks' gestation with history of kidney stones now with recurrence of her pain. Plan is admission for IV hydration, pain control, and we'll also get a renal and bladder ultrasound. (1) 25 weeks gestation of Current Visit: Yes Status: Acute Code(s): Z3A.25 - 25 WEEKS GESTATION OF SNOMED Code(s): 29833499 (2) Kidney stone Current Visit: No Status: Acute Code(s): N20.0 - CALCULUS OF KIDNEY SNOMED Code(s): 88108268
[2021-12-10 01:56] LABS: Appearance,Urine Clear (Clear); Bacteria,Urine Rare /hpf; Bilirubin,Urine Negative (Negative); Blood,Urine Moderate (Negative); Color,Urine Light Yellow; Glucose,Urine (UA) Negative (Negative); Ketones,Urine Negative (Negative); Leukocyte Esterase,Urine Negative (Negative); Mucus,Urine Rare /hpf; Nitrite,Urine Negative (Negative); Protein,Urine Negative (Negative); RBC,Urine <1 /hpf (0-5); Specific Gravity,Urine 1.006 (1.001-1.035); Squamous Epithelial Cell,Urine 1 /hpf (0-4); Urobilinogen,Urine <2.0 mg/dL (<2.0); WBC,Urine 3 /hpf (0-5)
[2021-12-10 01:58] LABS: Basophils # (A) 0.1 k/uL (0-0.2); Basophils % (A) 1 %; Eosinophils # (A) 0.2 k/uL (0-0.7); Eosinophils % (A) 2 %; HCT 37.7 % (34.0-46.0); HGB 12.4 gm/dL (11.4-16.0); Lymphocytes # (A) 3.4 k/uL (1.0-4.8); Lymphocytes % (A) 31 %; MCH 30.2 pg (25.0-35.0); MCHC 32.9 g/dL (31.0-37.0); MCV 91.6 fL (80.0-100.0); Mean Platelet Volume 7.1; Monocytes # (A) 0.6 k/uL (0-1.0); Monocytes % (A) 5 %; Neutrophils # (A) 6.7 k/uL (1.3-7.7); Neutrophils % (A) 60 %; Platelet Count 251 k/uL (150-450); RBC 4.11 m/uL (3.80-5.40); WBC 11.2 k/uL (3.8-10.6)
[2021-12-10 02:15] LABS: ALT 12 U/L (4-34); AST 24 U/L (14-36); African American GFR (CKD) >90 (>60 ml/min/1.73 sqM); Albumin 3.4 g/dL (3.5-5.0); Alkaline Phosphatase 46 U/L (38-126); Anion Gap 4 mmol/L; Blood Urea Nitrogen 12 mg/dL (7-17); Calcium 9.2 mg/dL (8.4-10.2); Carbon Dioxide 23 mmol/L (22-30); Chloride 104 mmol/L (98-107); Glucose 90 mg/dL (74-99); Non-African American GFR(CKD) >90 (>60 ml/min/1.73 sqM); Potassium 4.3 mmol/L (3.5-5.1); Sodium 131 mmol/L (137-145); Total Bilirubin 0.3 mg/dL (0.2-1.3); Total Protein 5.9 g/dL (6.3-8.2)
[2021-12-10] MEDS: LACTATED RINGERS 1,000 ML IV SCH ×4 (02:40→18:52)
[2021-12-10] MEDS: BUTORPHANOL 1 MG/ML 1 ML VIAL IV PRN ×4 (02:41→11:27)
[2021-12-10] MEDS: ACETAMINOPHEN TAB 325 MG TAB PO PRN ×3 (06:21→20:35)
--- NOTE | 2021-12-10 07:22 | P.PN ---
Progress Note - Text Progress Note Date: 12/10/21 Patient is still having right flank pain and groin discomfort. Laboratory evaluation was normal however she does have moderate blood in her urine which is consistent with a kidney stone. Ultrasound of the kidneys and bladder as this morning. Plan is to continue IV hydration, check the ultrasound results, continue straining her urine and will need to continue inpatient until her pain is tolerable level for discharge.
--- NOTE | 2021-12-10 10:32 | US ---
EXAMINATION TYPE: US renals and bladder DATE OF EXAM: 12/10/2021 COMPARISON: Prior renal ultrasound August 01, 2019 CLINICAL HISTORY: Right flank pain, kidney stones. Hx of kidney stones. EXAM MEASUREMENTS: Right Kidney: 13.9 x 6.9 x 7.4 cm Left Kidney: 13.6 x 5.9 x 6.0 cm Right Kidney: Severe hydronephrosis seen. Left Kidney: Severe hydronephrosis seen. Bladder: Not fully distended. Bilateral Jets seen: No Bilateral severe hydronephrosis current study. The urinary bladder is not greatly distended. Bilate ral ureteral jets are not seen. IMPRESSION: Severe bilateral hydronephrosis currently. Follow-up imaging advised.
[2021-12-11] MEDS: ACETAMINOPHEN TAB 325 MG TAB PO PRN (02:34)
[2021-12-11] MEDS: LACTATED RINGERS 1,000 ML IV SCH (04:13)
--- NOTE | 2021-12-11 07:02 | P.PN ---
Progress Note - Text Progress Note Date: 12/11/21 Hospital day #2. Patient is feeling much better overnight and has not required any IV pain medications. I did review her renal ultrasound that she has bilateral severe hydronephrosis and apparently this is been present on previous imaging studies and last couple years. She states that she has seen urology when an inpatient but has not seen him as an outpatient because the pain resolves. She liked go home this morning I feel she is stable for discharge home and will need to be scheduled to see urology as an outpatient to establish care in the event she needs stents placed. Patient is agreeable to this plan. She'll follow-up with Dr. Meredith is scheduled and get the urology appointment scheduled at that time.
--- NOTE | 2021-12-11 07:15 | P.DS ---
Providers Date of admission: 12/10/21 01:24 Expected date of discharge: 12/11/21 Attending physician: Jaz Meredith Primary care physician: Stated None - Discharge Diagnosis(es) (1) 25 weeks gestation of Current Visit: Yes Status: Acute (2) Kidney stone Current Visit: No Status: Acute Hospital Course: Please see dictated H&P for details of this patient's admission. Brief summary is a pleasant 31-year-old multiparous patient 25 weeks gestation admitted with right flank pain and known history of kidney stones. Patient is admitted and given IV hydration and IV pain medications. Bilateral renal ultrasound shows bilateral severe hydronephrosis. This is a chronic condition. Patient pain defervesced and her pain significantly goes away spell to be stable for discharge home follow up with Dr. Meredith and urology as an outpatient. Patient Condition at Discharge: Stable Plan - Discharge Summary New Discharge Prescriptions: New Acetaminophen-Codeine 300-30mg [Tylenol w/codeine #3] 1 tab PO Q4H PRN 3 Days #18 tablet PRN Reason: Pain No Action Pnv,Calcium 72/Iron/Folic Acid [ Plus Tablet] 1 tab PO HS Loratadine [Claritin] 10 mg PO HS Discharge Medication List Pnv,Calcium 72/Iron/Folic Acid [ Plus Tablet] 1 tab PO HS 03/09/17 [History] Loratadine [Claritin] 10 mg PO HS 08/01/19 [History] Acetaminophen-Codeine 300-30mg [Tylenol w/codeine #3] 1 tab PO Q4H PRN 3 Days #18 tablet 12/11/21 [Rx] Follow up Appointment(s)/Referral(s): Jaz Meredith DO [Doctor of Osteopathic Medicine] - 1 Week Patient Instructions/Handouts: Kidney Stones (DC) Discharge Disposition: HOME SELF-CARE
[2021-12-11 07:33] VITALS: BP 125/73; PULSE 69; RESP 17; TEMP 97.5
== END 2021-12-11 08:00 | disposition home or self-care (01) ==
LOC: FBPOP 01:02 → INTOOBSV 01:24 → 4FBP 01:24 → UNDODISIN 12-11 08:00
PROVIDERS: ADMIT Obstetrics & Gynecology; ATTEND Obstetrics & Gynecology
DX: O26.832 Pregnancy related renal disease, second trimester (principal); N13.2 Hydronephrosis with renal and ureteral calculous obstruction; Z87.442 Personal history of urinary calculi; O99.512 Diseases of the respiratory system complicating pregnancy, second trimester; J45.909 Unspecified asthma, uncomplicated; K58.9 Irritable bowel syndrome, unspecified; Z87.09 Personal history of other diseases of the respiratory system; O99.342 Other mental disorders complicating pregnancy, second trimester; F32.A Depression, unspecified; F41.9 Anxiety disorder, unspecified; Z88.0 Allergy status to penicillin; Z91.018 Allergy to other foods; Z3A.25 25 weeks gestation of pregnancy; Z71.9 Counseling, unspecified; Z82.0 Family history of epilepsy and other diseases of the nervous system; Z82.49 Family history of ischemic heart disease and other diseases of the circulatory system
CPT/HCPCS: 96376; 99213; 96361 ×2; 96374; 80053; 85025; 81001; 87086; 76770; G0378 ×2; J0595

== ENCOUNTER 2022-03-21 05:58 | Inpatient (IN) | payer BC ==
[2022-03-21] MEDS ORDERED: CITRIC ACID-SODIUM CITRATE 15 ML CUP PO ONE (06:24)
[2022-03-21] MEDS: LACTATED RINGERS 1,000 ML IV SCH ×5 (06:35→17:14)
[2022-03-21] MEDS ORDERED: GENTAMICIN 380 MG in SODIUM CHLORIDE 0.9% 100 ML IVPB ONE (06:45)
[2022-03-21] MEDS ORDERED: CLINDAMYCIN 900 MG in DEXTROSE 5% IN WATER 50 ML IVPB ONE ×2 (06:45)
[2022-03-21 06:52] LABS: Basophils # (A) 0.1 k/uL (0-0.2); Basophils % (A) 1 %; Eosinophils # (A) 0.2 k/uL (0-0.7); Eosinophils % (A) 2 %; HCT 38.1 % (34.0-46.0); HGB 12.6 gm/dL (11.4-16.0); Lymphocytes % (A) 29 %; MCH 29.3 pg (25.0-35.0); MCHC 33.1 g/dL (31.0-37.0); MCV 88.5 fL (80.0-100.0); Mean Platelet Volume 7.9; Monocytes # (A) 0.6 k/uL (0-1.0); Monocytes % (A) 5 %; Neutrophils # (A) 6.5 k/uL (1.3-7.7); Neutrophils % (A) 61 %; Platelet Count 225 k/uL (150-450); RBC 4.31 m/uL (3.80-5.40); RDW 13.5 % (11.5-15.5); WBC 10.6 k/uL (3.8-10.6)
[2022-03-21] MEDS ORDERED: HYDROmorphone (PF) 1 MG/ML ONE (07:51)
[2022-03-21] MEDS ORDERED: OXYTOCIN 30 UNITS/500 ML NS BAG IV ONE (07:51)
[2022-03-21] MEDS ORDERED: KETOROLAC 15 MG/ML 1 ML VIAL ONE (07:51)
[2022-03-21] MEDS ORDERED: MORPHINE SULFATE (PF) 0.3 MG/0.3 ML SYR ONE (07:51)
[2022-03-21] MEDS ORDERED: ONDANSETRON 4 MG/2 ML VIAL ONE (07:51)
[2022-03-21] MEDS ORDERED: fentaNYL (PF) 50 MCG/ML 2 ML AMP ONE (07:51)
--- NOTE | 2022-03-21 08:34 | P.HPOB ---
History of Present Illness H&P Date: 03/21/22 Chief Complaint: repeat low transverse 31-year-old presents at 39 weeks and 3 days for repeat low transverse C- section. Review of Systems All systems: negative Constitutional: Denies chills, Denies fever Eyes: denies blurred vision, denies pain Ears, nose, mouth and throat: Denies headache, Denies sore throat Cardiovascular: Denies chest pain, Denies shortness of breath Respiratory: Denies cough Gastrointestinal: Denies abdominal pain, Denies diarrhea, Denies nausea, Denies vomiting Genitourinary: Denies dysuria, Denies hematuria Musculoskeletal: Denies myalgias Integumentary: Denies pruritus, Denies rash Neurological: Denies numbness, Denies weakness Psychiatric: Denies anxiety, Denies depression Endocrine: Denies fatigue, Denies weight change Past Medical History Past Medical History: Asthma Additional Past Medical History / Comment(s): Hx bronchitis, IBS, kidney stones - passed 7, hx kidney and bladder infections. Fx bone Rt foot, History of Any Multi-Drug Resistant Organisms: None Reported Past Surgical History: Section Additional Past Surgical History / Comment(s): 2 c-sections Past Anesthesia/Blood Transfusion Reactions: Motion Sickness Past Psychological History: Anxiety, Depression Smoking Status: Never smoker Past Alcohol Use History: None Reported Additional Past Alcohol Use History / Comment(s): no alcohol during Past Drug Use History: None Reported - Past Family History Mother Family Medical History: Hypertension Additional Family Medical History / Comment(s): Multiple Sclerosis Medications and Allergies Home Medications Medication Instructions Recorded Confirmed Type Pnv,Calcium 72/Iron/Folic Acid 1 tab PO HS 03/09/17 12/10/21 History [ Plus Tablet] Loratadine [Claritin] 10 mg PO HS 08/01/19 12/10/21 History Allergies Allergy/AdvReac Type Severity Reaction Status Date / Time amoxicillin Allergy Unknown Verified 03/21/22 06:23 Childhood gluten AdvReac Diarrhea Verified 03/21/22 06:23 Exam Osteopathic Statement: *. No significant issues noted on an osteopathic structural exam other than those noted in the History and Physical/Consult. Vital Signs Temp Pulse Resp BP 03/21/22 06:23 97.2 F L 97 16 134/69 Intake and Output 03/20/22 03/21/22 03/21/22 22:59 06:59 14:59 Other: Weight 106.141 kg Heart: Regular rate and rhythm Lungs: Clear to auscultation bilaterally Abdomen: Soft, nontender Extremities: Negative Homans sign Results Result Diagrams: 03/21/22 06:16 Assessment and Plan (1) 39 weeks gestation of Current Visit: Yes Status: Acute Code(s): Z3A.39 - 39 WEEKS GESTATION OF SNOMED Code(s): 32083005 (2) Previous section Current Visit: No Status: Acute Code(s): Z98.891 - HISTORY OF UTERINE SCAR FROM PREVIOUS SURGERY SNOMED Code(s): 437011099 Plan: 1. Repeat low transverse
[2022-03-21] MEDS ORDERED: ONDANSETRON 4 MG/2 ML VIAL IVP PRN (08:36)
[2022-03-21] MEDS ORDERED: diphenhydrAMINE 50 MG CAP PO PRN (08:36)
[2022-03-21] MEDS ORDERED: diphenhydrAMINE 25 MG CAP PO PRN (08:36)
[2022-03-21] MEDS ORDERED: NALOXONE 0.4 MG/ML 1 ML VIAL IV PRN (08:36)
[2022-03-21] MEDS ORDERED: METOCLOPRAMIDE 5 MG/ML 2 ML VIAL IVP PRN (08:36)
[2022-03-21] MEDS ORDERED: ZOLPIDEM 5 MG TAB PO PRN (08:36)
[2022-03-21] MEDS ORDERED: diphenhydrAMINE 50 MG/ML 1 ML VIAL IVP PRN ×2 (08:36)
[2022-03-21] MEDS ORDERED: LANOLIN CREAM 5 GM TUBE TOPICAL PRN (08:36)
[2022-03-21] MEDS ORDERED: SIMETHICONE 80 MG CHEWABLE PO PRN (08:36)
--- NOTE | 2022-03-21 08:36 | P.OP ---
Date of Procedure: 03/21/22 Preoperative Diagnosis: 1. at 39 weeks and 3 days 2. Previous section Postoperative Diagnosis: 1. at 39 weeks and 3 days 2. Previous section Procedure(s) Performed: Repeat low transverse Anesthesia: spinal Surgeon: Jaz Meredith Camera Supervisor #1: Jose Eduardo Hernandez Estimated Blood Loss (ml): 650 IV fluids (ml): 1,000 Urine output (ml): 50 Pathology: none sent Condition: stable Disposition: floor Operative Findings: Viable , Apgars 8, 9, weight 8 lbs. 9 oz. Description of Procedure: Patient was taken to the operating room where spinal anesthesia was found be adequate. She was prepped and draped in normal sterile fashion in dorsal supine position with a leftward tilt. Pfannenstiel skin incision was made the scalpel and carried through to the underlying layer of fascia with the scalpel. Fascia was incised in midline and carried bilaterally with the Weiss scissors. The superior aspect of the fascial incision was grasped with [place] clamps elevated and the underlying rectus muscles dissected off with the Weiss's. Attention was then turned to inferior aspect of same incision which in a similar fashion was grasped tented up and the underlying rectus muscles dissected off with the Weiss's. The rectus muscles were the midline and the peritoneum was identified tented up and entered sharply with the scalpel. The incision was extended superiorly and inferiorly with good visualization of the bladder. The bladder blade was inserted and the vesicouterine peritoneum was incised the [place] then carried bilaterally and bladder flap created digitally. A low transverse incision was then made on the uterus with the scalpel. This was carried bilaterally and digital manner. 's head delivered atraumatically, nose and mouth bulb suctioned, cord clamped and cut, handed off to waiting nurses. Apgars 8,9, weight 8 lbs. 9 oz. Placenta delivered manually, intact with three-vessel cord. The uterus is exteriorized and cleared of all clots and debris. The uterine incision was closed with 0 Vicryl in a running locked fashion. Second layer of the same sutures used in imbricating fashion to obtain excellent hemostasis. Both ovaries and tubes appeared normal. The uterus was placed back into the abdomen. The peritoneum was reapproximated using 2-0 Vicryl in a running fashion. The muscles were reapproximated using 2- 0 Vicryl in interrupted fashion. The fascia was reapproximated using 0 Vicryl in a running fashion. The subcutaneous tissues closed with 3-0 Vicryl running fashion. The skin was closed joni. Patient tolerated the procedure well, sponge and instrument counts were correct times 2 and she was taken to the recovery room in stable condition.
[2022-03-21] MEDS ORDERED: OXYTOCIN 30 UNITS/500 ML NS 30 UNIT in SALINE 1 500ML.BAG IV SCH (08:45)
[2022-03-21] MEDS ORDERED: MEPERIDINE 50 MG/ML SYRINGE IVP STA (09:08)
[2022-03-21] MEDS: ACETAMINOPHEN TAB 500 MG TAB PO SCH ×2 (11:47→17:37)
[2022-03-21] MEDS: KETOROLAC 15 MG/ML 1 ML VIAL IVP SCH ×3 (14:52→21:48)
[2022-03-21] MEDS: IBUPROFEN 600 MG TAB PO SCH ×2 (17:15→21:50)
[2022-03-21] MEDS ORDERED: Rhogam IMMUNE GLOBULIN 1,500 UNIT/1 ML IM ONE (17:39)
[2022-03-21] MEDS: SENNOSIDES-DOCUSATE SODIUM 1 EACH TAB PO SCH (20:13)
[2022-03-22] MEDS: LACTATED RINGERS 1,000 ML IV SCH (01:24)
[2022-03-22] MEDS: ACETAMINOPHEN TAB 500 MG TAB PO SCH ×4 (03:06→21:05)
[2022-03-22] MEDS: IBUPROFEN 600 MG TAB PO SCH ×3 (04:53→17:57)
[2022-03-22] MEDS: KETOROLAC 15 MG/ML 1 ML VIAL IVP SCH (04:53)
--- NOTE | 2022-03-22 06:36 | P.PN ---
Progress Note - Text Progress Note Date: 03/22/22 POD 1 c section from spinal with duramorph. doing well, no lower ext weakness, no pruritus, no n/v. pain is 3/10 Vitals are stable.
[2022-03-22 07:22] LABS: Basophils % (A) 0 %; Eosinophils # (A) 0.3 k/uL (0-0.7); Eosinophils % (A) 3 %; HCT 36.1 % (34.0-46.0); HGB 11.5 gm/dL (11.4-16.0); Lymphocytes # (A) 1.9 k/uL (1.0-4.8); Lymphocytes % (A) 16 %; MCH 29.2 pg (25.0-35.0); MCV 91.1 fL (80.0-100.0); Monocytes # (A) 0.6 k/uL (0-1.0); Monocytes % (A) 5 %; Neutrophils # (A) 9.1 k/uL (1.3-7.7); Neutrophils % (A) 76 %; Platelet Count 175 k/uL (150-450); RBC 3.96 m/uL (3.80-5.40); RDW 13.6 % (11.5-15.5); WBC 12.1 k/uL (3.8-10.6)
[2022-03-22] MEDS: SENNOSIDES-DOCUSATE SODIUM 1 EACH TAB PO SCH ×2 (07:37→19:30)
--- NOTE | 2022-03-22 07:53 | P.PNOBGPC ---
Subjective - Subjective Principal diagnosis: S/P RLTCS POD #1 Interval history: Patient seen and examined. Denies nausea, vomiting, chest pain, shortness of breath or any calf pain. Patient reports: Reports appetite normal, Reports voiding normally, Reports pain well controlled, Reports ambulating normally : doing well Objective - Vital Signs Latest vital signs: Vital Signs Temp Pulse Resp BP Pulse Ox 03/22/22 04:00 98.4 F 84 16 109/69 03/22/22 00:00 98.0 F 88 16 111/64 96 03/21/22 20:00 97.8 F 79 16 119/77 97 03/21/22 16:00 97.8 F 67 16 114/70 03/21/22 11:48 97.9 F 67 16 112/68 97 03/21/22 10:39 96.2 F L 68 16 111/67 03/21/22 10:09 68 16 112/59 03/21/22 09:39 64 16 104/59 03/21/22 09:24 62 16 110/68 99 03/21/22 09:09 75 16 111/67 100 03/21/22 08:54 72 16 114/56 98 03/21/22 08:39 97.2 F L 85 16 127/63 95 Intake and Output 03/21/22 03/22/22 03/22/22 22:59 06:59 14:59 Output Total 200 500 Balance -200 -500 Output: Urine 200 500 Other: # Voids 2 - Exam Lungs: bilateral: normal Chest: Normal S1, Normal S2 Extremities: Present: normal Abdomen: Present: normal appearance, soft. Absent: distention, tenderness Incision: Present: normal, dry, intact Uterus: Present: normal, firm - Labs Labs: Abnormal Lab Results - Last 24 Hours (Table) 03/22/22 Range/Units 06:50 WBC 12.1 H (3.8-10.6) k/uL Neutrophils # 9.1 H (1.3-7.7) k/uL Assessment and Plan (1) 39 weeks gestation of Current Visit: Yes Status: Resolved Code(s): Z3A.39 - 39 WEEKS GESTATION OF SNOMED Code(s): 21551396 (2) Previous section Current Visit: No Status: Chronic Code(s): Z98.891 - HISTORY OF UTERINE SCAR FROM PREVIOUS SURGERY SNOMED Code(s): 422936645 (3) Status post repeat low transverse section Current Visit: Yes Status: Acute Code(s): Z98.891 - HISTORY OF UTERINE SCAR FROM PREVIOUS SURGERY SNOMED Code(s): 599163422 Plan: 1. Increase ambulation 2. By mouth pain medication 3. Regular diet
[2022-03-23 00:50] VITALS: RESP 16
[2022-03-23] MEDS: IBUPROFEN 600 MG TAB PO SCH ×2 (00:53→06:55)
[2022-03-23] MEDS: ACETAMINOPHEN TAB 500 MG TAB PO SCH (04:03)
--- NOTE | 2022-03-23 07:39 | P.DS ---
Providers Date of admission: 03/21/22 05:58 Expected date of discharge: 03/23/22 Attending physician: Jaz Meredith Primary care physician: Stated None - Discharge Diagnosis(es) (1) 39 weeks gestation of Current Visit: Yes Status: Resolved (2) Previous section Current Visit: No Status: Resolved (3) Status post repeat low transverse section Current Visit: Yes Status: Acute Hospital Course: Patient presented for repeat low transverse . She underwent this procedure without, location. Patient denies nausea, vomiting, chest pain, shortness of breath or any calf pain. She will be discharged home day #2 in stable condition to follow-up with me in one week. Plan - Discharge Summary Discharge Rx Participant: Yes New Discharge Prescriptions: New Ibuprofen [Motrin] 600 mg PO Q6H #30 tab oxyCODONE HCL [OxyIR] 5 mg PO Q4HR PRN #18 tab PRN Reason: Pain Scale 4 - 6 No Action Pnv,Calcium 72/Iron/Folic Acid [ Plus Tablet] 1 tab PO HS Loratadine [Claritin] 10 mg PO HS Discharge Medication List Pnv,Calcium 72/Iron/Folic Acid [ Plus Tablet] 1 tab PO HS 03/09/17 [History] Loratadine [Claritin] 10 mg PO HS 08/01/19 [History] Ibuprofen [Motrin] 600 mg PO Q6H #30 tab 03/23/22 [Rx] oxyCODONE HCL [OxyIR] 5 mg PO Q4HR PRN #18 tab 03/23/22 [Rx] Follow up Appointment(s)/Referral(s): Jaz Meredith DO [Doctor of Osteopathic Medicine] - 05/03/22 3:45 pm (Post Op 04-05-2022 at 01:30 p.m.) Discharge Disposition: HOME SELF-CARE
[2022-03-23] MEDS: SENNOSIDES-DOCUSATE SODIUM 1 EACH TAB PO SCH (08:14)
[2022-03-23 08:42] VITALS: BP 123/76; PULSE 73; TEMP 97.7
== END 2022-03-23 11:05 | disposition home or self-care (01) | DRG 787 ==
LOC: 4FBP 05:58
PROVIDERS: ADMIT Obstetrics & Gynecology; ATTEND Obstetrics & Gynecology
PROC: 10D00Z1 Extraction of Products of Conception, Low, Open Approach (ICD-10-PCS; principal; 2022-03-21 08:00)
DX: O34.211 Maternal care for low transverse scar from previous cesarean delivery (principal); K90.41 Non-celiac gluten sensitivity; F32.A Depression, unspecified; F41.9 Anxiety disorder, unspecified; O99.892 Other specified diseases and conditions complicating childbirth; J45.909 Unspecified asthma, uncomplicated; J40 Bronchitis, not specified as acute or chronic; K58.9 Irritable bowel syndrome, unspecified; O99.62 Diseases of the digestive system complicating childbirth; O99.344 Other mental disorders complicating childbirth; O99.52 Diseases of the respiratory system complicating childbirth; Z37.0 Single live birth; Z3A.39 39 weeks gestation of pregnancy; Z87.442 Personal history of urinary calculi; Z88.1 Allergy status to other antibiotic agents
CPT/HCPCS: 85025; 85461; 86850; 86900; 86901

== ENCOUNTER 2023-06-09 12:19 | Emergency (ER) | payer BC ==
[2023-06-09 12:42] VITALS: RESP 20; TEMP 97.9
[2023-06-09] MEDS ORDERED: SODIUM CHLORIDE 0.9% 500 ML 500 ML IV STA (15:24)
--- NOTE | 2023-06-09 15:29 | ED ---
General Adult HPI - General Chief complaint: Arrhythmia/Palpitations Stated complaint: sob Time Seen by Provider: 06/09/23 15:15 Source: patient, RN notes reviewed, old records reviewed Mode of arrival: ambulatory Limitations: no limitations - History of Present Illness Initial comments: Nontoxic anxious appearing 32-year-old female presents to the emergency room with complaints of palpitations with some dizziness today. Patient states that she has been dealing with palpitations for over a year and has not seen her primary care doctor because she does not have the money. States that she has never had a cardiac workup. Symptoms come and go sometimes lasting up to an hour, will improve when she bends her legs towards her chest or when she sits down. No syncope. 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 She denies any chest pain or diaphoresis. She does have a history of asthma and irritable bowel syndrome. No medications on a daily basis -: year(s) Location: chest Associated Symptoms: shortness of breath, other (dizziness) - Related Data Home Medications Medication Instructions Recorded Confirmed Pnv,Calcium 72/Iron/Folic Acid 1 tab PO HS 03/09/17 12/10/21 [ Plus Tablet] Loratadine [Claritin] 10 mg PO HS 08/01/19 12/10/21 Previous Rx's Medication Instructions Recorded Ibuprofen [Motrin] 600 mg PO Q6H #30 tab 03/23/22 oxyCODONE HCL [OxyIR] 5 mg PO Q4HR PRN #18 tab 03/23/22 Allergies Allergy/AdvReac Type Severity Reaction Status Date / Time amoxicillin Allergy Unknown Verified 06/09/23 12:40 Childhood gluten AdvReac Diarrhea Verified 06/09/23 12:40 Review of Systems ROS Statement: Those systems with pertinent positive or pertinent negative responses have been documented in the HPI. ROS Other: All systems not noted in ROS Statement are negative. Past Medical History Past Medical History: Asthma Additional Past Medical History / Comment(s): Hx bronchitis, IBS, kidney stones - passed 7, hx kidney and bladder infections. Fx bone Rt foot, History of Any Multi-Drug Resistant Organisms: None Reported Past Surgical History: Section Additional Past Surgical History / Comment(s): 2 c-sections Past Anesthesia/Blood Transfusion Reactions: Motion Sickness Past Psychological History: Anxiety, Depression Smoking Status: Never smoker Past Alcohol Use History: Occasional Past Drug Use History: None Reported - Past Family History Mother Family Medical History: Hypertension Additional Family Medical History / Comment(s): Multiple Sclerosis General Exam Limitations: no limitations General appearance: alert, in no apparent distress, anxious Head exam: Present: atraumatic Eye exam: Present: normal appearance. Absent: scleral icterus, conjunctival injection, periorbital swelling Neck exam: Present: full ROM. Absent: meningismus Respiratory exam: Present: normal lung sounds bilaterally. Absent: respiratory distress, accessory muscle use Cardiovascular Exam: Present: regular rate, normal rhythm. Absent: irregular rhythm GI/Abdominal exam: Present: soft Extremities exam: Present: full ROM, normal capillary refill. Absent: tenderness, pedal edema Neurological exam: Present: alert, oriented X3, normal gait Psychiatric exam: Present: anxious Skin exam: Present: warm, dry, normal color. Absent: cyanosis, diaphoretic, petechiae, pallor Course Vital Signs 06/09/23 06/09/23 06/09/23 12:36 16:07 16:19 Temperature 97.9 F Pulse Rate 98 Pulse Rate [ 79 98 Wire Charger ] Respiratory 20 Rate Blood Pressure 138/89 Blood Pressure 152/81 [Sitting] Blood Pressure [Standing] Blood Pressure 134/82 [Supine] O2 Sat by Pulse 100 99 99 Oximetry 06/09/23 16:31 Temperature Pulse Rate Pulse Rate [ 102 H Wire Charger ] Respiratory Rate Blood Pressure Blood Pressure [Sitting] Blood Pressure 163/87 [Standing] Blood Pressure [Supine] O2 Sat by Pulse 100 Oximetry EKG Findings - EKG Results: EKG: interpreted by ERMD, sinus rhythm (EKG interpreted by me shows sinus rhythm with a ventricular rate of 81, WA interval 0.154, QRS 0.94, QTC 0.446) Medical Decision Making - Medical Decision Making Was pt. sent in by a medical professional or institution (, PA, PALEOBOTANIST, urgent care, hospital, or longterm...) When possible be specific @ -No Did you speak to anyone other than the patient for history (EMS, parent, family, police, friend...)? What history was obtained from this source @ -No Did you review nursing and triage notes (agree or disagree)? Why? @ -I reviewed and agree with nursing and triage notes Were old charts reviewed (outside hosp., previous admission, EMS record, old EKG, old radiological studies, urgent care reports/EKG's, longterm records)? Report findings @ -No old charts were reviewed Differential Diagnosis (chest pain, altered mental status, abdominal pain women, abdominal pain men, vaginal bleeding, weakness, fever, dyspnea, syncope, headache, dizziness, GI bleed, back pain, seizure, CVA, palpatations, mental health, musculoskeletal)? @ -Differential Palpitations Ventricular arrhythmias, atrial arrhythmias, myocardial infarction, anemia, thyrotoxicosis, electrolyte imbalance, hypokalemia, pulmonary embolism, pulmonary disease, drugs, alcohol, anxiety, stress.... This is not meant to be an all-inclusive list. EKG interpreted by me (3pts min.). @ -yes EKG interpreted by me shows sinus rhythm with a ventricular rate of 81, WA interval 0.154, QRS 0.94, QTC 0.446. X-rays interpreted by me (1pt min.). @ -yes Chest x-ray interpreted by me shows no evidence of focal consolidation, cardiac silhouette within normal size. CT interpreted by me (1pt min.). @ -None done U/S interpreted by me (1pt. min.). @ -None done What testing was considered but not performed or refused? (CT, X-rays, U/S, labs)? Why? @ -None What meds were considered but not given or refused? Why? @ -None Did you discuss the management of the patient with other professionals (ashlie puente i.e. , PA, PALEOBOTANIST, lab, RT, psych nurse, social work professor, manager of business operations, teacher, adult probation officer, outpatient case manager)? Give summary @ -No Was smoking cessation discussed for >3mins.? @ -No Was critical care preformed (if so, how long)? @ -No Were there social determinants of health that impacted care today? How? (Homelessness, low income, unemployed, alcoholism, drug addiction, transpor tation, low edu. Level, literacy, decrease access to med. care, nursing home, rehab)? @ -No Was there de-escalation of care discussed even if they declined (Discuss DNR or withdrawal of care, Hospice)? DNR status @ -No What co-morbidities impacted this encounter? (DM, HTN, Smoking, COPD, CAD, Cancer, CVA, ARF, Chemo, Hep., AIDS, mental health diagnosis, sleep apnea, morbid obesity)? @ -Obesity, asthma, ibs Was patient admitted / discharged? Hospital course, mention meds given and route, prescriptions, significant lab abnormalities, going to OR and other pertinent info. @ -discharged Nontoxic anxious appearing 32-year-old female presents to the emergency room with complaints of palpitations with some dizziness today. Patient states that she has been dealing with palpitations for over a year and has not seen her primary care doctor because she does not have the money. States that she has never had a cardiac workup. Symptoms come and go sometimes lasting up to an hour, will improve when she bends her legs towards her chest or when she sits down. No syncope. 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 She denies any chest pain or diaphoresis. She does have a history of asthma and irritable bowel syndrome. No medications on a daily basis D-dimer is negative. Electrolytes show no concerning findings. Troponin negative at 0.012. TSH is 2.3. Chest x-ray interpreted by me shows no evidence of focal consolidation, cardiac silhouette within normal size. Radiologist interpretation no acute process. I did advise patient that this maybe POTS syndrome recommended followup with PCP and holter monitor. She is agreeable to this plan of care. Case discussed with Dr. Osorio. Undiagnosed new problem with uncertain prognosis? @ -No Drug Therapy requiring intensive monitoring for toxicity (Heparin, Nitro, Insulin, Cardizem)? @ -No Were any procedures done? @ -No Diagnosis/symptom? @ -Palpitations Acute, or Chronic, or Acute on Chronic? @ -Acute on chronic Uncomplicated (without systemic symptoms) or Complicated (systemic symptoms)? @ -Uncomplicated Side effects of treatment? @ -No Exacerbation, Progression, or Severe Exacerbation? @ -No Poses a threat to life or bodily function? How? (Chest pain, USA, [place], pneumonia, PE, COPD, DKA, ARF, appy, cholecystitis, CVA, Diverticulitis, Homicidal, Suicidal, threat to staff... and all critical care pts) @ -No - Lab Data Result diagrams: 06/09/23 15:46 06/09/23 15:46 Lab Results 09/16/23 09/16/23 09/16/23 Range/Units 15:46 15:46 15:46 WBC 11.2 H (3.8-10.6) k/uL RBC 5.71 H (3.80-5.40) m/uL Hgb 16.6 H (11.4-16.0) gm/dL Hct 49.0 H (34.0-46.0) % MCV 85.8 (80.0-100.0) fL MCH 29.1 (25.0-35.0) pg MCHC 33.9 (31.0-37.0) g/dL RDW 12.0 (11.5-15.5) % Plt Count 324 (150-450) k/uL MPV 7.2 Neutrophils % 67 % Lymphocytes % 26 % Monocytes % 3 % Eosinophils % 1 % Basophils % 0 % Neutrophils # 7.5 (1.3-7.7) k/uL Lymphocytes # 2.9 (1.0-4.8) k/uL Monocytes # 0.4 (0-1.0) k/uL Eosinophils # 0.2 (0-0.7) k/uL Basophils # 0.0 (0-0.2) k/uL PT 10.1 (9.0-12.0) sec INR 0.9 (<1.2) APTT 24.4 (22.0-30.0) sec D-Dimer 0.22 (<0.60) mg/L FEU Sodium 137 (137-145) mmol/L Potassium 3.8 (3.5-5.1) mmol/L Chloride 102 (98-107) mmol/L Carbon Dioxide 23 (22-30) mmol/L Anion Gap 12 mmol/L BUN 17 (7-17) mg/dL Creatinine 0.63 (0.52-1.04) mg/dL Est GFR (CKD-EPI)AfAm >90 (>60 ml/min/1.73 sqM) Est GFR (CKD-EPI)NonAf >90 (>60 ml/min/1.73 sqM) Glucose 91 (74-99) mg/dL Calcium 10.6 H (8.4-10.2) mg/dL Magnesium 1.8 (1.6-2.3) mg/dL Total Bilirubin 0.5 (0.2-1.3) mg/dL AST 24 (14-36) U/L ALT 19 (4-34) U/L Alkaline Phosphatase 104 (38-126) U/L Troponin I (0.000-0.034) ng/mL Total Protein 8.5 H (6.3-8.2) g/dL Albumin 5.0 (3.5-5.0) g/dL TSH 2.380 (0.465-4.680) mIU/L 06/09/23 Range/Units 15:46 WBC (3.8-10.6) k/uL RBC (3.80-5.40) m/uL Hgb (11.4-16.0) gm/dL Hct (34.0-46.0) % MCV (80.0-100.0) fL MCH (25.0-35.0) pg MCHC (31.0-37.0) g/dL RDW (11.5-15.5) % Plt Count (150-450) k/uL MPV Neutrophils % % Lymphocytes % % Monocytes % % Eosinophils % % Basophils % % Neutrophils # (1.3-7.7) k/uL Lymphocytes # (1.0-4.8) k/uL Monocytes # (0-1.0) k/uL Eosinophils # (0-0.7) k/uL Basophils # (0-0.2) k/uL PT (9.0-12.0) sec INR (<1.2) APTT (22.0-30.0) sec D-Dimer (<0.60) mg/L FEU Sodium (137-145) mmol/L Potassium (3.5-5.1) mmol/L Chloride (98-107) mmol/L Carbon Dioxide (22-30) mmol/L Anion Gap mmol/L BUN (7-17) mg/dL Creatinine (0.52-1.04) mg/dL Est GFR (CKD-EPI)AfAm (>60 ml/min/1.73 sqM) Est GFR (CKD-EPI)NonAf (>60 ml/min/1.73 sqM) Glucose (74-99) mg/dL Calcium (8.4-10.2) mg/dL Magnesium (1.6-2.3) mg/dL Total Bilirubin (0.2-1.3) mg/dL AST (14-36) U/L ALT (4-34) U/L Alkaline Phosphatase (38-126) U/L Troponin I <0.012 (0.000-0.034) ng/mL Total Protein (6.3-8.2) g/dL Albumin (3.5-5.0) g/dL TSH (0.465-4.680) mIU/L Disposition Clinical Impression: Palpitations Disposition: HOME SELF-CARE Condition: Good Instructions (If sedation given, give patient instructions): Heart Palpitations (ED) Additional Instructions: Follow-up with primary care doctor next week. I do recommend that you obtain a Holter monitor to monitor your palpitations. Return to the emergency room with any new or concerning symptoms. Is patient prescribed a controlled substance at d/c from ED?: No Referrals: Blaze Escobar MD [Primary Care Provider] - 1-2 days Time of Disposition: 16:59
[2023-06-09 15:55] LABS: Basophils % (A) 0 %; Eosinophils # (A) 0.2 k/uL (0-0.7); Eosinophils % (A) 1 %; HGB 16.6 gm/dL (11.4-16.0); Lymphocytes # (A) 2.9 k/uL (1.0-4.8); Lymphocytes % (A) 26 %; MCH 29.1 pg (25.0-35.0); MCHC 33.9 g/dL (31.0-37.0); MCV 85.8 fL (80.0-100.0); Mean Platelet Volume 7.2; Monocytes # (A) 0.4 k/uL (0-1.0); Monocytes % (A) 3 %; Neutrophils # (A) 7.5 k/uL (1.3-7.7); Neutrophils % (A) 67 %; Platelet Count 324 k/uL (150-450); RBC 5.71 m/uL (3.80-5.40); WBC 11.2 k/uL (3.8-10.6)
[2023-06-09 16:13] LABS: INR 0.9 (<1.2); Partial Thromboplastin Time 24.4 sec (22.0-30.0); Prothrombin Time 10.1 sec (9.0-12.0)
[2023-06-09 16:23] LABS: ALT 19 U/L (4-34); AST 24 U/L (14-36); African American GFR (CKD) >90 (>60 ml/min/1.73 sqM); Alkaline Phosphatase 104 U/L (38-126); Anion Gap 12 mmol/L; Blood Urea Nitrogen 17 mg/dL (7-17); Calcium 10.6 mg/dL (8.4-10.2); Carbon Dioxide 23 mmol/L (22-30); Chloride 102 mmol/L (98-107); Glucose 91 mg/dL (74-99); Magnesium 1.8 mg/dL (1.6-2.3); Non-African American GFR(CKD) >90 (>60 ml/min/1.73 sqM); Potassium 3.8 mmol/L (3.5-5.1); Sodium 137 mmol/L (137-145); Total Bilirubin 0.5 mg/dL (0.2-1.3); Total Protein 8.5 g/dL (6.3-8.2)
--- NOTE | 2023-06-09 16:30 | XR ---
EXAMINATION TYPE: XR chest 2V DATE OF EXAM: 06/09/2023 COMPARISON: NONE HISTORY: Dysrhythmia. TECHNIQUE: Frontal and lateral views of the chest are obtained. FINDINGS: There is no focal air space opacity, pleural effusion, or pneumothorax seen. The cardiac silhouette size is within normal limits. The osseous structures are intact. IMPRESSION: No acute process.
[2023-06-09 17:16] VITALS: BP 127/79; PULSE 75
== END 2023-06-09 17:21 | disposition home or self-care (01) ==
LOC: EC 12:19
DX: R00.2 Palpitations (principal); J45.909 Unspecified asthma, uncomplicated; Z86.59 Personal history of other mental and behavioral disorders; Z88.0 Allergy status to penicillin; Z91.018 Allergy to other foods
CPT/HCPCS: 36415; 71046; 80053; 83735; 84443; 84484; 85025; 85379; 85610; 85730; 93005; 96360; 99285

== ENCOUNTER 2024-01-19 14:47 | Emergency (ER) | payer OTHER, SELFPAY ==
[2024-01-19 15:41] VITALS: RESP 18
--- NOTE | 2024-01-19 16:05 | ED ---
General Adult HPI - General Chief complaint: Animal Bite Stated complaint: Animal bite-dog Time Seen by Provider: 01/19/24 15:05 Source: patient, RN notes reviewed Mode of arrival: ambulatory Limitations: no limitations - History of Present Illness Initial comments: 33-year-old female presents to the emergency department for evaluation of dog bite to her hand. 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 Patient reports puncture wounds to her 2nd and 3rd digits of her left hand. She states that all the dogs are required to be up-to-date on rabies vaccination. She is up to date on her tetanus vaccination. - Related Data Home Medications Medication Instructions Recorded Confirmed Pnv,Calcium 72/Iron/Folic Acid 1 tab PO HS 03/09/17 12/10/21 [ Plus Tablet] Loratadine [Claritin] 10 mg PO HS 08/01/19 12/10/21 Previous Rx's Medication Instructions Recorded Ibuprofen [Motrin] 600 mg PO Q6H #30 tab 03/23/22 oxyCODONE HCL [OxyIR] 5 mg PO Q4HR PRN #18 tab 03/23/22 Doxycycline Hyclate 100 mg PO BID 7 Days #14 tab 01/19/24 Allergies Allergy/AdvReac Type Severity Reaction Status Date / Time amoxicillin Allergy Unknown Verified 06/09/23 12:40 Childhood gluten AdvReac Diarrhea Verified 06/09/23 12:40 Review of Systems ROS Statement: Those systems with pertinent positive or pertinent negative responses have been documented in the HPI. ROS Other: All systems not noted in ROS Statement are negative. Past Medical History Past Medical History: Asthma Additional Past Medical History / Comment(s): Hx bronchitis, IBS, kidney stones - passed 7, hx kidney and bladder infections. Fx bone Rt foot, History of Any Multi-Drug Resistant Organisms: None Reported Past Surgical History: Section Additional Past Surgical History / Comment(s): 2 c-sections Past Anesthesia/Blood Transfusion Reactions: Motion Sickness Past Psychological History: Anxiety, Depression Smoking Status: Never smoker Past Alcohol Use History: Occasional Past Drug Use History: None Reported - Past Family History Mother Family Medical History: Hypertension Additional Family Medical History / Comment(s): Multiple Sclerosis General Exam Limitations: no limitations General appearance: alert, in no apparent distress Head exam: Present: atraumatic, normocephalic, normal inspection Eye exam: Present: normal appearance, PERRL, EOMI. Absent: scleral icterus, conjunctival injection, periorbital swelling Respiratory exam: Present: normal lung sounds bilaterally. Absent: respiratory distress, wheezes, rales, rhonchi, stridor Cardiovascular Exam: Present: regular rate, normal rhythm, normal heart sounds. Absent: systolic murmur, diastolic murmur, rubs, gallop, clicks Extremities exam: Present: normal inspection, full ROM, normal capillary refill, other (Swelling to second and third digits of the left hand with puncture wound to both the distal second and third digits.). Absent: tenderness, pedal edema, joint swelling, calf tenderness Back exam: Present: normal inspection Neurological exam: Present: alert, oriented X3 Psychiatric exam: Present: normal affect, normal mood Skin exam: Present: warm, dry, normal color. Absent: intact Course Vital Signs 01/19/24 01/19/24 14:58 16:40 Temperature 98.0 F 97.9 F Pulse Rate 90 86 Respiratory 18 18 Rate Blood Pressure 128/82 124/78 O2 Sat by Pulse 97 98 Oximetry Medical Decision Making - Medical Decision Making Was pt. sent in by a medical professional or institution (, PA, BRIM STRETCHER, urgent care, hospital, or usp...) When possible be specific @ -No Did you speak to anyone other than the patient for history (EMS, parent, family, police, friend...)? What history was obtained from this source @ -No Did you review nursing and triage notes (agree or disagree)? Why? @ -I reviewed and agree with nursing and triage notes Were old charts reviewed (outside hosp., previous admission, EMS record, old EKG, old radiological studies, urgent care reports/EKG's, usp records)? Report findings @ -No old charts were reviewed Differential Diagnosis (chest pain, altered mental status, abdominal pain women, abdominal pain men, vaginal bleeding, weakness, fever, dyspnea, syncope, headache, dizziness, GI bleed, back pain, seizure, CVA, palpatations, mental health, musculoskeletal)? @ -Differential Musculoskeletal Muscular strain, contusion, ligament sprain, fracture, arthritis, septic arthritis, bursitis, cellulitis, muscle spasm, nerve compression, DVT, arterial occlusion, herpes zoster, electrolyte abnormality, tumor.... This is not meant to be in all inclusive list EKG interpreted by me (3pts min.). @ -None X-rays interpreted by me (1pt min.). @ -None done CT interpreted by me (1pt min.). @ -None done U/S interpreted by me (1pt. min.). @ -None done What testing was considered but not performed or refused? (CT, X-rays, U/S, labs)? Why? @ -None What meds were considered but not given or refused? Why? @ -None Did you discuss the management of the patient with other professionals (professionals i.e. DrFabrizio, PA, BRIM STRETCHER, lab, RT, psych nurse, socially responsible investment adviser, prototype model maker, teacher, communications officer, trimming caser)? Give summary @ -No Was smoking cessation discussed for >3mins.? @ -No Was critical care preformed (if so, how long)? @ -No Were there social determinants of health that impacted care today? How? (Homelessness, low income, unemployed, alcoholism, drug addiction, transportation, low edu. Level, literacy, decrease access to med. care, [facility], rehab)? @ -No Was there de-escalation of care discussed even if they declined (Discuss DNR or withdrawal of care, Hospice)? DNR status @ -No What co-morbidities impacted this encounter? (DM, HTN, Smoking, COPD, CAD, Cancer, CVA, ARF, Chemo, Hep., AIDS, mental health diagnosis, sleep apnea, morbid obesity)? @ -None Was patient admitted / discharged? Hospital course, mention meds given and route, prescriptions, significant lab abnormalities, going to OR and other pertinent info. @ -Discharge. Patient presented to the emergency department for evaluation of dog bite to the right hand. 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 Patient is up-to-date on her tetanus vaccination. Wounds were cleaned. Patient will be started on p.o. antibiotics. Patient understanding agreeable plan. Patient stable at time of discharge. Case discussed with Dr. Mccloud Undiagnosed new problem with uncertain prognosis? @ -No Drug Therapy requiring intensive monitoring for toxicity (Heparin, Nitro, Insulin, Cardizem)? @ -No Were any procedures done? @ -No Diagnosis/symptom? @ -Dog bite Acute, or Chronic, or Acute on Chronic? @ -Acute Uncomplicated (without systemic symptoms) or Complicated (systemic symptoms)? @ -Uncomplicated Side effects of treatment? @ -No Exacerbation, Progression, or Severe Exacerbation? @ -No Poses a threat to life or bodily function? How? (Chest pain, USA, [place], pneumonia, PE, COPD, DKA, ARF, appy, cholecystitis, CVA, Diverticulitis, Homicidal, Suicidal, threat to staff... and all critical care pts) @ -No Disposition Clinical Impression: Dog bite Disposition: HOME SELF-CARE Condition: Stable Instructions (If sedation given, give patient instructions): Animal Bite (ED) Additional Instructions: Please keep wound clean and dry. Take antibiotics to completion. Return to the emergency department for new or worsening symptoms. Prescriptions: Doxycycline Hyclate 100 mg PO BID 7 Days #14 tab Is patient prescribed a controlled substance at d/c from ED?: No Referrals: Blaze Escobar MD [Primary Care Provider] - 1-2 days
[2024-01-19 16:57] VITALS: BP 124/78; PULSE 86; TEMP 97.9
== END 2024-01-19 16:41 | disposition home or self-care (01) ==
LOC: EC 14:47
DX: S61.451A Open bite of right hand, initial encounter (principal); Z88.6 Allergy status to analgesic agent; Z88.5 Allergy status to narcotic agent; Z88.8 Allergy status to other drugs, medicaments and biological substances; W54.0XXA Bitten by dog, initial encounter
CPT/HCPCS: 99283

== ENCOUNTER 2024-02-14 12:14 | Emergency (ER) | payer OTHER ==
[2024-02-14 13:08] VITALS: TEMP 98.3
--- NOTE | 2024-02-14 13:49 | XR ---
EXAMINATION TYPE: XR chest 2V DATE OF EXAM: 02/14/2024 COMPARISON: 06/09/2023 INDICATION: Syncope TECHNIQUE: Frontal and lateral views of the chest are obtained. FINDINGS: The heart size is normal. The pulmonary vasculature is normal. The lungs are clear. There is a small nodule above the right diaphragm, present previously. IMPRESSION: 1. No acute pulmonary process. 2. Chronic nodularity at the right diaphragm
[2024-02-14 14:12] LABS: Basophils % (A) 0 %; Eosinophils # (A) 0.1 k/uL (0-0.7); Eosinophils % (A) 1 %; HCT 45.7 % (34.0-46.0); HGB 15.1 gm/dL (11.4-16.0); Lymphocytes # (A) 2.4 k/uL (1.0-4.8); Lymphocytes % (A) 20 %; MCH 27.9 pg (25.0-35.0); MCHC 33.1 g/dL (31.0-37.0); MCV 84.1 fL (80.0-100.0); Mean Platelet Volume 7.8; Monocytes # (A) 0.5 k/uL (0-1.0); Monocytes % (A) 4 %; Neutrophils # (A) 8.9 k/uL (1.3-7.7); Neutrophils % (A) 74 %; Platelet Count 302 k/uL (150-450); RBC 5.43 m/uL (3.80-5.40); RDW 12.5 % (11.5-15.5)
[2024-02-14 14:27] LABS: ALT 22 U/L (4-34); AST 24 U/L (14-36); African American GFR (CKD) >90 (>60 ml/min/1.73 sqM); Albumin 4.5 g/dL (3.5-5.0); Alkaline Phosphatase 67 U/L (38-126); Anion Gap 8 mmol/L; Blood Urea Nitrogen 16 mg/dL (7-17); Calcium 9.5 mg/dL (8.4-10.2); Carbon Dioxide 22 mmol/L (22-30); Chloride 107 mmol/L (98-107); Glucose 87 mg/dL (74-99); Non-African American GFR(CKD) >90 (>60 ml/min/1.73 sqM); Potassium 4.2 mmol/L (3.5-5.1); Sodium 137 mmol/L (137-145); Total Bilirubin 0.4 mg/dL (0.2-1.3); Total Protein 7.3 g/dL (6.3-8.2)
--- NOTE | 2024-02-14 15:18 | ED ---
General Adult HPI - General Chief complaint: Syncope Stated complaint: Syncope Source: patient - History of Present Illness Initial comments: 33-year-old female presents emergency department reporting syncope. States she was at work when she started to feel extremely hot. She laid down on the ground and passed out. Her coworker stated that she was shaking. Denies seizure-like activity. Patient states she has passed out previously because of her POTS. Reports that she needs further workup for diagnosis of POTS but just got her insurance reinstated. Patient denies any trauma from the episode. She denies any chest pain. No concern for . Still feels lightheaded at this time. No other alleviating, precipitating or modifying factors - Related Data Home Medications Medication Instructions Recorded Confirmed Loratadine [Claritin] 10 mg PO HS 08/01/19 02/14/24 Multivitamins, Thera [Multivitamin 1 tab PO HS 02/14/24 02/14/24 (formulary)] Pyridoxine [Vitamin B-6] 50 mg PO HS 02/14/24 02/14/24 Allergies Allergy/AdvReac Type Severity Reaction Status Date / Time amoxicillin Allergy Unknown Verified 02/14/24 14:08 Childhood gluten AdvReac Diarrhea, Verified 02/14/24 14:08 gi upset, fatigue Review of Systems ROS Statement: Those systems with pertinent positive or pertinent negative responses have been documented in the HPI. ROS Other: All systems not noted in ROS Statement are negative. Past Medical History Past Medical History: Asthma Additional Past Medical History / Comment(s): Hx bronchitis, IBS, kidney stones - passed 7, hx kidney and bladder infections. Fx bone Rt foot,. POTS History of Any Multi-Drug Resistant Organisms: None Reported Past Surgical History: Section Additional Past Surgical History / Comment(s): 2 c-sections Past Anesthesia/Blood Transfusion Reactions: Motion Sickness Past Psychological History: Anxiety, Depression Smoking Status: Never smoker Past Alcohol Use History: Occasional Past Drug Use History: None Reported - Past Family History Mother Family Medical History: Hypertension Additional Family Medical History / Comment(s): Multiple Sclerosis General Exam General appearance: alert, in no apparent distress Head exam: Present: atraumatic, normocephalic, normal inspection Eye exam: Present: normal appearance, PERRL, EOMI. Absent: scleral icterus, conjunctival injection, periorbital swelling ENT exam: Present: normal exam, mucous membranes moist Neck exam: Present: normal inspection. Absent: tenderness, meningismus, lymphadenopathy Respiratory exam: Present: normal lung sounds bilaterally. Absent: respiratory distress, wheezes, rales, rhonchi, stridor Cardiovascular Exam: Present: regular rate, normal rhythm, normal heart sounds. Absent: systolic murmur, diastolic murmur, rubs, gallop, clicks GI/Abdominal exam: Present: soft, normal bowel sounds. Absent: distended, tenderness, guarding, rebound, rigid Extremities exam: Present: normal inspection, full ROM, normal capillary refill. Absent: tenderness, pedal edema, joint swelling, calf tenderness Back exam: Present: normal inspection Neurological exam: Present: alert, oriented X3, CN II-XII intact Psychiatric exam: Present: normal affect, normal mood Skin exam: Present: warm, dry, intact, normal color. Absent: rash Course Vital Signs 02/14/24 02/14/24 02/14/24 12:15 15:18 17:41 Temperature 98.3 F Pulse Rate 90 82 81 Respiratory 18 16 16 Rate Blood Pressure 158/89 139/88 140/89 O2 Sat by Pulse 100 100 98 Oximetry Medical Decision Making - Medical Decision Making Was pt. sent in by a medical professional or institution (, PA, TRUCK LEASING MANAGER, urgent care, hospital, or [facility]...) When possible be specific @ -No Did you speak to anyone other than the patient for history (EMS, parent, family, police, friend...)? What history was obtained from this source @ -Spoke with the patient's friend for history Did you review nursing and triage notes (agree or disagree)? Why? @ -I reviewed and agree with nursing and triage notes Were old charts reviewed (outside hosp., previous admission, EMS record, old EKG, old radiological studies, urgent care reports/EKG's, [facility] records)? Report findings @ -No old charts were reviewed Differential Diagnosis (chest pain, altered mental status, abdominal pain women, abdominal pain men, vaginal bleeding, weakness, fever, dyspnea, syncope, headac he, dizziness, GI bleed, back pain, seizure, CVA, palpatations, mental health, musculoskeletal)? @ -Differential Syncope: Valvular disease, hypertrophic cardiomyopathy, pulmonary embolism, tamponade, tachycardia, bradycardia, MA, hypovolemia, hemorrhage, dissection, anemia, intracranial hemorrhage, seizure, hypoglycemia, carbon monoxide poisoning, this is not meant to be an all-inclusive list. EKG interpreted by me (3pts min.). @ -Yes and demonstrates sinus rhythm with a rate of 85. TX interval 153. QRS 85. QTc of 434. No acute ST segment elevations or depressions X-rays interpreted by me (1pt min.). @ -Yes and demonstrates no acute process CT interpreted by me (1pt min.). @ -None done U/S interpreted by me (1pt. min.). @ -None done What testing was considered but not performed or refused? (CT, X-rays, U/S, labs)? Why? @ -None What meds were considered but not given or refused? Why? @ -None Did you discuss the management of the patient with other professionals (professionals i.e. , PA, TRUCK LEASING MANAGER, lab, RT, psych nurse, social media campaign manager, hardness inspector, teacher, air defence officer, machine adjuster leader case trim)? Give summary @ -No Was smoking cessation discussed for >3mins.? @ -No Was critical care preformed (if so, how long)? @ -No Were there social determinants of health that impacted care today? How? (Homelessness, low income, unemployed, alcoholism, drug addiction, transportation, low edu. Level, literacy, decrease access to med. care, custodial, rehab)? @ -No Was there de-escalation of care discussed even if they declined (Discuss DNR or withdrawal of care, Hospice)? DNR status @ -No What co-morbidities impacted this encounter? (DM, HTN, Smoking, COPD, CAD, Cancer, CVA, ARF, Chemo, Hep., AIDS, mental health diagnosis, sleep apnea, morbid obesity)? @ -POTS Was patient admitted / discharged? Hospital course, mention meds given and route, prescriptions, significant lab abnormalities, going to OR and other pertinent info. @ -Discharge. Upon arrival patient seen and evaluated in room 19. Thorough history and physical exam was performed. IV was established. Patient given IV fluids. Laboratory studies are conducted. Twelve-lead EKG is obtained. Patient remains on manager cardiac cath. She feels improved. Will be discharged home. Needs echo and Holter monitoring. Follow-up with a advertising operations coordinator and return for any new or worsening symptoms. Patient agreeable plan was discharged in stable condition Undiagnosed new problem with uncertain prognosis? @ -No Drug Therapy requiring intensive monitoring for toxicity (Heparin, Nitro, Insulin, Cardizem)? @ -No Were any procedures done? @ -No Diagnosis/symptom? @ -Acute syncope, history of POTS Acute, or Chronic, or Acute on Chronic? @ -Acute Uncomplicated (without systemic symptoms) or Complicated (systemic symptoms)? @ -Complicated Side effects of treatment? @ -No Exacerbation, Progression, or Severe Exacerbation? @ -No Poses a threat to life or bodily function? How? (Chest pain, USA, MA, pneumonia, PE, COPD, DKA, ARF, appy, cholecystitis, CVA, Diverticulitis, Homicidal, Suicidal, threat to staff... and all critical care pts) @ -No - Lab Data Result diagrams: 02/14/24 14:01 02/14/24 14:01 Lab Results 02/14/24 02/14/24 02/14/24 Range/Units 14:01 14:01 14:01 WBC 12.0 H (3.8-10.6) k/uL RBC 5.43 H (3.80-5.40) m/uL Hgb 15.1 (11.4-16.0) gm/dL Hct 45.7 (34.0-46.0) % MCV 84.1 (80.0-100.0) fL MCH 27.9 (25.0-35.0) pg MCHC 33.1 (31.0-37.0) g/dL RDW 12.5 (11.5-15.5) % Plt Count 302 (150-450) k/uL MPV 7.8 Neutrophils % 74 % Lymphocytes % 20 % Monocytes % 4 % Eosinophils % 1 % Basophils % 0 % Neutrophils # 8.9 H (1.3-7.7) k/uL Lymphocytes # 2.4 (1.0-4.8) k/uL Monocytes # 0.5 (0-1.0) k/uL Eosinophils # 0.1 (0-0.7) k/uL Basophils # 0.0 (0-0.2) k/uL Sodium 137 (137-145) mmol/L Potassium 4.2 (3.5-5.1) mmol/L Chloride 107 (98-107) mmol/L Carbon Dioxide 22 (22-30) mmol/L Anion Gap 8 mmol/L BUN 16 (7-17) mg/dL Creatinine 0.52 (0.52-1.04) mg/dL Est GFR (CKD-EPI)AfAm >90 (>60 ml/min/1.73 sqM) Est GFR (CKD-EPI)NonAf >90 (>60 ml/min/1.73 sqM) Glucose 87 (74-99) mg/dL Calcium 9.5 (8.4-10.2) mg/dL Total Bilirubin 0.4 (0.2-1.3) mg/dL AST 24 (14-36) U/L ALT 22 (4-34) U/L Alkaline Phosphatase 67 (38-126) U/L Troponin I <0.012 (0.000-0.034) ng/mL Total Protein 7.3 (6.3-8.2) g/dL Albumin 4.5 (3.5-5.0) g/dL Disposition Clinical Impression: Syncope Disposition: HOME SELF-CARE Condition: Stable Instructions (If sedation given, give patient instructions): Syncope (ED) Additional Instructions: Please follow-up with your primary care doctor. I recommend an echo and Holter monitoring for your further workup of POTS. Return for any new or worsening symptoms Is patient prescribed a controlled substance at d/c from ED?: No Referrals: Blaze Escobar MD [Primary Care Provider] - 1-2 days Time of Disposition: 15:18
[2024-02-14] MEDS: SODIUM CHLORIDE 0.9% 2,000 ML IV ONE (15:36)
[2024-02-14 15:59] VITALS: RESP 16
[2024-02-14 18:28] VITALS: BP 140/89; PULSE 81
== END 2024-02-14 17:44 | disposition home or self-care (01) ==
LOC: EC 12:14
DX: R55 Syncope and collapse (principal); Z88.0 Allergy status to penicillin; Z91.018 Allergy to other foods
CPT/HCPCS: 36415; 71046; 80053; 84484; 85025; 93005; 96360; 96361; 99284

== ENCOUNTER → 2024-08-12 | Outpatient (CLI) | payer OTHER ==
[2024-08-12 18:34] LABS: Basophils # (A) 0.05 X 10*3/uL (0.00-0.10); Basophils % (A) 0.4 %; Eosinophils # (A) 0.24 X 10*3/uL (0.04-0.35); Eosinophils % (A) 2.1 %; HCT 49.4 % (37.2-46.3); HGB 16.6 g/dL (12.0-15.0); Lymphocytes # (A) 3.57 X 10*3/uL (0.90-5.00); Lymphocytes % (A) 30.8 %; MCH 28.4 pg (27.0-32.0); MCHC 33.6 g/dL (32.0-37.0); MCV 84.6 FL (80.0-97.0); Mean Platelet Volume 9.7 FL (9.5-12.2); Monocytes # (A) 0.68 X 10*3/uL (0.20-1.00); Monocytes % (A) 5.9 %; NRBC Per 100 WBC 0 X 10*3/uL (0.00-0.01); Neutrophils # (A) 7.02 X 10*3/uL (1.80-7.70); Neutrophils % (A) 60.5 %; Platelet Count 339 X 10*3/uL (140-440); RBC 5.84 X 10*6/uL (4.10-5.20); RDW 12.5 % (11.5-14.5); WBC 11.59 X 10*3/uL (4.50-10.00)
[2024-08-12 20:20] LABS: ALT 20 U/L (8-44); AST 24 U/L (13-35); Albumin 5.1 g/dL (3.8-4.9); Alkaline Phosphatase 93 U/L (41-126); BUN/Creat Ratio 21.25 Ratio (12.00-20.00); Calcium 10.2 mg/dL (8.7-10.3); Carbon Dioxide 21.5 mmol/L (21.6-31.8); Chloride 104 mmol/L (96-109); Glucose 97 mg/dL (70-110); Potassium 4.3 mmol/L (3.5-5.5); Sodium 139 mmol/L (135-145); Total Bilirubin 0.2 mg/dL (0.3-1.2); Total Protein 8.1 g/dL (6.2-8.2)
== END | disposition home or self-care (01) ==
LOC: LABWHC1 15:15
PROVIDERS: ATTEND Family Medicine
DX: R55 Syncope and collapse (principal); R01.1 Cardiac murmur, unspecified; R53.83 Other fatigue; R56.9 Unspecified convulsions
CPT/HCPCS: 36415; 80053; 84443; 85025

== ENCOUNTER → 2024-10-06 | Outpatient (CLI) | payer OTHER ==
--- NOTE | 2024-10-07 07:09 | CA ---
Transthoracic Echo Report Name: Arsh Kingston Age: 33 Gender: F : 1990 Exam Date: 10/06/2024 11:33 Exam Location: [facility] Ht (in): 64 Wt (lb): 236 Ordering Physician: Blaze Escobar MD Attending/Referring Phys: Processing Rep Leana Grubbs RDCS Procedure CPT: Indications: R55 SYNCOPE R01.1 HRT MURMUR R53.83 FATIGUE R56.9 Cardiac Hx: Technical Quality: Fair Contrast 1: Total Dose (mL): Contrast 2: Total Dose (mL): MEASUREMENTS (Male / Female) Normal Values 2D ECHO LV Diastolic Diameter PLAX 4.8 cm 4.2 - 5.9 / 3.9 - 5.3 cm LV Systolic Diameter PLAX 3.0 cm IVS Diastolic Thickness 0.9 cm 0.6 - 1.0 / 0.6 - 0.9 cm LVPW Diastolic Thickness 0.9 cm 0.6 - 1.0 / 0.6 - 0.9 cm LV Relative Wall Thickness 0.4 RV Internal Dim ED PLAX 3.2 cm LA Systolic Diameter LX 3.6 cm 3.0 - 4.0 / 2.7 - 3.8 cm LV Diastolic Volume MOD BP 114.1 cm??? 67 - 155 / 56 - 104 cm??? LV Systolic Volume MOD BP 36.5 cm??? 22 - 58 / 19 - 49 cm??? LV Ejection Fraction MOD BP 68.0 % >= 55 % LV Cardiac Index MOD BP 2959.4 cm???/min???m??? LV Diastolic Volume MOD 4C 107.8 cm??? LV Systolic Volume MOD 4C 31.7 cm??? LV Ejection Fraction MOD 4C 70.6 % LV Cardiac Index MOD 4C 2904.4 cm???/min???m??? LV Diastolic Length 4C 8.0 cm LV Systolic Length 4C 6.7 cm LV Diastolic Volume MOD 2C 122.7 cm??? LV Systolic Volume MOD 2C 43.4 cm??? LV Ejection Fraction MOD 2C 64.6 % LV Cardiac Index MOD 2C 3022.6 cm???/min???m??? LV Diastolic Length 2C 8.0 cm LV Systolic Length 2C 6.8 cm LA Volume 52.8 cm??? 18 - 58 / 22 - 52 cm??? LA Volume Index 23.4 cm???/m??? 16 - 28 cm???/m??? M-MODE Aortic Root Diameter MM 2.9 cm AV Cusp Separation MM 2.1 cm DOPPLER MV Area PHT 3.6 cm??? Mitral E Point Velocity 119.5 cm/s Mitral A Point Velocity 71.7 cm/s Mitral E to A Ratio 1.7 MV Deceleration Time 211.6 ms TR Peak Velocity 229.3 cm/s TR Peak Gradient 21.0 mmHg Right Ventricular Systolic Press 26.0 mmHg FINDINGS Left Ventricle Left ventricular ejection fraction is estimated at 55-60 %. Left ventricular cavity size normal. Mildly increased left ventricular diastolic volume. Right Ventricle Normal right ventricular size. Right ventricular systolic pressure within normal limits. Right Atrium Normal right atrial size. No right atrial thrombus or mass seen. Left Atrium Normal left atrial size. No left atrial thrombus or mass present. Mitral Valve Structurally normal mitral valve. No mitral stenosis, regurgitation or prolapse. Aortic Valve Trileaflet aortic valve. No aortic valve stenosis or regurgitation. Tricuspid Valve Structurally normal tricuspid valve. Mild tricuspid regurgitation. Pulmonic Valve Pulmonic valve not well visualized. No pulmonic regurgitation. Pericardium No pericardial or pleural effusion. Aorta Normal size aortic root and proximal ascending aorta. CONCLUSIONS 1. Normal left ventricular size and systolic function 2. Mild tricuspid regurgitation with no evidence of pulmonary hypertension Previewed by: Dr. Cameron Tamez MD (Electronically Signed) Final Date: 07 October 2024 07:08
== END | disposition home or self-care (01) ==
LOC: RADECHMAIN 11:25
PROVIDERS: ATTEND Family Medicine
DX: I36.1 Nonrheumatic tricuspid (valve) insufficiency (principal); R55 Syncope and collapse; R53.83 Other fatigue; R56.9 Unspecified convulsions; R01.1 Cardiac murmur, unspecified
CPT/HCPCS: 93306

== ENCOUNTER → 2024-10-06 | Outpatient (CLI) | payer OTHER | END | disposition home or self-care (01) | LOC: RADECHMAIN 11:28 | PROVIDERS: ATTEND Family Medicine | DX: R56.9 Unspecified convulsions (principal); R01.1 Cardiac murmur, unspecified; R53.83 Other fatigue; R55 Syncope and collapse | CPT/HCPCS: 93225 ==

== ENCOUNTER → 2025-03-31 | Outpatient (CLI) | payer OTHER ==
--- NOTE | 2025-03-31 21:50 | MR ---
INDICATION: Patient age:Female; 34 years old; Reason for study: R26.2 DIFFICULTY IN WALKING, NOT ELSEWHERE CLASSIF; PHH. COMPARISON: None. TECHNIQUE: Multi planar, multi sequence imaging was performed through the brain. The patient was then given 10 cc of Gadobutrol intravenously and multi planar, T1 fat-saturation images were obtained. MS protocol utilized. FINDINGS: The mcneil-white junctions, ventricular system, basal cisterns appear unremarkable. Age-appropriate cer ebral parenchymal volume. Diffusion-weighted imaging shows no evidence of restricted diffusion to sug gest acute/subacute infarct. Intracranial arterial flow voids are maintained. Midline structures show no abnormality. No FLAIR signal abnormality identified. The susceptibility weighted images do not re veal any evidence for micro-hemorrhage. Nonenhancing CSF attenuating 1.4 x 0.7 cm extra-axial lesion along the medial aspect of the right middle cranial fossa. Consistent with an arachnoid cyst. After a dministration of gadolinium, no abnormal enhancement is seen. The bone marrow signal is within normal limits. The globes are unremarkable. Mild mucosal thickening in the posterior left ethmoid sinus. IMPRESSION: 1. No evidence of acute/subacute infarct or abnormal enhancement. 2. No FLAIR signal abnormality to suggest demyelination. 3. Incidental small medial right middle cranial fossa arachnoid cyst. [facility], , 03/31/2025 9:47 PM
== END | disposition home or self-care (01) ==
LOC: RADMRIMAIN 16:30
PROVIDERS: ATTEND Family Medicine
DX: R26.2 Difficulty in walking, not elsewhere classified (principal)
CPT/HCPCS: 70553; A9585